=== PATIENT | female | born 1975 | race Caucasian/White ===

== ENCOUNTER 2021-01-30 16:50 | Emergency (ER) | payer OTHER, SELFPAY ==
--- NOTE | ~2021-01-30 | CT_ITS ---
EXAMINATION: CT abdomen pelvis wo con DATE: 01/30/2021 22:53 INDICATION: Constipation. Abdominal pain. TECHNIQUE: Computed tomography (CT) of the abdomen and pelvis was performed without intravenous contr ast. Automated exposure control and iterative reconstruction technique were employed. The dose-length product was 387.11 mGy-cm. COMPARISON: None FINDINGS: Lung bases are clear. Heart size is normal. No pericardial or pleural effusion. Liver, gallbladder, s pleen, pancreas and bilateral adrenal glands are normal. 2 mm calcification in the region of the left ureterovesicular junction suspicious for urolithiasis. Minimal left hydroureteronephrosis. Right kid gen and ureter are normal. Bladder is normal. T-shaped IUD in expected position within the uterus. Bi lateral adnexa are unremarkable. Bowels including the appendix are normal. Tiny fat-containing umbili itzel hernia. Postoperative changes along the anterior wall of the pelvis. No free intraperitoneal gas or fluid. No pathologically enlarged abdominal or pelvic lymphadenopathy. Bones are unremarkable. IMPRESSION: 1. Stone in the region of the distal left ureterovesicular junction suspicious for ureteral stone wit h minimal left hydroureteronephrosis. Correlate with urinalysis. 2. IUD in expected position. Reviewed, dictated and finalized at location A. [facility] IMPRESSION: 1. Stone in the region of the distal left ureterovesicular junction suspicious for ureteral stone with minimal left hydroureteronephrosis. Correlate with urin alysis. 2. IUD in expected position.
[2021-01-30 17:20] VITALS: BP 148/80; PULSE 80; RESP 17; TEMP 36.6; O2SAT 99
[2021-01-30 19:56] VITALS: BP 122/81; PULSE 75; RESP 18; TEMP 36.8; O2SAT 97
--- NOTE | 2021-01-30 21:13 | ED.GENADULT ---
HPI - General Adult General Chief complaint: Unspecified Stated complaint: constipation x1 month Time Seen by Provider: 01/30/21 21:10 Source: patient Mode of arrival: ambulatory Limitations: no limitations History of Present Illness HPI narrative: Patient is a 45-year-old female complaining of constipation x1 month. Patient states that she does have occasional abdominal discomfort, currently denies any discomfort or pain. Patient states that she did have a bowel movement today but just a little . Patient also states that she is seen her primary care physician for this and was given MiraLAX and mag citrate in the past but did not provide any relief, so her primary care physician scheduled her to see a manufacturing operations manager in February. Related Data Allergies Allergy/AdvReac Type Severity Reaction Status Date / Time No Known Allergies Allergy Verified 01/30/21 20:28 Review of Systems Review of Systems: All systems reviewed & are unremarkable except as noted in HPI and below Constitutional: Constitutional: Denies body ache(s), Denies chills, Denies excessive sweating, Denies fatigue, Denies fever(s), Denies headache(s), Denies lethargy, Denies malaise, Denies weakness and Denies weight loss Eyes: Eyes: Denies blurry vision, Denies change in vision and Denies loss of vision ENT: Denies dizziness, Denies ear discharge, Denies headache(s), Denies lip swelling, Denies epistaxis, Denies nasal congestion, Denies neck pain, Denies throat swelling and Denies tongue swelling Cardiovascular: Cardiovascular: Denies chest pain, Denies chest pain at rest, Denies chest pain with activity, Denies diaphoresis, Denies rapid heart rate, Denies edema, Denies irregular heart rhythm, Denies lightheadedness, Denies palpitations, Denies dyspnea and Denies dyspnea on exertion Respiratory: Respiratory: Denies chest congestion, Denies cough, Denies hemoptysis, Denies dyspnea and Denies dyspnea on exertion Gastrointestinal: Gastrointestinal: Denies abdominal pain, Denies melena, Denies hematochezia, Denies diarrhea, Denies nausea, Denies vomiting and Denies hematemesis Musculoskeletal: Musculoskeletal: Denies abnormal gait, Denies deformity, Denies joint swelling, Denies limited range of motion, Denies neck pain and Denies numbness Neurologic: Denies Abnormal speech present, Denies abnormal gait, Denies confusion, Denies dizziness, Denies headache(s), Denies focal weakness, Denies loss of vision, Denies numbness, Denies Other visual disturbances, Denies Sensory deficit (Neuro) and Denies weakness Psychiatric: Psychiatric: Denies confusion, Denies depression, Denies auditory hallucinations, Denies homicidal ideation and Denies suicidal ideation Endocrine: Endocrine: Denies cold intolerance, Denies excessive sweating, Denies fatigue, Denies heat intolerance and Denies palpitations Hematologic/Lymphatic: Hematologic/Lymphatic: Denies easy bleeding and Denies easy bruising Allergic/Immunologic: Allergic/Immunologic: Denies lip swelling, Denies throat swelling and Denies tongue swelling PMFSH Family History Family History Father Family history of alcoholism Social History Social History Smoking status: Former smoker Smoking end date: 03/17/03 Alcohol intake: current Comments Past medical history: Breast CA Family history: Alcoholism Social history: Former smoker, occasional EtOH use, no drug use Exam Const: General: cooperative, healthy appearing, comfortable, no acute distress, well developed, alert and awake; No confusion Orientation/consciousness: oriented to person, oriented to place, oriented to time, patient oriented x3 and No confusion Limitations: no limitations HENMT: Head: normal to inspection, normocephalic and atraumatic Ears: hearing grossly normal bilaterally, TM normal on the right and TM normal on the left General nose exa
[2021-01-30 22:18] LABS: Basophils Absolute Auto 0.1 K/mm3 (0.0-0.1); Eosinophils Absolute Auto 0.2 K/mm3 (0-0.3); Eosinophils Percent Auto 2.7 % (0-4.4); Hematocrit 38.4 % (37.0-47.0); Hemoglobin 12.9 g/dL (12.0-15.0); Immature Granulocyte Absolute 0.01 K/mm3 (0.00-0.031); Immature Granulocyte Percent A 0.1 % (0-0.5); Lymphocytes Absolute Auto 3.75 K/mm3 (0.9-3.2); Lymphocytes Percent Auto 45.5 % (18.3-44.2); Mean Corpuscular HGB Conc 33.6 g/dl (32-36); Mean Corpuscular Hemoglobin 31.1 pg (26-34); Mean Corpuscular Volume 92.5 fl (80-100); Mean Platelet Volume 9.5 fl (7.4-10.4); Monocytes Absolute Auto 0.6 K/mm3 (0.1-0.6); Monocytes Percent Auto 7.8 % (2.6-8.5); Neutrophils Absolute Auto 3.5 K/mm3 (1.3-6.7); Neutrophils Percent Auto 42.9 % (45.5-73.1); Platelet Count Result 367 k/mm3 (150-375); Red Blood Count 4.15 M/mm3 (4.2-5.4); Red Cell Distribution Width 13.5 % (11.5-14.5); White Blood Count 8.2 K/mm3 (4.5-10.0)
[2021-01-30] MEDS: SODIUM CHLORIDE 0.9% IV 1,000 ML 999 ML IV CONT (22:20)
[2021-01-30 22:30] LABS: Alanine Aminotransferase 20 U/L (4-35); Albumin Level 4.3 g/dL (3.5-5.1); Alkaline Phosphatase 61 U/L (38-126); Anion Gap 6 mmol/L (8-16); Aspartate Amino Transferase 32 U/L (14-36); Bilirubin,Total 0.3 mg/dL (0.2-1.3); Blood Urea Nitrogen 12 mg/dL (7-17); Calcium 9.1 mg/dL (8.4-10.2); Carbon Dioxide 27 mmol/L (22-30); Chloride 103 mmol/L (98-107); Estimated CRCL calculation 84 ml/min; Estimated Glomerular Filt Rate > 60; Glucose 83 mg/dL (65-110); Potassium 4.1 mmol/L (3.4-5.0); Sodium 136 mmol/L (137-145)
[2021-01-30 22:55] VITALS: BP 143/90; PULSE 80; RESP 18; TEMP 36.3; O2SAT 96
== END 2021-01-30 23:48 | disposition home or self-care (01) ==
PROVIDERS: Emergency Provider Emergency Medicine; PCP Physician Assistant
DX: N20.1 Calculus of ureter (principal); K59.00 Constipation, unspecified; Z87.891 Personal history of nicotine dependence; Z85.3 Personal history of malignant neoplasm of breast; Z97.5 Presence of (intrauterine) contraceptive device
CPT/HCPCS: 36415; 74176; 80053; 81025; 85025; 96360; 99284; J7030

== ENCOUNTER 2021-07-20 09:22 | Outpatient (CLI) | payer OTHER, SELFPAY ==
--- NOTE | ~2021-07-20 | US_ITS ---
EXAMINATION: US pelvic complete w TV DATE: 07/20/2021 12:19 INDICATION: Left-sided abdominal pain TECHNIQUE: Multiple transabdominal and endovaginal sonographic images of the pelvis were obtained. COMPARISON: CT, 01/30/2021 FINDINGS: The uterus measures 8.3 x 5.3 x 6.1 cm. An IUD appears to be in expected position. The endo metrial complex measures 6 mm. The right ovary measures 3.3 x 1.5 x 1.6 cm. The left ovary measures 2 .1 x 1.6 x 2.1 cm. There is normal vascular flow in the ovaries. There is no free fluid in the pelvis . IMPRESSION: 1. No sonographic correlate for the patient's symptoms. Reviewed, dictated and finalized at location B.
--- NOTE | ~2021-07-20 | US_ITS ---
EXAMINATION: US abdomen complete DATE: 07/20/2021 10:39 INDICATION: Left-sided abdominal pain TECHNIQUE: Multiple grayscale and Doppler ultrasound images of the abdomen were obtained. COMPARISON: None available FINDINGS: The head and body of the pancreas are normal. The pancreatic tail is obscured by bowel gas. The liver is normal with normal echogenicity and echotexture. No surface nodularity. Normal hepatope ivelisse flow in the main portal vein. The gallbladder is normal with no abnormal wall thickening, pericho lecystic fluid or stones. The normal common bile duct measures 6 mm. There was no sonographic Heller sign. The visualized portions of the aorta and inferior vena cava are normal. The right kidney measures 11.3 x 4.0 x 4.3 cm. The left kidney measures 11.1 x 4.5 x 4.5 cm. The kidn eys demonstrate normal parenchymal echogenicity. There is no hydronephrosis. The spleen is normal in appearance and measures 8.9 cm. IMPRESSION: 1. No sonographic correlate for the patient's symptoms. Reviewed, dictated and finalized at location B.
--- NOTE | ~2021-07-20 | XR_ITS ---
EXAMINATION:XR cervical spine 4-5V DATE: 07/20/2021 09:56 INDICATION: Cervicalgia TECHNIQUE: AP, lateral, lateral swimmers and odontoid views of the cervical spine are provided. COMPARISON: None FINDINGS: Alignment is normal. The odontoid is intact. No fracture is identified. The vertebral body heights are normal. There is moderate loss of intervertebral disc space height at C5-6. Small degener ative osteophytes project from the anterior endplates of multiple vertebral bodies. Posterior disc/os teophyte complex at C5-6 causes mild central canal stenosis. There is moderate facet osteoarthritis a t C5-6. Prevertebral soft tissues are normal. IMPRESSION: 1. Moderate cervical spondylosis at C5-6. Reviewed, dictated and finalized at location B.
[2021-07-20 10:55] LABS: Basophils Absolute Auto 0.1 K/mm3 (0.0-0.1); Basophils Percent Auto 0.7 % (0.2-1.2); Eosinophils Absolute Auto 0.2 K/mm3 (0-0.3); Eosinophils Percent Auto 1.8 % (0-4.4); Hematocrit 40.7 % (37.0-47.0); Hemoglobin 13.4 g/dL (12.0-15.0); Immature Granulocyte Absolute 0.01 K/mm3 (0.00-0.031); Immature Granulocyte Percent A 0.1 % (0-0.5); Lymphocytes Absolute Auto 2.33 K/mm3 (0.9-3.2); Lymphocytes Percent Auto 26.4 % (18.3-44.2); Mean Corpuscular HGB Conc 32.9 g/dl (32-36); Mean Corpuscular Hemoglobin 30.6 pg (26-34); Mean Corpuscular Volume 92.9 fl (80-100); Mean Platelet Volume 9.6 fl (7.4-10.4); Monocytes Absolute Auto 0.6 K/mm3 (0.1-0.6); Monocytes Percent Auto 6.2 % (2.6-8.5); Neutrophils Absolute Auto 5.7 K/mm3 (1.3-6.7); Neutrophils Percent Auto 64.8 % (45.5-73.1); Platelet Count Result 393 k/mm3 (150-375); Red Blood Count 4.38 M/mm3 (4.2-5.4); Red Cell Distribution Width 13.3 % (11.5-14.5); White Blood Count 8.8 K/mm3 (4.5-10.0)
[2021-07-20 11:05] LABS: Alanine Aminotransferase 15 U/L (4-35); Albumin Level 4.3 g/dL (3.5-5.1); Alkaline Phosphatase 61 U/L (38-126); Anion Gap 6 mmol/L (8-16); Aspartate Amino Transferase 27 U/L (14-36); Bilirubin,Total 0.4 mg/dL (0.2-1.3); Blood Urea Nitrogen 15 mg/dL (7-17); Calcium 8.9 mg/dL (8.4-10.2); Carbon Dioxide 25 mmol/L (22-30); Chloride 106 mmol/L (98-107); Cholesterol 196 mg/dL (0-200); Estimated Glomerular Filt Rate > 60; Glucose 150 mg/dL (65-110); HDL Direct 42 mg/dL; Potassium 4.3 mmol/L (3.4-5.0); Sodium 137 mmol/L (137-145); Triglycerides 62 mg/dL (<150)
[2021-07-20 11:16] LABS: LDL Cholesterol Direct 121 mg/dL
[2021-07-20 11:19] LABS: Hemoglobin A1C 7.4 % (<5.7)
[2021-07-20 11:52] LABS: Free T4 Free Thyroxine 1.15 ng/mL (0.78-2.19)
== END 2021-07-20 09:23 | disposition home or self-care (01) ==
PROVIDERS: PCP Nurse Practitioner Family; Visit Provider Nurse Practitioner Family
DX: E10.9 Type 1 diabetes mellitus without complications (principal); E78.5 Hyperlipidemia, unspecified; Z13.0 Encounter for screening for diseases of the blood and blood-forming organs and certain disorders involving the immune mechanism; Z13.29 Encounter for screening for other suspected endocrine disorder; M47.892 Other spondylosis, cervical region
CPT/HCPCS: 36415; 72050; 76700; 76830; 76856; 80053; 80061; 83036; 84439; 84443; 85025

== ENCOUNTER 2022-12-20 12:24 | Outpatient (CLI) | payer OTHER, SELFPAY ==
--- NOTE | ~2022-12-20 | MMUS_ITS ---
EXAMINATION: MM diagnostic jaci BI w pauly, US breast LT limited HISTORY: Patient with history of bilateral mastectomy and TRAM flap reconstruction presents with left axillary swelling TECHNIQUE: Craniocaudal, mediolateral, and mediolateral oblique 3-D tomosynthesis images of the breas ts were performed and synthetic 2-D images were generated. CAD analysis was submitted and interpreted . High resolution limited left breast ultrasound was performed. COMPARISON: No prior mammogram is currently available for comparison at this institution. BREAST PARENCHYMAL COMPOSITION: The breasts are almost entirely fatty. FINDINGS: MAMMOGRAPHIC FINDINGS: No suspicious mass, calcification, or architectural distortion are identified to suggest malignancy. ULTRASOUND: No sonographic correlate is identified for the patient's reported left axillary and upper limb swelli ng. IMPRESSION: 1. No specific mammographic or sonographic correlate is identified for the patient's reported left ax illary and upper limb swelling. Further evaluation at this time should be based on clinical assessmen t. Continued follow-up physical examination is recommended. BI-RADS Category 1: Negative Reviewed, dictated and finalized at location A. IMPRESSION: 1. No specific mammographic or sonographic correlate is identified for the marc ent's reported left axillary and upper limb swelling. Further evaluation at thi s time should be based on clinical assessment. Continued follow-up physical exa mination is recommended. BI-RADS Category 1: Negative
== END 2022-12-20 12:25 | disposition home or self-care (01) ==
LOC: ANHIMG 12:26
PROVIDERS: PCP Nurse Practitioner Family; Visit Provider Nurse Practitioner Family
DX: R59.0 Localized enlarged lymph nodes (principal)
CPT/HCPCS: 76642; 77062; 77066; G0279

== ENCOUNTER 2024-08-09 08:30 | Emergency (ER) | payer MEDICAID, SELFPAY ==
[2024-08-09] VITALS (11 sets, daily range): BP systolic 140–168; BP diastolic 67–127; PULSE 52–77; RESP 14–27; TEMP 36.4–36.5; O2SAT 99–100
--- OUTSIDE RECORDS SUMMARY | 2024-08-09 08:32 | XMS_ITS | Clinical Summary ---
Author Organization [facility] Address [address] [place] [address] Care Team Providers Care Bank Examiner Name Role Phone Kirit Cohen Primary Care Provider [phone] Source Comments [facility],non-owned Affiliates and Associated Physician Practices is amultiple site organization consisting of ambulatory clinics and hospital sitesin [place], [place], [place] and [place]. This disclosure is being madepursuant to the Care Everywhere program and may not contain all information available regarding this patient. Last updated 17.[facility] Allergies No known active allergies Medications * Be aware that medications may not be up to date on this document. Alwaysverify current medications with the patient. 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) RUSTY Dexcom G6 Machine Set Up Operator misc Active ibuprofen (MOTRIN) 200 MG tablet Take 200 mg by mouth Active magnesium gluconate (MAGTRATE) 500 MG tablet Take 500 mg by mouth once daily Active buPROPion HCl (WELLBUTRIN SR PO) Take 50 mg by mouth once daily Active sertraline (Zoloft) 50 MG tablet Take 1 (one) tablet by mouth once daily Active Active Problems Problem Noted Date Diagnosed Date Neoplasm of uncertain behavior of skin Assessment & Plan (09/06/2020 10:43 AM CDT): R nasal tip x1 - Ddx: SK vs angiofibroma vs less likely pigmented BCC - Photo taken today for clinical monitoring - Re-check in 3-4 months for any changes Multiple benign melanocytic nevi of upper extremity, lower extremity, and trunk 09/06/2020 Assessment & Plan (09/06/2020 10:42 AM CDT): - No atypical or concerning moles on exam today - Reviewed ABCDEs of melanoma - Sun protection reviewed, handout provided - Annual FBSE recommended Dermatofibroma of multiple sites of lower extrem ity 09/06/2020 Assessment & Plan (09/06/2020 10:42 AM CDT): Right upper thigh x1, right lower leg x1, left posterior lower leg x1 - Etiology discussed - Benign, reassured patient Lentigines 09/06/2020 Assessment & Plan (09/06/2020 10:41 AM CDT): - Benign, patient reassured - Skin cancer, sun protection, and photoaging discussed - Sunscreen handout provided Alopecia areata 09/06/2020 Assessment & Plan (09/06/2020 10:53 AM CDT): - In remission History of left breast cancer 07/20/2020 Overview (09/06/2020): Added automatically from request for surgery [id number] Malignant neoplasm of female breast 02/03/2020 Overview (09/06/2020): Added automatically from request for surgery [id number] Ductal carcinoma in situ (DCIS) of left breast 1 Overview (09/06/2020): Added automatically from request for surgery [id number] Mixed hyperlipidemia 09/19/2017 Overview (09/06/2020): Last Assessment & Plan: Lipid abnormalities are elevated LDL. 12/2015 LDL was 168 at which time she was started on atorvastatin. She stopped taking the lipitor and does not want to restart We will recheck at her next apt and address then Lipids will be reassessed in 3 months. Anaclitic depression 07/08/2016 Excess or deficiency of vitamin D 07/08/2016 Type 1 diabetes mellitus without complication Overview (09/06/2020): DMI WO CMP NT ST UNCNTRL Last Assessment & Plan: Diabetes is unchanged. Reminded to bring in blood sugar diary at next visit. Discussed ways to avoid symptomatic hypoglycemia. Discussed foot care. Diabetes will be reassessed in 3 months. Continue insulin pump at the settings listed below: Medtronic 530G BASAL: 0000: 1.05 units/hour-->1.0 units/hour 0330: 0.975 units/hour--> 1.0 units/hour total daily basal is 24.6 units BOLUS ICR 0000: 1 unit per 8 grams SENSITIVITY 0000: 52 TARGET 0000: 100 - 115 IOB: 4 hours Dermatofibroma 12/01/2012 Resolved Problems Problem Noted Date Diagnosed Date Resolved Date Constipation 12/30/2017 10/04/2020 Overview (09/06/2020): Constipation for previous 2-3 weeks Last Assessment & Plan: For constipation: Drink at least 8 8oz glasses of water per day Try to walk for 20 minutes a day Eat 3-4 servings of fruits and vegetables each day (contain fiber) Take Miralax as needed Family History Medical History Relation Name Comments None Known Brother None Known Father None Known Maternal Aunt None Known Maternal Grandfather None Known Maternal Grandmother None Known Maternal Uncle None Known Mother None Known Other None Known Paternal Aunt None Known Paternal Grandfather None Known Paternal Grandmother None Known Paternal Uncle None Known Sister Asthma Neg Hx CVA Neg Hx Cancer - Breast Neg Hx Cancer - Other Neg Hx Cancer - Skin, Melanoma Neg Hx Cancer - Skin, Non Melanoma Neg Hx Eczema Neg Hx Hemophilia Neg Hx Psoriasis Neg Hx Relation Name Status Comments Brother Father Maternal Aunt Maternal Grandfather Maternal Grandmother Maternal Uncle Mother Other Paternal Aunt Paternal Grandfather Paternal Grandmother Paternal Uncle Sister Social History Tobacco Use Types Packs/Day Years Used Date Smoking Tobacco: Former Cigarettes Smokeless Tobacco: Never Tobacco Cessation:Counseling Given: No Alcohol Use Standard Drinks/Week Comments Never 0 (1 standard drink = 0.6 oz pur e alcohol) AUDIT-C Answer Date Recorded Frequency of Alcohol Consumption Never 12/23/2018 Average Number of Drinks Not on file 019 Frequency of Binge Drinking Not on file 11/2018 Comments Unknown Sex and Gender Information Value Date Recorded Sex Assigned at Not on file Legal Sex Female 3:25 PM CDT Gender Identity Female 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 Sexual Orientation Not on file Last Filed Vital Signs Vital Sign Reading Time Taken Comments Blood Pressure 132/94 04/17/2021 7:34 AM [employer]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 Pulse 85 04/17/2021 7:34 AM [employer]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 Temperature - - Respiratory Rate - - Oxygen Saturation - - Inhaled Oxygen Concentration - - Weight 68.9 kg (152 lb) 04/17/2021 7:34 AM [employer]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 Height 160 cm (5' 3) 04/17/2021 7:34 AM [employer]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 Body Mass Index 26.93 04/17/2021 7:34 AM [employer]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 Plan of Treatment Health Maintenance Due Date Last Done Comments COLOGUARD (AGES 45-75) - COLON CA SCREENING [address] COLONOGRAPHY - COLON CA SCREENING 1976 FIT - COLON CA SCREENING 1976 FLEX SIG - COLON CA SCREENING 1976 PAP SMEAR 1976 HIV SCREENING 07/14/1991 HEPATITIS C SCREENING 07/09/1994 DIABETES-SERUM CREATININE 1994 DTAP/TDAP/TD VACCINES (1 - Tdap) 07/14/1995 HEPATITIS B VACCINE (1 of 3 - 19+ 3-dose series) 07/14/1995 PNEUMOCOCCAL VACCINE (1 of 2 - PCV) 07/14/1995 DIABETES-STATIN 2016 DIABETES RETINOPATHY SCREENING 11/03/2019 DIABETES-FOOT EXAM WITH MONOFILAMENT 11/03/2019 DIABETES-HGB A1C 08/21/2020 02/21/2020 COVID-19 VACCINE (2 - season) 2023 07/31/2020 DEPRESSION SCREENING 03/17/2024 DIABETES - URINE PROTEIN SCREENING 03/17/2024 INFLUENZA VACCINE (Season Ended) 2024 01/22/2020, 01/26/2018, 01/13/2017, Additional history exists ZOSTER VACCINE (1 of 2) 2026 COLONOSCOPY - COLON CA SCREENING 05/09/2031 05/09/2021 Colorectal Cancer Screening 05/09/2031 HIB VACCINE Aged Out No longer eligi ble based on patient's age to complete this topic HPV VACCINE Aged Out No longer eligi ble based on patient's age to complete this topic MENINGOCOCCAL (Group B) VACCINE SHARED DECISION-MAKING Aged Out No longer eligible based on patient's age to complete this topic MENINGOCOCCAL GROUPS A/C/Y/W VACCINE Aged Out No longer eligible based on patient's age to complete this topic Insurance Care Teams Bank Examiner Relationship Specialty Start Date End Date Nanney, Kirit, PA [address] [place] [address] PCP - General 11/23/18
--- OUTSIDE RECORDS SUMMARY | 2024-08-09 08:33 | XMS_ITS | Referral Summary ---
Author Organization [facility] Address [address] [place] [address] Care Team Providers Care Water Pumping Station Engineer Name Role Phone Celestine Monroe PT Unavailable Unavaila ble Cherie Parker FACILITY PRACTICE SPECIALIST Unavailable Unavailab Katherine Delvalle AUTISTIC TEACHER Primary Care Provider [phone] Frida Nogueira AUTISTIC TEACHER Unavailable [phone] Halina Treviño MD PhD Unavaila ble Encounters Date Type Department Care Team Description 08/04/2024 Telephone [facility] [address] [address] Concepcion Balderrama MD Prior Auth (Dexcom G7) 08/03/2024 Telephone [facility] Diabetes and Endocrinology [address] [place] [phone] Concepcion Balderrama MD Prior Auth (Admelog) 07/08/2024 Orders Only [facility] Primary Care at [address] [phone] Katherine East NP 07/07/2024 Results Follow-Up [facility] Primary Care at [address] [phone] Katherine East NP Erythrocyte sedimentation rate, CRP (acute phase), Rheumatoid factor, Additional followed-up results: 3 07/06/2024 Orders Only [facility] Primary Care at [address] [phone] Katherine East NP 07/06/2024 Telephone [facility] Primary Care at [address] [phone] Katherine East NP PA for Nexlizet 180-10MG tablets 07/05/2024 3:30 PM CDT - 07/05/2024 11:59 PM CDT Hospital Encounter [address] [address] Arthralgia of multiple joints; Vitamin D deficiency; Mixed hyperlipidemia Discharge Disposition: Discharge to home or self care 07/05/2024 3:30 PM CDT Lab [facility] Outpatient Lab at [address] [phone] 07/05/2024 3:00 PM CDT Office Visit [facility] Primary Care at [address] [phone] Katherine East NP Annual physical exam (Primary Dx); Mixed hyperlipidemia; Anxiety; Arthralgia of multiple joints; Vitamin D deficiency 07/01/2024 Telephone [facility] [address] [address] Concepcion Balderrama MD 06/29/2024 Telephone [facility] [address] [address] Concepcion Balderrama MD 05/20/2024 5:15 PM STEEP TENDER Office Visit [facility] at [address] [phone] Nathaniel Mcdowell NP Acute maxillary sinusitis, recurrence not specified (Primary Dx) from Last 3 Months Allergies No known active allergies Medications blood-glucose meter,continuous (Dexcom G6 Asphalt Spreader) [facility] Dexcom G6 Asphalt Spreader [facility] Active BD Insulin Syringe Ultra-Fine 0.5 mL 31 gauge x 5/16 syringe 07/08/19 Active blood glucose diagnostic (glucose blood) strip Graphene TechnologiesTouch Ultra Test strips Active dasiglucagon (Zegalogue Autoinjector) 0.6 mg/0.6 mL auto-injector Has never used A ctive meloxicam (MOBIC) 7.5 mg tablet Take 1 tablet (7.5 mg total) by mouth daily as needed for pain 30 tablet 1 01/07/20 24 Active blood-glucose transmitter (Dexcom G6 Transmitter) deviceIndications :Type 1 diabetes mellitus without complication (HCC) Use to check blood sugar 1 each 1 02/02/20 24 Active dicyclomine (BENTYL) 10 mg capsule Take 1 capsule (10 mg total) by mouth 4 (four) times a day before meals and nightly 120 capsule 11 02/11/20 24 025 Active Additional Information Patient not taking.Reported on 07/05/2024 sertraline (ZOLOFT) 100 mg tablet Take 1 tablet (100 mg total) by mouth daily 90 tablet 1 06/02/19 25 Active insulin lispro (ADMELOG) 100 unit/mL vial for injectionIndicati ons:Type 1 diabetes mellitus with hyperglycemia (HCC),Insulin pump in place Inject 110 units under the skin daily 40 mL 6 06/30/19 25 Active Dexcom G7 Sensor deviceIndications :Type 1 diabetes mellitus with hyperglycemia (HCC),Insulin pump in place,Type 1 diabetes mellitus without complication (HCC) Change sensor every 10 days 3 each 2 07/02/19 25 Active buPROPion SR (ZYBAN) 150 mg 12 hr tablet Take 1 tablet (150 mg total) by mouth 2 (two) times a day One tablet by mouth x 3 days and then change to twice daily. 180 tablet 1 07/06/19 25 Active clonazePAM (KlonoPIN) 0.5 mg tablet Take 1 tablet (0.5 mg total) by mouth daily as needed for anxiety 30 tablet 07/06/19 25 Active ezetimibe (ZETIA) 10 mg tablet Take 1 tablet (10 mg total) by mouth daily 90 tablet 1 07/07/19 25 Active methylPREDNISolon e (MEDROL DOSEPACK) 4 mg Dosepack Take as directed on package. 21 tablet 07/09/19 25 025 Active Problems Problem Noted Date Diagnosed Date Type 1 diabetes mellitus with hyperglycemia 03/19 Assessment & Plan (04/22/2024 9:59 AM STEEP TENDER): Chronic problem, not at goal. I emailed [employer] rep to help Francie get upgraded to G7 since she doesn't have a computer. She'll let us know when she does this and we can send in rx. Otherwise we reviewed her pump download. She tends to often late bolus and then goes low, with rebound hyperglycemia. Or will enter extra carbs between meals, and has high glycemic variability. Asked her to focus right now on bolusing aC only, and avoid between meal dosing. Then can see what adjustments need to be made. Her basal rates are good in evening/overnight when she does not snack as much or has better bolus habits. Request eye exam. Abdominal wall bulge 02/24/2024 Assessment & Plan (02/24/2024 11:21 AM STEEP TENDER): I do not appreciate any clear fascial defect on exam. I will start by ordering a CT scan of the abdomen pelvis to better appreciate this area. We have discussed that in patients with flap reconstruction at times it will leave some focal asymmetry as the muscle has been lessened which causes more of a diastasis and prominence. This versus a true defect within the fascia. Based on what we find on imaging the options for proceeding further would defer. As soon as the skin returns we will call the patient back and discuss further plan of action. She was in understanding of the plan. Colicky RUQ abdominal pain 02/22/2024 Assessment & Plan (02/22/2024 11:57 PM STEEP TENDER): - Differential includes biliary colic, GERD, PUD, DM 1 associated gastroparesis, IBS - On meloxicam, recommend adding daily PPI or famotidine for gastric prophylaxis - Eat smaller frequent meals - Follow labs and abdominal ultrasound - Instructed to go the ED if progression of symptoms Hyperlipidemia due to type 1 diabetes mellitus 1 03/22/2023 Assessment & Plan (04/22/2024 9:57 AM STEEP TENDER): Chronic problem. On statin therapy, no changes. Assessment & Plan (01/21/2024 1:49 PM STEEP TENDER): Continue statin therapy Insulin pump in place 01/21/2024 Assessment & Plan (04/22/2024 9:57 AM STEEP TENDER): No pump setting changes. Assessment & Plan (01/21/2024 1:54 PM STEEP TENDER): Have long acting , basal insulin ( e.g. Lantus, Levemir, NPH, ) and insulin syringes as back up in case of pump failure If you have to take your insulin pump off for more than 12 h, start taking basal insulin, every 24 h ( take 80 % of the 24 h insulin delivered to you via insulin pump as calculated based on your basal rates ) and inject meal time insulin by injections, calculating the same way you do with your pump bolus ( according with carb intake and blood sugar readings ) Closed fracture of nasal bones 07/10/2023 Nasal obstruction 07/10/2023 Injury of nose 07/10/2023 Deviated septum 05/20/2023 Assessment & Plan (05/20/2023 5:54 PM STEEP TENDER): Refer to plastic surgery for eval Allergic rhinitis 05/20/2023 Assessment & Plan (05/20/2023 5:55 PM STEEP TENDER): Consider OTC antihistamine daily. Monitor for improvement Right wrist pain 05/20/2023 Assessment & Plan (05/20/2023 5:54 PM STEEP TENDER): Refer to Ortho Muscle strain 11/15/2022 Conjunctivitis 09/10/2022 Fracture of foot 07/02/2022 Arthralgia of left elbow 11/29/2021 Dyslipidemia 11/05/2021 Uncontrolled type 1 diabetes mellitus with hyper glycemia 11/05/2021 Major depressive disorder, recurrent episode, mo derate 07/25/2021 Assessment & Plan (11/24/2023 3:53 PM CDT): Improved on the Sertraline 100 mg daily, will continue. Assessment & Plan (10/22/2023 3:52 PM CDT): Not at goal, worse around menses. Denies SI/HI. Will increase Sertraline to 100 mg daily. Anxiety 07/25/2021 Assessment & Plan (07/05/2024 3:45 PM CDT): Not overly at goal on the Sertraline 100 mg Will try the Zyban again for smoking cessation, may help with anxiety also. Pt has old rx of Valium for prn panic attacks from previous PCP, takes 1- 2x/month. Inquiring about refill. Will give rx for prn Clonazepam instead for panic attacks. Alcohol abuse, in remission 07/25/2021 Neck pain 07/09/2021 Pain in joint of left shoulder 07/09/2021 Paresthesia of upper limb 07/09/2021 Depressive disorder 07/09/2021 Anxiety 07/09/2021 Malignant tumor of breast 07/09/2021 Overview (10/22/2023): diagnosed 11/2019, mastectomy 01/2020 Hyperlipidemia 07/09/2021 Assessment & Plan (11/24/2023 3:54 PM CDT): Continuing Atorvastatin (re-started after recent lipid panel). Discussed if starts to get myalgias to let me know and we can see about decreasing to the 20 mg. Irritable bowel syndrome without diarrhea 2021 Bloating 06/06/2021 Bilateral lower abdominal cramping 06/06/2021 Tubular adenoma of colon 06/06/2021 Alopecia areata 09/06/2020 Overview (10/24/2020): Last Assessment & Plan: - In remission Lentigines 09/06/2020 Overview (10/24/2020): Last Assessment & Plan: - Benign, patient reassured - Skin cancer, sun protection, and photoaging discussed - Sunscreen handout provided Multiple benign melanocytic nevi of upper extremity, lower extremity, and trunk 09/06/2020 Overview (10/24/2020): Last Assessment & Plan: - No atypical or concerning moles on exam today - Reviewed ABCDEs of melanoma - Sun protection reviewed, handout provided - Annual FBSE recommended Neoplasm of uncertain behavior of skin Overview (10/24/2020): Last Assessment & Plan: R nasal tip x1 - Ddx: SK vs angiofibroma vs less likely pigmented BCC - Photo taken today for clinical monitoring - Re-check in 3-4 months for any changes History of breast cancer 07/20/2020 Overview (07/20/2020): Added automatically from request for surgery [id number] Malignant neoplasm of female breast 02/03/2020 Overview (02/03/2020): Added automatically from request for surgery [id number] Assessment & Plan (10/22/2023 3:50 PM CDT): 2020 diagnosed, had double mastectomy. 1 more year of surveillance with Oncologist. Ductal carcinoma in situ of left breast 02/03/20 20 Overview (02/03/2020): Added automatically from request for surgery [id number] Ductal carcinoma in situ (DCIS) of left breast 1 Constipation 12/30/2017 Overview (12/30/2017): Constipation for previous 2-3 weeks Assessment & Plan (12/30/2017 5:16 PM CDT): For constipation: Drink at least 8 8oz glasses of water per day Try to walk for 20 minutes a day Eat 3-4 servings of fruits and vegetables each day (contain fiber) Take Miralax as needed Mixed hyperlipidemia 09/19/2017 Assessment & Plan (07/05/2024 3:46 PM CDT): Not tolerating Rosuvastatin, arthralgia's etc. Same side effect with Atorvastatin in the past. Will trial Nexlizet Assessment & Plan (09/19/2017 2:05 PM CDT): Lipid abnormalities are elevated LDL. 12/2015 LDL was 168 at which time she was started on atorvastatin. She stopped taking the lipitor and does not want to restart We will recheck at her next apt and address then Lipids will be reassessed in 3 months. Anaclitic depression 07/08/2016 Vitamin D deficiency 07/08/2016 Type 1 diabetes mellitus without complication Overview (06/20/2016): DMI WO CMP NT ST UNCNTRL Assessment & Plan (01/21/2024 1:54 PM STEEP TENDER): Chronic, uncontrolled, worsening A1c 8.9% goal A1c at least less than 7% without hypoglycemia Reviewed tandem download and CGM Average glucose 178 within target blood sugar range 61 to 62% High 28% Very high 10% Low 0.8% Very low 0.1% Consistent blood sugars during daytime but consistent mild hyperglycemia noted overnight Advise to work on healthy snacking at night Counseled on diet and exercise Advised to reach out a tandem to see if she can ablate her pump so that she can start using Dexcom G7 Recommend annual dilated eye exam Educated on hypoglycemia Assessment & Plan (10/22/2023 3:50 PM CDT): Last A1c x 6 months ago was 8.2. In need of new Flight Control Manager. Referral placed and updated labs ordered. Assessment & Plan (12/30/2017 5:15 PM CDT): Diabetes is unchanged. Reminded to bring in [...] 0000: 100 - 115 IOB: 4 hours Assessment & Plan (09/19/2017 2:01 PM CDT): The A1c today is 8.7% which is the lowest she has had. The download shows that she has relatively good readings through the day but is waking high. She is snacking through the evening, going to bed high. She agrees to cut down on snacking, stop earlier, and trying to correct before HS Diabetes will be reassessed in 3 months. Dermatofibroma 12/01/2012 Resolved Problems Problem Noted Date Diagnosed Date Resolved Date Type 1 diabetes mellitus not at goal 11/05/2021 04/15/2024 Type 1 diabetes mellitus 07/09/2021 Immunizations Immunization Administration Dates Next Due Influenza, Quadrivalent, Spl it, Intramuscular 01/26/2018,01/13/2017 Influenza, Quadrivalent, Spl it, Preservative Free, Intramuscular 01/22/2020 Influenza, Trivalent, Preser vative Free, Intramuscular 01/06/2015 Influenza, Unspecified 03/17/2023(Deferr ed: Patient Refused),03/17/2022(Deferred: Patient Refused) Moderna SARS-CoV-2 Monovalen t Vaccination (12+ YRS) 07/31/2020 Pneumococcal Conjugate Pcv20 10/22/2023 Social History Tobacco Use Types Packs/Day Years Used Date Smoking Tobacco: Every Day Cigarettes 0.3 42.4 Started: 03/17/1982 Smokeless Tobacco: Never Alcohol Use Standard Drinks/Week Comments No 0 (1 standard drink = 0.6 oz pur e alcohol) AUDIT-C Answer Date Recorded Q1: How often do you have a drink containing alcohol? Never 12/22/2023 Q2: How many drinks containi ng alcohol do you have on a typical day when you are drinking? Patient does not drink Q3: How often do you have si x or more drinks on one occasion? Never 12/22/2023 PHQ-2 Answer Date Recorded PHQ-2 Total Score (If total score is 3 or more points, staff should administer the PHQ-9) 2 07/05/2024 Personal Safety Answer Date Recorded Have you ever been in or are you currently in a harmful physical or emotional relationship or is someone making you feel afraid or unsafe? Denies 10/01/2023 Comments No Sex and Gender Information Value Date Recorded Sex Assigned at Not on file Legal Sex Female 8:58 AM STEEP TENDER Gender Identity Not on file Sexual Orientation Not on file Last Filed Vital Signs Vital Sign Reading Time Taken Comments Blood Pressure 114/72 07/05/2024 3:03 PM CDT Pulse 119 07/05/2024 3:03 PM CDT Temperature 37.1 C (98.7 F) 07/05/2024 3:03 PM CDT Respiratory Rate 18 05/20/2024 5:25 PM STEEP TENDER Oxygen Saturation 95% 07/05/2024 3:03 PM CDT Inhaled Oxygen Concentration - - Weight 71.2 kg (157 lb) 07/05/2024 3:03 PM CDT Height 157.5 cm (5' 2.01) 07/05/2024 3:03 PM CD T Body Mass Index 28.71 07/05/2024 3:03 PM CDT Plan of Treatment Not on file Medical Devices Implanted Type Area Steam Clean Machine Operator Device Identifier Shelf Expiration Date Model / Serial / Lot Synovis Mitro Allian [id number] [place] Microvascular 3mm Ring Pin Protective Cover Jaw Assembly Latex Free - S0 - [id number] Implanted:Qty: 1 on 02/21/2020 by Jose Herrera MD at [facility] Clip Right: Breast Syn[employer]is Mitro Allian [id number] 10/13/2024 [id number] / 0 / [id number] Description:3.0 manufacturing quality inspector [employer] Mitro Allian 2753 [place] 2.5mm Ring Pin Ultrasonic Doppler 20mhz Opthalmic Tech Anastomosis Latex Free - S0 - [id number] Implanted:Qty: 1 on 02/21/2020 by Vandana Bergman MD at [facility] Clip Left: Breast Synovis ICU Metrixian [id number] 09/25/2024 [id number] / 0 / [id number] [employer]/C R Bard [id number] Phasix 8x6in Monofilament Scaffold Full Resorbable Rectangle Mesh - S0 - [id number] Implanted:Qty: 1 on 02/21/2020 by Vandana Bergman MD at [facility] Mesh Bilateral: Abdomen [employer]/C R Bard [id number] 04/13/2021 [id number] / 0 / [id number] Sientra Inc Allox2-14se Allox 14x11.2cm Smooth Surface Integrate Port Breast P6-7.3cm Mid - [id number] - [id number] Implanted:Qty: 1 on 01/21/2020 by Vandana Bergman MD at [facility] Right: Chest [employer] 08/10/2024 ALLOX2-14S E / [id number] / S[employer] Allox2-Fh14se Allox2 14x12.9cm Smooth Surface Integrate Port Breast P6.1-7.3cm - [id number] - [id number] Implanted:Qty: 1 on 01/21/2020 by Vandana Bergman MD at [facility] Left: Chest [employer]ient[employer] Inc 09/20/2024 ALLOX2-FH1 4SE / [id number] / Allergan [employer] [id number] Alloderm Select [id number] Allograft Regenerative Freeze Dried - [id number] Implanted:Qty: 1 on 01/21/2020 by Vandana Bergman MD at [facility] Left: Chest [employer] [id number] 09/13/2021 [id number] / / [id number] [employer] [id number] Alloderm Select [id number] Allograft Regenerative Freeze Dried - [id number] Implanted:Qty: 1 on 01/21/2020 by Vandana Bergman MD at [facility] Right: Chest [employer] [id number] 09/13/2021 [id number] / / [id number] Procedures Procedure Name Priority Date/Time Associated Diagnosis Comments LIPID PANEL Routine 07/05/2024 3:30 PM CDT Mixed hyperlipidemia VITAMIN D 25 HYDROXY Routine 07/05/2024 3:30 PM CDT Vitamin D deficiency CARLYN QUALITATIVE WITH REFLEX TO CARLYN QUANTITATIVE Routine 07/05/2024 3:30 PM CDT Arthralgia of multiple joints RHEUMATOID FACTOR Routine 07/05/2024 3:3 0 PM CDT Arthralgia of multiple joints CRP (ACUTE PHASE) Routine 07/05/2024 3:3 0 PM CDT Arthralgia of multiple joints ERYTHROCYTE SEDIMENTATION RATE Routine 07/05/2024 3:30 PM CDT Arthralgia of multiple joints POCT HEMOGLOBIN A1C Routine 04/22/2024 9 :11 AM STEEP TENDER Type 1 diabetes mellitus with hyperglycemia (HCC) EGFR Routine 02/11/2024 12:00 PM STEEP TENDER Colicky RUQ abdominal pain HM DIABETES EYE EXAM Routine 01/19/2024 7:54 AM STEEP TENDER ALBUMIN CREATININE RATIO, URINE Routine 10/24/2023 10:15 AM CDT Type 1 diabetes mellitus without complication (HCC) HEPATITIS C ANTIBODY Routine 10/22/2023 4:00 PM CDT Encounter for hepatitis C screening test for low risk patient THYROID FUNCTION CASCADE Routine 10/22/2023 4:00 PM CDT Type 1 diabetes mellitus without complication (HCC) COLONOSCOPY 05/09/2021 11:16 AM STEEP TENDER SCREENING MAMMOGRAM BILATERAL W MAX Schedule Routine, Read Routine (OP Routine) 09/22/2019 10:12 AM CDT Encounter for screening mammogram for malignant neoplasm of breast from Last 3 Months or Most Recently Relevant to Health Maintenance Results * CARLYN ab ql w/rflx to CARLYN qn (07/05/2024 3:30 PM CDT) CARLYN Negative Comment: Interpretive Data Normal range for CARLYN Qualitative Antibody = Negative. 1. CARLYN is performed using indirect immunofluorescence against HEp-2 cells 2. CARLYN titers are performed on all positive qualitative results. 3. A significantly positive CARLYN result is defined as a positive nuclear fluorescence at a titer of 1:80 or greater. 4. 15% of normal people above age 65 have significantly positive CARLYN results. 5% or less of normal people age 65 or under have significantly positive CARLYN results. Current interpretive data was last revised on 2019. Testing performed by: [facility], [address], [place]., [address] Blood 07/05/2024 3:30 PM CDT 07/06/2024 10:10 AM CDT us Katherine East AUTISTIC TEACHER LAB BLOOD ORDERABLES Final Resul t EDISONFILI BOYD [id number] [facility] [place] [address] * Vitamin D 25 hydroxy (07/05/2024 3:30 PM CDT) Vitamin D 25-OH 30 30 - 80 ng/mL Blood 07/05/2024 3:30 PM CDT 07/05/2024 9:56 PM CDT us Katherine East AUTISTIC TEACHER LAB BLOOD ORDERABLES Final Resul t Performing Organization Address [facility] Co de Phone Number EDYTA OLIVER [id number] [place] [address] * (ABNORMAL) Erythrocyte sedimentation rate (07/05/2024 3:30 PM CDT) Pathologist [facility] Erythrocyte sedimentation rate 57(H) 1 - 20 mm/hr Comment:Testing performed by : [facility], [address] [facility], [place], [address] Blood 07/05/2024 3:30 PM CDT 07/05/2024 7:15 PM CDT us Katherine East AUTISTIC TEACHER LAB BLOOD ORDERABLES Final Resul t EDISONFILI BOYD [id number] [place] [address] * Rheumatoid factor (07/05/2024 3:30 PM CDT) Rheumatoid factor, quant <10 <=15 IUnits/mL Blood 07/05/2024 3:30 PM CDT 07/05/2024 9:56 PM CDT us Katherine East AUTISTIC TEACHER LAB BLOOD ORDERABLES Final Resul t Performing Organization Address City/[facility] Co de Phone Number EDYTA BOYD [phone] [place] [address] * CRP (acute phase) (07/05/2024 3:30 PM CDT) CRP 3.3 <=10.0 mg/L Blood 07/05/2024 3:30 PM CDT 07/05/2024 9:56 PM CDT us Katherine East AUTISTIC TEACHER LAB BLOOD ORDERABLES Final Resul t Performing Organization Address [facility] de Phone Number EDYTA BOYD [phone] [place] [address] * Lipid panel (07/05/2024 3:30 PM CDT) Cholesterol 173 30 - 199 mg/dL Comment: Interpretive Data Ages < or = 19 years Acceptable: <170 mg/dL Borderline high: 170-199 mg/dL High: >or= 200 mg/dL Ages > or = 20 years Desirable: <200 mg/dL Borderline high: 200-239 mg/dL High: >or= 240 mg/dL Literature References: 1. Expert Panel on Integrated Guidelines for Cardiovascular Health and Risk Reduction in Children and Adolescents. Pediatrics 2011;128:S213 2. NCEP Expert Panel. Circulation 2004;110:227 Current Interpretive Data was last revised on 2017. Triglycerides 58 <=149 mg/dL EDYTA BOYD Comment: Interpretive Data Ages < or = 9 years Acceptable: <75 mg/dL Borderline high: 75-99 mg/dL High: >or= 100 mg/dL Ages 10 to 20 years Acceptable: <90 mg/dL Borderline high: 90-129 mg/dL High: >or= 130 mg/dL Ages > or = 20 years Desirable: <150 mg/dL Borderline high: 150-199 mg/dL High: 200-499 mg/dL Very high: >or= 499 mg/dL Literature References: 1. Expert Panel on Integrated Guidelines for Cardiovascular Health and Risk Reduction in Children and Adolescents. Pediatrics 2011;128:S213 2. NCEP Expert Panel. Circulation 2004;110:227 Current Interpretive Data was last revised on 2017. HDL 50 >=40 mg/dL EDYTA BOYD Comment: Interpretive Data Ages < or = 19 years Acceptable: >45 mg/dL Borderline low: 40-45 mg/dL Low: <40 mg/dL Ages > or = 20 years Desirable: >or= 60 mg/dL Low: <40 mg/dL Literature References: 1. Expert Panel on Integrated Guidelines for Cardiovascular Health and Risk Reduction in Children and Adolescents. Pediatrics 2011;128:S213 2. NCEP Expert Panel. Circulation 2004;110:227 Current Interpretive Data was last revised on 2017. LDL, calculated 112 <=129 mg/dL EDYTA BOYD Comment: Interpretive Data Ages < or = 19 years Acceptable: <110 mg/dL Borderline high: 110-129 mg/dL High: >or= 130 mg/dL Ages > or = 20 years Optimal: <100 mg/dL Near optimal: 100-129 mg/dL Borderline high: 130-159 mg/dL High: >160 mg/dL Calculated using the Titi LDL-C estimating equation. This equation was implemented on 2023. Prior to this date LDL-C was estimated using the Friedewald equation. Literature References: 1. Expert Panel on Integrated Guidelines for Cardiovascular Health and Risk Reduction in Children and Adolescents. Pediatrics 2011;128:S213 2. NCEP Expert Panel. Circulation 2004;110:227 3. Titi Rucker et al. NING Cardiol. 2020 July 15;5(5):540-548. doi: 10.1001/jamacardio.2020.0013 Current Interpretive Data was last revised on 2023. Non-HDL Cholesterol 123 mg/dL EDYTA BOYD Comment: Interpretive Data Ages < or = 19 years Acceptable: <120 mg/dL Borderline high: 120-144 mg/dL High: >145 mg/dL Ages > or = 20 years When triglycerides are >200 mg/dL, Non-HDL cholesterol is a secondary target of therapy with treatment goals that are 30 mg/dL greater than the LDL cholesterol target. Literature References: 1. Expert Panel on Integrated Guidelines for Cardiovascular Health and Risk Reduction in Children and Adolescents. Pediatrics 2011;128:S213 2. NCEP Expert Panel. Circulation 2004;110:227 Current Interpretive Data was last revised on 2017. Chol/HDL ratio 3 EDYTA BOYD Blood 07/05/2024 3:30 PM CDT 07/05/2024 9:56 PM CDT Katherine East NP LAB BLOOD ORDERABLES Final Resul t EDYTA [id number] Department [place] [address] * (ABNORMAL) POCT hemoglobin A1c (04/22/2024 9:11 AM STEEP TENDER) Hemoglobin A1C, POC 8.4 4.0 - 5.6 % Capillary blood 04/22/2024 9 :11 AM STEEP TENDER Bethany DELACRUZ POINT OF CARE TEST ORDE RABZ[place]AL[place] Final Result * eGFR (02/11/2024 12:00 PM STEEP TENDER) eGFR >90 >=60 mL/min/1. 73 m2 Comment: Interpretive Data Reference Interval Normal >/= 90 mL/min/1.73m2 Mildly decreased* 60 - 89 mL/min/1.73m2 Mildly to moderately decreased 45 - 59 mL/min/1.73m2 Moderately to severely decreased 30 - 44 mL/min/1.73m2 Severely decreased 15 - 29 mL/min/1.73m2 Kidney Failure < 15 mL/min/1.73m2 *Relative to young adult level Estimated glomerular filtration rate is determined by the 2020 CKD-EPI equation recommended by the National Kidney Foundation (A Unifying Approach to GFR Estimation: Recommendations of the NKF-ASK Task Force on Reassessing the Inclusion of Race in Diagnosing Kidney Disease, JASN 2020). The CKD-EPI equation should not be used for patients with unstable renal function and has not been validated in children and those over 70. Current interpretive data was last reviewed 2021. Blood 02/11/2024 12:0 0 PM STEEP TENDER 02/11/2024 7:54 PM STEEP TENDER Whitney Matthews AUTISTIC TEACHER LAB BLOOD ORDERABLES Final R esult Performing Organization Address [facility] Co de Phone Number EDYTA BOYD [address] [place] [address] * HM DIABETES EYE EXAM (01/19/2024 7:54 AM STEEP TENDER) Historical Provider HEALTH MAINTENANCE Final Result * Albumin Creatinine Ratio, Urine (10/24/2023 10:15 AM CDT) Albumin Ur <12.0 mg/L Comment: Interpretive Data No reference range established. Current interpretive data was last revised 2018. Creatinine Ur 39.4 mg/dL EDYTA Comment: Interpretive Data No reference range established. Current interpretive data was last revised 2018. Albumin Creatinine Ratio, Ur See Comment 1 - 29 EDYTA Comment:Unable to calculate Urine 10/24/2023 10:1 5 AM CDT 10/24/2023 3:48 PM CDT Katherine East AUTISTIC TEACHER LAB URINE ORDERABLES Final Resul t Performing Organization Address [facility] de Phone Number EDISONFILI BOYD [id number] [place] [address] * Thyroid Function [place] (10/22/2023 4:00 PM CDT) TSH 1.97 0.30 - 4.20 mcIUnit/mL Blood 10/22/2023 4:00 PM CDT 10/22/2023 8:26 PM CDT Katherine East AUTISTIC TEACHER LAB BLOOD ORDERABLES Final Resul t Performing Organization Address [facility] Co de Phone Number EDISONFILI BOYD [id number] [place] [address] * Hepatitis C antibody Blood (10/22/2023 4:00 PM CDT) Hep C Ab Nonreactive Nonreactive Comment: Interpretive Data Nonreactive: Antibodies to HCV not detected. Does NOT exclude the possibility of recent exposure to HCV. Equivocal: Equivocal for HCV antibodies. Supplemental molecular testing will be automatically performed to determine infection status in accordance with current CDC screening recommendations. Reactive: Positive for HCV antibodies. This may represent current or past HCV infection. Supplemental molecular testing will be automatically performed to determine current infection status in accordance with current CDC screening recommendations. Interpretive data was last revised on 2019. Blood 10/22/2023 4:00 PM CDT 10/22/2023 8:26 PM CDT us Katherine East NP LAB MICROBIOLOGY - GENERAL ORDER EULOGIO Final Result [facility] [address] [place] [address] * COLONOSCOPY (05/09/2021 11:16 AM STEEP TENDER) Anatomical Region Laterality Modality Other Narrative Procedure Note Jhonathan Florez MD - 05/09/2021 11:[address] [facility] Patient Name: Francie Conti Procedure Date: 05/09/2021 11:16 AM Date of : 1975 Admit Type: Outpatient Age: 45 Gender: Female Attending MD: Jhonathan Florez M.D. Room: [facility] ENDOSCOPY ROOM 1 Note Status: Finalized Patient Profile: This is a 45 year old female. Patient has chronic constipation and change in her bowel habits Procedure: Colonoscopy Indications: This is the patient's first colonoscopy, Change in bowel habits, Chronic idiopathic constipation Referring MD: JAYME Dailey Providers: Jhonathan Florez M.D. Impression: - One 3 mm polyp in the sigmoid colon, removed witha cold biopsy forceps. Resected and retrieved. - The entire examined colon is normal otherwise. Recommendation: - Continue present medications. - Await pathology results. - Repeat colonoscopy in 5 years for screeningpurposes. Medicines: Monitored Anesthesia Care Complications: No immediate complications. Estimated Blood Loss: Estimated blood loss: none. Procedure: Pre-Anesthesia Assessment: - Prior to the procedure, a History and Physicalwas performed, and patient medications and allergieswere reviewed. The patient's tolerance of previous anesthesia was also reviewed. The risks andbenefits of the procedure and the sedation options and risks were discussed with the patient. All questions were answered, and informed consent was obtained. Prior Anticoagulants: The patient has taken no previous anticoagulant or antiplatelet agents. ASA Grade Assessment: II - A patient with mild systemicdisease. After reviewing the risks and benefits, the patient was deemed in satisfactory condition to undergo the procedure. The benefits, risks and alternatives of theprocedure and sedation were discussed and informed consentwas obtained. All questions were answered. Please referto the signed informed consent document in the medical record. The scope was passed under direct vision.The Pediatric Colonoscope PCF-H190L [id number] was introduced through the anus and advanced to the the cecum, identified by appendiceal orifice andileocecal valve. The bowel preparation used was Miralax and bisacodyl tablets via split dose instruction. The quality of the bowel preparation was excellent.Bowel prep was administered using a split dose. Findings: The perianal and digital rectal examinations were normal. The cecum appeared normal. A 3 mm polyp was found in the sigmoid colon. The polyp was sessile.The polyp was removed with a cold biopsy forceps. Resection and retrieval were complete. The colon (entire examined portion) appeared normal otherwise. Noother polyps noted. The rectum appeared normal. Electronically signed by Jhonathan Florez M.D. Jhonathan Florez M.D. 05/09/2021 12:17:30 PM Number of Addenda: 0 Note Initiated On: 05/09/2021 11:16 AM Procedure Code(s): --- Professional --- 07355, Colonoscopy, flexible; with biopsy, single or multiple Diagnosis Code(s): --- Professional --- K63.5, Polyp of colon R19.4, Change in bowel habit K59.04, Chronic idiopathic constipation CPT copyright 2019 [employer]. All rights reserved. The codes documented in this report are preliminary and upon foreign clerk reviewmay be revised to meet current compliance requirements. Recognized by the [employer] for promoting quality in endoscopy Jhonathan Florez MD ENDOSCOPY PROCEDURES Final Result * (ABNORMAL) Screening Mammogram Bilateral W Max (09/22/2019 10:12 AM CDT) Anatomical Region Laterality Modality Breast Bilateral Mammography 09/23/2019 1:11 PM CDT Impressions 09/23/2019 2:00 PM CDT 1. Indeterminate left breast anterior depth lower/inner quadrant grouped calcifications. Spot magnification views are recommended. 2. No evidence of malignancy in the right breast. BI-RADS: 0 - Additional imaging evaluation is necessary. Electronically signed by: Shahram Early M.D. Narrative 09/23/2019 2:00 PM CDT EXAMINATION: SCREENING MAMMOGRAM BILATERAL W MAX ORDERING HEALTHCARE PROVIDER: FRIDA NOGUEIRA HISTORY: Routine screening mammography. COMPARISON: None. This is the baseline examination. TECHNIQUE: CC and MLO views of the bilateral breasts were obtained with digital technique using breast tomosynthesis with C view. Computer aided detection was utilized. FINDINGS: There is scattered fibroglandular tissue There are grouped left breast anterior depth lower/inner quadrant calcifications. No suspicious right breast mass, calcification, or architectural distortion. Frida Nogueira NP IMG MAMMO PROCEDURES Final Re sult from Last 3 Months or Most Recently Relevant to Health Maintenance Insurance [facility] Advance Directives For more information, please contact: [phone] * Full Code (Latest Code Status on File) Date Activated Date Inactivated Comments 05/09/2021 10:33 AM 05/09/2021 4:48 PM * Full Code Date Activated Date Inactivated Comments 05/09/2021 10:00 AM 05/09/2021 10:33 AM * Full Code Date Activated Date Inactivated Comments 02/21/2020 5:29 PM 02/25/2020 8:01 PM * Full Code Date Activated Date Inactivated Comments 02/06/2020 12:18 PM 02/07/2020 9:35 PM * Full Code Date Activated Date Inactivated Comments 01/21/2020 9:57 PM 01/23/2020 12:06 AM Care Teams Water Pumping [employer] Engineer Relationship Specialty Start Date End Date Katherine East NP [address] [facility] [address] [place] [address] PCP - General Family Medicine 10/22/23 Celestine Monroe, PT Physical Therapist Physical Therapy 10/20/17 Cherie Parker, FACILITY PRACTICE SPECIALIST Physical Therapist Physical Therapy 11/03/17 Frida Nogueira, AUTISTIC TEACHER [address] [place] [address] [address] [place] [address] Nurse Practitioner Nurse Practitioner 10/22/23 Halina Treviño MD PhD [id number] [place] [address] Surgeon Surgical Oncology 10/22/23
--- OUTSIDE RECORDS SUMMARY | 2024-08-09 08:33 | XMS_ITS | Data Portability ---
Author Organization [facility] [employer], Main Office Address [address] [place] [address] Assessment No assessment recorded. Plan of Treatment Reminders Order Date Submit Date Provider Last Modified By Organization Details Last Modified Time Details Appointments None recorded. Lab cortisol, am, serum 2022 023 [email or web address] Not available 13:11:15 dexamethas one, serum 2022 023 [email or web address] Not available 13:11:15 lipid panel, serum 2022 023 SULLY Not available 10:11:29 TSH + free T4, serum 2022 023 SULLY Not available 12:58:35 HbA1c (hemoglobi n A1c), blood 2022 023 SULLY Not available 10:11:32 CMP, serum or plasma 2022 023 SULLY Not available 10:11:30 Referral endocrinol ogy referral - used to see gloria crenshaw but leaving area. Eval and treat. [email or web address] - Endocrinology , [address], [place], [address], 3 07:57:10 Procedures None recorded. Surgeries None recorded. Imaging bone density 2022 023 [facility], [address] [facility] [address], [place], [address], 3 13:15:29 Medication Orders Nexletol 180 mg tablet 2022 023 [facility] #69722, [address], [place], [id number], 3 14:42:31 Gvoke HypoPen 2-Pack 1 mg/0.2 mL subcutaneo us auto-injec tor 2022 023 [facility] #04635, [address], [place], [id number], 3 14:41:00 Admelog U-100 Insulin lispro 100 unit/mL subcutaneo us solution 2022 023 [facility] #00941, [address], [place], [id number], 3 14:41:29 sertraline 100 mg tablet 2022 023 [facility] #26151, [address], [place], [id number], 3 11:37:09 alprazolam 0.5 mg tablet 2022 023 [email or web address] [facility] #84500, [address], [place], [id number], 3 14:10:57 bempedoic acid 180 mg tablet 2022 023 [facility] #85051, [address], [place], [id number], 3 13:24:33 Admelog U-100 Insulin lispro 100 unit/mL subcutaneo us solution 2022 023 [facility] #05707, [address], [place], [id number], 13:18:04 Patient TargetsNo targets recorded. Patient Instructions Encounter Date Encounter Id Patient Instructions Last Modified By Organization Details Last Modified Time 11/05/2022 [id number] FU in 6 mo for check up. [email or web address] Not available 11/05/2022 11:41:36 Reason for Referral Endocrinology Referral for T ype 1 diabetes mellitus used to see gloria crenshaw but leaving area. Eval and treat. Referring Physician: Silvia Leon, Family Medicine, Encounter Date: 11/05/2022 Results Created Date Observation Date Name Description Value Unit Range Abnormal Flag Note LastModifiedBy Organization Detail LastModifiedTime 09/21/1909/21/2022 LIPID PANEL , STAND ERVIN cholesterol, total 223 mg/dL <200 high Not Available [employer] [address], [address], 09/21/2022 10:11:29 09/21/19 23 09/21/2022 LIPID PANEL , STAND ERVIN HDL cholesterol 49 mg/dL > or = 50 low Not Available [employer] [address], [address], 09/21/2022 10:11:29 09/21/19 23 09/21/2022 LIPID PANEL , STAND ERVIN triglyceride s 88 mg/dL <150 normal Not Available [employer] [address], [address], 09/21/2022 10:11:29 09/21/19 23 09/21/2022 LIPID PANEL , STAND ERVIN LDL-choleste rol 155 mg/dL _(itzel c) high Refer ence range : <100 Miriam able range <100 mg/dL for prima ry preve ntion ; <70 mg/dL for patie nts with CHD or diabe tic patie nts with > or = 2 CHD risk facto rs. LDL-C is now calcu lated using the [facility] n-Hop kins allyu rafael tompkins, which is a valid ated novel metho d provi cher dat r accur acy than the Fried saira equat ion in the estim ation of LDL-C . Sugey n SS et al. NING. 2013; 310(1 9): 2061- 2068 (http ://ed ucati on.Zola Books kymberlyIpropertyz ankurCloudary. com/f aq/FA Q164) Not Available [facility] [address] [address] [place], [address], 09/21/2022 10:11:29 09/21/19 23 09/21/2022 LIPID PANEL , STAND ERVIN chol/HDLC ratio 4.6 (calc ) <5.0 normal Not Available [facility] [address] , [place], [address], 09/21/2022 10:11:29 09/21/19 23 09/21/2022 LIPID PANEL , STAND ERVIN non HDL cholesterol 174 mg/dL _(itzel c) <130 high For patie nts with diabe linda plus 1 major ASCVD risk facto r, treat ing to a non-H DL-C goal of <100 mg/dL (LDL- C of <70 mg/dL ) is consi marylu anaya n. Not Available [employer] [address] [address] [address] , [place], [address], 09/21/2022 10:11:29 09/21/1909/21/2022 COMPR EHENS KB METAB OLIC PANEL glucose 150 mg/dL 65-99 high Fasti ng refer ence inter sven For someo ne witho ut known diabe linda, a gluco se value >125 mg/dL indic ates that they may have diabe linda and this shoul d be confi rmed with a follo w-up test. Not Available [employer] [facility] [address] [address] , [place], [address], 09/21/2022 10:11:30 09/21/19 23 09/21/2022 COMPR EHENS KB METAB OLIC PANEL urea nitrogen (BUN) 11 mg/dL 7-25 normal Not Available [facility] [place] [address], [place], [address], 09/21/2022 10:11:30 09/21/19 23 09/21/2022 COMPR EHENS KB METAB OLIC PANEL creatinine 0.66 mg/dL 0.50-0 .99 normal Not Available [address], [address], 09/21/2022 10:11:30 09/21/19 23 09/21/2022 COMPR EHENS KB METAB OLIC PANEL eGFR 109 mL/mi n/1.7 3m2 > or = 60 normal The eGFR is based on the CKD-E PI 2020 equat ion. To calcu late the new eGFR from a previ ous Creat inine or Cysta tin C resul t, go to https ://matthew bond.jazlyn blevins.o naida/anai jean s/ kdoqi /gfr% 5Fcal culat or Not Available [address] [address] [place], [address], 09/21/2022 10:11:30 09/21/19 23 09/21/2022 COMPR EHENS KB METAB OLIC PANEL BUN/creatini ne ratio NOT APPLIC ABLE (calc ) 6-22 Not Available [address], [address], 09/21/2022 10:11:30 09/21/19 23 09/21/2022 COMPR EHENS KB METAB OLIC PANEL sodium 137 mmol/ L 135-14 6 normal Not Available [address], [address], 09/21/2022 10:11:30 09/21/19 23 09/21/2022 COMPR EHENS KB METAB OLIC PANEL potassium 4.6 mmol/ L 3.5-5. 3 normal Not Available [address], [address], 09/21/2022 10:11:30 09/21/19 23 09/21/2022 COMPR EHENS KB METAB OLIC PANEL chloride 104 mmol/ L 98-110 normal Not Available [address], [address], 09/21/2022 10:11:30 09/21/19 23 09/21/2022 COMPR EHENS KB METAB OLIC PANEL carbon dioxide 30 mmol/ L 20-32 normal Not Available [address], [address], 09/21/2022 10:11:30 09/21/1909/21/2022 COMPR EHENS KB METAB OLIC PANEL calcium 9.0 mg/dL 8.6-10 .2 normal Not Available [address], [address], 09/21/2022 10:11:30 09/21/19 23 09/21/2022 COMPR EHENS KB METAB OLIC PANEL protein, total 6.7 g/dL 6.1-8. 1 normal Not Available [address], [address], 09/21/2022 10:11:30 09/21/19 23 09/21/2022 COMPR EHENS KB METAB OLIC PANEL albumin 4.0 g/dL 3.6-5. 1 normal Not Available [address], [address], 09/21/2022 10:11:30 09/21/19 23 09/21/2022 COMPR EHENS KB METAB OLIC PANEL globulin 2.7 g/dL_ (calc ) 1.9-3. 7 normal Not Available [address], [address], 09/21/2022 10:11:30 09/21/19 23 09/21/2022 COMPR EHENS KB METAB OLIC PANEL albumin/glob ulin ratio 1.5 (calc ) 1.0-2. 5 normal Not Available [address], [address], 09/21/2022 10:11:30 09/21/1909/21/2022 COMPR EHENS KB METAB OLIC PANEL bilirubin, total 0.4 mg/dL 0.2-1. 2 normal Not Available [address], [address], 09/21/2022 10:11:30 09/21/19 23 09/21/2022 COMPR EHENS KB METAB OLIC PANEL alkaline phosphatase 58 U/L 31-125 normal Not Available [facility] [employer] [address], [address], 09/21/2022 10:11:30 09/21/19 23 09/21/2022 COMPR EHENS KB METAB OLIC PANEL AST 24 U/L 10-35 normal Not Available [address], [address], 09/21/2022 10:11:30 09/21/1909/21/2022 COMPR EHENS KB METAB OLIC PANEL ALT 18 U/L 6-29 normal Not Available [address], [address], 09/21/2022 10:11:30 09/21/1909/21/2022 T4, FREE T4, free 0.9 NG/dL 0.8-1. 8 normal Not Available [facility] [employer] [address], [address], 09/21/2022 10:11:31 09/21/1909/21/2022 TSH TSH 1.38 mIU/L normal Refer ence Range > or = 20 Years 0.40- 4.50 Pregn katerina Range s First trime ster 0.26- 2.66 Secon d trime ster 0.55- 2.73 Third trime ster 0.43- 2.91 Not Available [facility] [place] [address] [place], [address], 09/21/2022 10:11:31 09/21/1909/21/2022 HEMOG LOBIN A1C hemoglobin A1C 7.8 %_of_ total _HGB <5.7 high For someo ne witho ut known diabe linda, a hemog lobin A1c value of 6.5% or great er indic ates that they may have diabe linda and this shoul d be confi rmed with a follo w-up test. For someo ne with known diabe linda, a value <7% indic ates that their diabe linda is well contr olled and a value great er than or equal to 7% indic ates subop timal contr ol. A1c targe ts shoul d be indiv idual ized based on durat ion of diabe linda, age, comor bid condi tions , and other consi derat ions. Curre ntly, no conse nsus exist s concepción kwon use of hemog lobin A1c for diagn osis of diabe linda for child edgar. Not Available [employer] [facility] [address] [address] [place], [address], 09/21/2022 10:11:32 12/21/1912/21/2022 LIPID PANEL , STAND ERVIN cholesterol, total 186 mg/dL <200 normal Not Available [employer] [facility] [address] [address] [place], [address], 12/21/2022 07:04:52 12/21/1912/21/2022 LIPID PANEL , STAND ERVIN HDL cholesterol 51 mg/dL > or = 50 normal Not Available [employer] [facility] [address] [address] [place], [address], 12/21/2022 07:04:52 12/21/1912/21/2022 LIPID PANEL , STAND ERVIN triglyceride s 115 mg/dL <150 normal Not Available [facility] [address] [address] [place], [address], 12/21/2022 07:04:52 12/21/19 23 12/21/2022 LIPID PANEL , STAND ERVIN LDL-choleste rol 112 mg/dL _(itzel c) high Refer ence range : <100 Miriam able range <100 mg/dL for prima ry preve ntion ; <70 mg/dL for patie nts with CHD or diabe tic patie nts with > or = 2 CHD risk facto rs. LDL-C is now calcu lated using the Sugey n-Hop kins calcu rafael n, which is a valid ated novel metho d provi ding dat r accur acy than the Fried saira equat ion in the estim ation of LDL-C . Sugey tompkins SS et al. NING. 2013; 310(1 5): 2061- 2068 (http ://ed ucati on.PinBridge. Nusirt/f aq/FA Q164) Not Available [facility] [address] [place], [address], 12/21/2022 07:04:52 12/21/1912/21/2022 LIPID PANEL , STAND ERVIN chol/HDLC ratio 3.6 (calc ) <5.0 normal Not Available [facility] [address] [place], [address], 12/21/2022 07:04:52 12/21/19 23 12/21/2022 LIPID PANEL , STAND ERVIN non HDL cholesterol 135 mg/dL _(itzel c) <130 high For patie nts with diabe linda plus 1 major ASCVD risk facto r, treat ing to a non-H DL-C goal of <100 mg/dL (LDL- C of <70 mg/dL ) is consi anishad a thermiquel peanamaria c optio n. Not Available [facility] [address] [place], [address], 12/21/2022 07:04:52 12/21/1912/21/2022 COMPR EHENS KB METAB OLIC PANEL glucose 89 mg/dL 65-99 normal Fasti ng refer ence inter sven Not Available [address] [address] [place], [address], 12/21/2022 07:04:52 12/21/1912/21/2022 COMPR EHENS KB METAB OLIC PANEL urea nitrogen (BUN) 12 mg/dL 7-25 normal Not Available [address], [address], 12/21/2022 07:04:52 12/21/1912/21/2022 COMPR EHENS KB METAB OLIC PANEL creatinine 0.76 mg/dL 0.50-0 .99 normal Not Available [facility] [address], [address], 12/21/2022 07:04:52 12/21/1912/21/2022 COMPR EHENS KB METAB OLIC PANEL eGFR 98 mL/mi n/1.7 3m2 > or = 60 normal Not Available [address] [address] [place], [address], 12/21/2022 07:04:52 12/21/1912/21/2022 COMPR EHENS KB METAB OLIC PANEL BUN/creatini ne ratio SEE NOTE: (calc ) 6-22 Not Repor rickey: BUN and Creat inine are withi n refer ence range . Not Available [address], [address], 12/21/2022 07:04:52 12/21/1912/21/2022 COMPR EHENS KB METAB OLIC PANEL sodium 139 mmol/ L 135-14 6 normal Not Available [address] [address] [place], [address], 12/21/2022 07:04:52 12/21/1912/21/2022 COMPR EHENS KB METAB OLIC PANEL potassium 4.3 mmol/ L 3.5-5. 3 normal Not Available [address], [address], 12/21/2022 07:04:52 12/21/1912/21/2022 COMPR EHENS KB METAB OLIC PANEL chloride 105 mmol/ L 98-110 normal Not Available [address], [address], 12/21/2022 07:04:52 12/21/1912/21/2022 COMPR EHENS KB METAB OLIC PANEL carbon dioxide 27 mmol/ L 20-32 normal Not Available [address], [address], 12/21/2022 07:04:52 12/21/1912/21/2022 COMPR EHENS KB METAB OLIC PANEL calcium 9.3 mg/dL 8.6-10 .2 normal Not Available [address], [address], 12/21/2022 07:04:52 12/21/1912/21/2022 COMPR EHENS KB METAB OLIC PANEL protein, total 6.9 g/dL 6.1-8. 1 normal Not Available [address], [address], 12/21/2022 07:04:52 12/21/1912/21/2022 COMPR EHENS KB METAB OLIC PANEL albumin 4.0 g/dL 3.6-5. 1 normal Not Available [address], [address], 12/21/2022 07:04:52 12/21/1912/21/2022 COMPR EHENS KB METAB OLIC PANEL globulin 2.9 g/dL_ (calc ) 1.9-3. 7 normal Not Available [address], [address], 12/21/2022 07:04:52 12/21/1912/21/2022 COMPR EHENS KB METAB OLIC PANEL albumin/glob ulin ratio 1.4 (calc ) 1.0-2. 5 normal Not Available [address], [address], 12/21/2022 07:04:52 12/21/1912/21/2022 COMPR EHENS KB METAB OLIC PANEL bilirubin, total 0.3 mg/dL 0.2-1. 2 normal Not Available [address], [address], 12/21/2022 07:04:52 12/21/1912/21/2022 COMPR EHENS KB METAB OLIC PANEL alkaline phosphatase 55 U/L 31-125 normal Not Available [address], [address], 12/21/2022 07:04:52 12/21/1912/21/2022 COMPR EHENS KB METAB OLIC PANEL AST 35 U/L 10-35 normal Not Available [address], [address], 12/21/2022 07:04:52 12/21/1912/21/2022 COMPR EHENS KB METAB OLIC PANEL ALT 27 U/L 6-29 normal Not Available [address], [address], 12/21/2022 07:04:52 12/21/1912/21/2022 TSH+F REE T4 TSH 2.11 mIU/L normal Refer ence Range > or = 20 Years 0.40- 4.50 Pregn katerina Range s First trime ster 0.26- 2.66 Secon d trime ster 0.55- 2.73 Third trime ster 0.43- 2.91 Not Available [address], [address], 12/21/2022 07:04:53 12/21/1912/21/2022 TSH+F REE T4 T4, free 0.8 NG/dL 0.8-1. 8 normal Not Available [facility] [address] [place], [address], 12/21/2022 07:04:53 12/21/19 23 12/21/2022 HEMOG LOBIN A1C hemoglobin A1C 8.0 %_of_ total _HGB <5.7 high For someo ne witho ut known diabe linda, a hemog lobin A1c value of 6.5% or great er indic ates that they may have diabe linda and this shoul d be confi rmed with a follo w-up test. For someo ne with known diabe linda, a value <7% indic ates that their diabe linda is well contr olled and a value great er than or equal to 7% indic ates subop timal contr ol. A1c targe ts shoul d be indiv idual ized based on durat ion of diabe linda, age, comor bid condi tions , and other consi derat ions. Curre ntly, no conse nsus exist s regar cher use of hemog lobin A1c for diagn osis of diabe linda for child edgar. Not Available [facility] [address] , [place], [address], 12/21/2022 07:04:53 11/30/19 22 XR, shoul master No observ ation record ed. [id number] [address] [facility] [address], [place], [address], 05/15/2022 18:37:40 11/30/19 22 XR, cervi itzel spine No observ ation record ed. [id number] Not Available 05/15/2022 18:37:40 12/21/19 23 12/20/2022 MAMMO , scree yee, digit al, bilat eral No observ ation record ed. [email or web address] [facility] [address] [facility] [address], [place], [address], 12/24/2022 07:40:41 Result Notes None recorded. Problems Name Problem SNOMED Code Status Onset Date Resolution Date Notes Provider Name and Address Organization Details Recorded Time Pain of left shoulder joint 91982192253 308600 Active 2021 Not Available [facility] 3 18:36:33 Pain of left elbow joint 29916133613 176220 Active 2021 Not Available [facility] 3 18:36:33 Malignant tumor of breast 097785777 Active 2021 diagnosed 11/2019, mastectom y 01/2020 Not Available [facility] 3 18:36:33 Depressiv e disorder 41134060 Active 2021 Not Available [facility] 3 18:36:33 Dyslipide brennon 016711874 Active 2021 Not Available [facility] 3 18:36:33 Uncontrol led type 1 diabetes mellitus 853049154 Active 2021 Not Available [facility] 3 18:36:34 Type 1 diabetes mellitus 47389638 Active 2021 Not Available [facility] 3 18:36:34 Anxiety 83489701 Active 2021 Not Available [facility] 3 18:36:34 Hyperlipi demia 65483551 Active 2021 Not Available [facility] 3 18:36:34 Neck pain 60219819 Active 2021 Not Available [facility] 3 18:36:34 Paresthes ia of upper limb 20642995 Active 2021 Not Available [facility] 3 18:36:34 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 657424627 Active 2022 Gloria Crenshaw MD [address] [facility], [place], [address] , [facility] [address] [employer] [facility] 3 13:07:37 Fracture of foot 07529646 Active 2022 Gloria Crenshaw MD [address], [place], [address] , [facility] [address] [employer] [facility] 3 13:08:25 Conjlorri otooles 2654673 Active 2022 Silvia Leon NP [address] [facility], [facility] [address], [place], [address] , [facility] [employer] [facility] 3 09:40:26 Muscle strain 66104059 Active 2022 Silvia Leon NP [address] [facility], [facility] [address], [place], [address] , [facility] [employer] [facility] 3 11:56:12 Problem Notes Documentation Provider Name and Address Organization Details Recorded Time Endocrinology Consult Note : [facility] [employer] [address], [facility] [address]CKDOH, Lisa A (id #[id number], : 1975) Documents sent via fax will include the following message: This fax may contain sensitive and confidential personal health information that is being sent for the sole use of the intended recipient. Unintended recipients are directed to securely destroy any materials received. You are hereby notified that the unauthorized disclosure or other unlawful use of this fax or any personal health information is prohibited. To the extent patient information contained in this fax is subject to 42 CFR Part 2, this regulation prohibits unauthorized disclosure of these records. If you received this fax in error, please visit [email or web address] to notify the sender and confirm that the information will be destroyed. If you do not have internet access, please call to notify the sender and confirm that the information will be destroyed. Thank you for your attention and cooperation. [ID:[id number]][employer] [address] [place] [address] , Date: 12/24/2022RE: Francie Conti, : 1975, PT ID #[id number] [facility], I would like to thank you for referring Francie Conti to our practice for consultation and evaluation of FU ON LABS , on 12/24/2022. I have enclosed a copy of the office evaluation for your records. Once again, thank you for allowing me to participate in the care of this patient. Sincerely, Electronically Signed by: GLORIA CRENSHAW MD Encounter Reason/Date FU ON LABS 12/24/2022 - 01:15PM - [facility] Kaylyn Mon Problems:Reviewed Problems Malignant tumor of breast - Onset: 07/09/2021 - diagnosed 11/2019, mastectomy 01/2020 Type 1 diabetes mellitus - Onset: 07/09/2021 Type 1 diabetes mellitus uncontrolled - Onset: 11/05/2021 Dyslipidemia - Onset: 11/05/2021 Hyperlipidemia - Onset: 07/09/2021 Anxiety - Onset: 07/09/2021 Depressive disorder - Onset: 07/09/2021 Conjunctivitis - Onset: 09/10/2022 Neck pain - Onset: 07/09/2021 Paresthesia of upper limb - Onset: 07/09/2021 Fracture of foot - Onset: 07/02/2022, Right Muscle strain - Onset: 11/15/2022 Pain of left shoulder joint - Onset: 07/09/2021 Pain of left elbow joint - Onset: 11/29/2021 Latent autoimmune diabetes mellitus in adult - Onset: 07/02/2022 Allergies: Reviewed Allergies NKDA Medications: Reviewed Medications NameDate Source Admelog U-100 Insulin lispro 100 unit/mL subcutaneous solutionINJECT UP TO 80 UNITS EVERY DAY VIA INSULIN PUMP.12/24/22 prescribed Gloria Crenshaw MD BD Insulin Syringe Ultra-Fine 0.5 mL 31 gauge x 07/1610 filled MIGRATION.[id number] buPROPion HCL XL 300 mg 24 hr tablet, extended releaseTAKE 1 TABLET BY MOUTH EVERY DAY11/30/22 filled surescripts Dexcom G6 Sensor mdjcoz03/07/23 filled surescripts Dexcom G6 Transmitter /10/23 filled surescripts Gvoke HypoPen 2-Pack 1 mg/0.2 mL subcutaneous auto-injectorInject 1 mg as needed by subcutaneous route as needed for 1 day.12/24/22 prescribed Gloria Crenshaw MD Nexletol 180 mg tabletTAKE 1 TABLET BY MOUTH EVERY DAY IN THE KFGHCOC48/10/23 prescribed Gloria Crenshaw MD OneTouch Ultra Test stripsUSE TO TEST 4 TIMES A DAY07/09/21 filled MIGRATION.[id number] sertraline 100 mg tabletTake 1 tablet(s) every day by oral route.11/05/22 filled surescripts Using CBD for joint pain. Atorvastatin and rosuvastatin gives leg cramps. Family History: Father - Alcoholism - Type 2 diabetes mellitus Social History:Social History not reviewed (last reviewed 11/05/2022) Home and EnvironmentWhere do you live?: Single-level houseDo you have smoke and carbon monoxide detectors in your home?: YesAre you passively exposed to smoke?: NoDo you use sunscreen routinely?: YesLifestyleDo you use your seat belt or car seat routinely?: YesSubstance UseDo you or have you ever smoked tobacco?: Current every day smokerHow much tobacco do you smoke?: 1 pack per weekAt what age did you start smoking tobacco?: 17Do you or have you ever used any other forms of tobacco or nicotine?: NoWhat is your level of alcohol consumption?: None (Notes: past history of alcholism, sober since 2014)Do you use any illicit or recreational drugs?: YesWhich illicit or recreational drugs have you used?: weed (Notes: daily)Have you used IV drugs?: NoHow many years have you used illicit or recreational drugs?: 3What is your level of caffeine consumption?: OccasionalEducation and OccupationWhat is the highest grade or level of school you have completed or the highest degree you have received?: Some college, no degreeAre you currently employed?: YesPublic Health and TravelHave you recently traveled abroad?: NoIn the 14 days before symptom onset, have you had close contact with a laboratory-confirmed COVID-19 while that case was ill?: NoIn the 14 days before symptom onset, have you had close contact with a person who is under investigation for COVID-19 while that person was ill?: NoAdvance DirectiveWhat is your code status?: Full CodeDo you have a medical power of assistant district attorney?: NoIs blood transfusion acceptable in an emergency?: YesDiet and ExerciseWhat type of diet are you following?: RegularDo you have any dietary restrictions?: NoWhat is your exercise level?: ModerateHow many days of moderate to strenuous exercise, like a brisk walk, did you do in the last 7 days?: 2On those days that you engage in moderate to strenuous exercise, how many minutes, on average, do you exercise?: (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 Additional HistoryNone recordedHistory of Present Illness:47 yo female comes in for follow up in management of uncontrolled ADONAY (A1C of 8%), dyslipidemia. last seen in June at that time wehad patient modify pump settings as follows:12 am to 7 am at 1.45 u/hr with carb ratio of 1:87 am to 3 pm at 1 u/hr with carb ratio of 1:8add 3 pm to 9 pm at 1.1 u/hrincreased 9 pm to 12 am 1.31u/hr with carb ratio of 1:8 target 100 mg/dL we trialed bempedoic acid as LDL was high on statins She feels she is getting perimenopausal changes. Her cycles are more irregular and having more sweats/mood lability. She has the T slim/control IQ. She hasn't started control IQ as she doesn't know how to change. Sugars over 200 mg/dL postmeals.under 120 mg/dL fasting. labs from 12/20/22:a1c 8%TSH of 2.11 uIU/mlFT4 of 0.8 ng/dL186/115/51/112glucose 89 mg/dLCr normalLFT normalReview of Systems:ROS as noted in the HPIPhysical ExamConstitutional:General Appearance: healthy-appearing, well-nourished, well-developed, not anxious/nervous, and no sweating. Level of Distress: no acute distress. Eyes:Lids and Conjunctivae: no discharge, pallor, lid lag, or periorbital edema and non-injected. Neck:Neck: supple, trachea midline, no masses, and full range of motion. Thyroid: no enlargement or nodules and non-tender. Neck vessels: no carotid bruits or thyroid bruits. Lymph Nodes: no anterior cervical LAD, posterior cervical LAD, submandibular LAD, submental LAD, preauricular LAD, or supraclavicular LAD. Cardiovascular:Apical Impulse: not displaced. Heart Auscultation: normal S1 and S2; no murmurs, rubs, or gallops; and regular rate and rhythm. Lungs:Auscultation: no wheezing, rales/crackles, or rhonchi and breath sounds normal, good air movement, and clear to auscultation. Psychiatric:Mental Status: normal mood and affect, no diffuse anxiety or paranoid ideations, and active and alert.Procedure DocumentationNone recordedAssessment/Plan1. Latent autoimmune diabetes mellitus in adult-a1c of 8%- struggling with hyperglycemia in the early to late evening due to snacking. continue pump settings as follows:12 am to 7 am at 1.45 u/hr with carb ratio of 1:87 am to 3 pm at 1 u/hr with carb ratio of 1:83 pm to 9 pm at 1.1 u/hr9 pm to 12 am at 1.3 u/hr with carb ratio of 1:8 target 100 mg/dL Educated patient on how to switch her mode to control IQ She has follow up with new healthcare specialist in March per PCP referral. Refill dexcom as she is compliant with use and has no issues with accuracy. Send for Gvoke for hypoglycemia rescue if needed.E13.9: Other specified diabetes mellitus without complications DEXCOM G6 SENSOR DEVICE - change sensor every 10 days x 90 days Qty: 9 Units Refills: 8 Supplier: [facility] #[id number] DEXCOM G6 TRANSMITTER DEVICE - change transmitter every 90 days Qty: 1 Unit Refills: 3 Supplier: [facility] #[id number] Gvoke HypoPen 2-Pack 1 mg/0.2 mL subcutaneous auto-injector - Inject 1 mg as needed by subcutaneous route as needed for 1 day. Qty: (2) 0.2 mL syringe Refills: 2 Pharmacy: [facility] #[id number] Admelog U-100 Insulin lispro 100 unit/mL subcutaneous solution - INJECT UP TO 80 UNITS EVERY DAY VIA INSULIN PUMP. Qty: (4) 10 mL vial Refills: 3 GAYATHRI: Y Pharmacy: [facility] #[id number] 2. Dyslipidemia-LDL down from 137 mg/dL to 112 mg /dL-continue bempedoic acid as she has significant muscle aches/ cramps on statins. Spent up to 25 minutes preparing to see the patient (eg, review of tests), obtaining and/or reviewing separately obtained history, performing a medically appropriate examination and evaluation, counseling and educating the patient, ordering medications, tests, along with documenting clinical information in the electronic health record, independently interpreting results and communicating results to the patient. Patient can be followed by PCP - she/he is aware of my resignation and last day of December 27. If needed his/her PCP can refer patient to another healthcare specialist in the area. All questions /concerns answered and refills necessary at visit today.E78.5: Hyperlipidemia, unspecified Nexletol 180 mg tablet - TAKE 1 TABLET BY MOUTH EVERY DAY IN THE MORNING Qty: (90) tablet Refills: 4 Pharmacy: [facility] #[id number] Return to Office Silvia Leon NP for Follow Up 30 at [facility] on 05/08/2023 at 10:00 AM Silvia Leon NP [address] [place] [address], [id number], [facility] 12/24/2022 19:41:38 Procedures Surgical History Date Name Laterality Status Provider Name and Address Organization Details Recorded Time 10/16/19 22 Date of Last Pap Smear completed Silvia Smith RN [facility] 11/05/2022 11:20:43 03/17/19 21 Date of Last Colonoscopy completed Not Available [facility] 05/15/2022 18:35:39 excision of bilateral breasts completed Not Available [facility] 05/15/2022 18:35:39 Imaging Results None recorded. Procedure Notes None recorded. Medical Equipment None Reported. Allergies No known drug allergies Medications Name Sig Start Date Stop Date Status Note LastModified by Organization Details LastModified Time cyclobenzap rine 10 mg tablet TAKE 1 TABLET BY MOUTH THREE TIMES A DAY NEEDED FOR MUSCLE SPASMS 07/09 completed Not Available Not Available Not Available bupropion HCl SR 150 mg tablet,12 hr sustained-r elease 07/09 completed Not Available Not Available Not Available citalopram 40 mg tablet TAKE 1 TABLET BY MOUTH EVERY DAY 07/09 completed Not Available Not Available Not Available trazodone 50 mg tablet TAKE 1 TABLET BY MOUTH EVERY DAY AT BEDTIME 07/09 completed Not Available Not Available Not Available atorvastati n 10 mg tablet 1 tab po nightly 11/05 completed Not Available Not Available Not Available hydrocodone 5 mg-acetamin ophen 325 mg tablet 07/09 completed Not Available Not Available Not Available meloxicam 15 mg tablet 1 tab po daily 02/26 completed Not Available Not Available Not Available sertraline 100 mg tablet Take 1 tablet every day by oral route. active Not Available Not Available No t Available alprazolam 0.5 mg tablet Take 1 tablet every day by oral route. active Not Available Not Available No t Available lorazepam 0.5 mg tablet 11/05 completed Not Available Not Available Not Available [employer] Ultra Test strips USE TO TEST 4 TIMES A DAY active Not Available Not Available No t Available Kenalog 10 mg/mL suspension for injection In office injection administe red by the provider 02/26 completed [facility]: [phone] Not Available Not Available Not Available erythromyci n 5 mg/gram (0.5 %) eye ointment APPLY 1/4 INCH RIBBON TO RIGHT EYE 2 HOURS FOR SEVERAL DAYS. 07/02 completed Not Available Not Available Not Available naproxen 500 mg tablet,edd yed release 07/09 completed Not Available Not Available Not Available polymyxin B sulfate 10,000 unit-trimet hoprim 1 mg/mL eye drops INSTILL 1 DROP INTO AFFECTED EYE(S) BY OPHTHALMI C ROUTE EVERY 6 HOURS for 5-7 days 11/05 completed Not Available Not Available Not Available Humulin N NPH U-100 Insulin (isophane susp) 100 unit/mL subcutaneou s 07/09 completed Not Available Not Available Not Available hydroxyzine HCl 25 mg tablet 07/02 completed Not Available Not Available Not Available methylpredn isolone 4 mg tablets in a dose pack 07/02 completed Not Available Not Available Not Available sertraline 50 mg tablet TAKE 1 TABLET BY MOUTH EVERY DAY active Not Available Not Available No t Available doxycycline hyclate 100 mg tablet TAKE 1 TABLET BY MOUTH TWICE A DAY FOR 7 DAYS 07/09 completed Not Available Not Available Not Available dicyclomine 10 mg capsule TAKE 1-2 PILLS BY MOUTH UP TO 4 TIMES DAILY NEEDED FOR ABDOMINAL CRAMPING 07/09 completed Not Available Not Available Not Available metoclopram livia 10 mg tablet 07/09 completed Not Available Not Available Not Available cyclobenzap rine 5 mg tablet Take 1 tablet 3 times a day by oral route as needed. 12/24 completed Not Available Not Available Not Available rosuvastati n 5 mg tablet TAKE 1 TABLET EVERY OTHER DAY BY ORAL ROUTE FOR 30 DAYS. 02/26 completed Not Available Not Available Not Available rosuvastati n 10 mg tablet 07/09 completed Not Available Not Available Not Available bupropion HCl XL 300 mg 24 hr tablet, extended release TAKE 1 TABLET BY MOUTH EVERY DAY active Not Available Not Available No t Available bupropion HCl XL 150 mg 24 hr tablet, extended release TAKE 1 TABLET BY MOUTH EVERY DAY 11/05 completed Not Available Not Available Not Available ropivacaine (PF) 5 mg/mL (0.5 %) injection solution Take 20 mg by injection route. 07/02 completed Not Available Not Available Not Available BD Insulin Syringe Ultra-Fine 0.5 mL 31 gauge x 07/30 active Not Available Not Available Not Available Admelog U-100 Insulin lispro 100 unit/mL subcutaneou s solution active Not Available Not Available N ot Available Dexcom G6 Sensor device active Not Available Not Available Not Available Dexcom G6 Transmitter device active Not Available Not Available Not Available Nexletol 180 mg tablet TAKE 1 TABLET BY MOUTH EVERY DAY IN THE MORNING 2022 active Not Available Not Available Not Avai lable Gvoke HypoPen 2-Pack 1 mg/0.2 mL subcutaneou s auto-inject or Inject 1 mg as needed by subcutane ous route as needed for 1 day. active Not Available Not Available No t Available Zegalogue 0.6 mg/0.6 mL subcutaneou s auto-inject or INJECT 0.6 MG NEEDED BY SUBCUTANE OUS ROUTE FOR 30 DAYS. 12/24 completed Not Available Not Available Not Available Vitals Date Recorded Body height Body mass index (BMI) Body weight Respiratory rate Body temperature Heart rate Systolic And Diastolic Provider Name and Address Organization Details Last Updated DateTime 3 160.02 cm 28.3 kg/m2 94805.0 6 g 18 /min 97.8 [degF] 94 /min 128/85 mm[Hg] EUGENIO Obrien [facility] [employer] [facility] 3 12:49:18 Date Recorded Body height Body mass index (BMI) Body weight Body temperature Heart rate Respiratory rate Oxygen saturation Oxygen saturation in Arterial blood by Pulse oximetry Systolic And Diastolic Provider Name and Address Organization Details Last Updated DateTime 3 160.02 cm 28.2 kg/m2 88311.6 4 g 96.9 [degF] 99 /min 16 /min 99 % 99 % 112/76 mm[Hg] Silvia Smith RN [facility] [employer] [facility] 3 11:17:47 Date Recorded Body mass index (BMI) Body height Body weight Provider Name and Address Organization Details Last Updated DateTime 11/29/2021 27.5 kg/m2 160.02 cm 16579.82 g Not Available [facility] 05/15/2022 18:36:21 Date Recorded Body height Body mass index (BMI) Body weight Body temperature Respiratory rate Heart rate Systolic And Diastolic Provider Name and Address Organization Details Last Updated DateTime 3 160.02 cm 28.9 kg/m2 73042.5 6 g 98.4 [degF] 16 /min 100 /min 117/86 mm[Hg] Vandana Grimes RN [facility] [employer] [facility] 3 14:13:10 Date Recorded Body mass index (BMI) Body height Oxygen saturation Oxygen saturation in Arterial blood by Pulse oximetry Heart rate Respiratory rate Body temperature Body weight Systolic And Diastolic Provider Name and Address Organization Details Last Updated DateTime 2 27.7 kg/m2 160.02 cm 98 % 98 % 100 /min 16 /min 98.4 [degF] 58051.1 1 g 120/74 mm[Hg] Not Available [facility] 3 18:36:20 Social History Question Answer Notes LastModified by Organizat ion Details LastModified Time Tobacco Smoking Status Current Every Day Smoker Silvia Smith RN [facility], [facility] [employer] [facility] 11/05/2022 11:12:58 Do You Have An Advance Directive? No [id number] Information not available 05/15/2022 Is Blood Transfusion Acceptable In An Emergency? Yes Information not available 11/05/2022 What Is Your Level Of Caffeine Consumption? Occasional [id number] Information not available 05/15/2022 What Is Your Code Status? Full Code Information not available 11/05/2022 In The 14 Days Before Symptom Onset, Have You Had Close Contact With A Laboratory-confi rmed COVID-19 While That Case Was Ill? No Information not available 11/05/2022 In The 14 Days Before Symptom Onset, Have You Had Close Contact With A Person Who Is Under Investigation For COVID-19 While That Person Was Ill? No Information not available 11/05/2022 What Type Of Diet Are You Following? REGULAR [id number] Information not available 05/15/2022 Which Illicit Or Recreational Drugs Have You Used? Sublette Daily Information not available 11/05/2022 What Is The Highest Grade Or Level Of School You Have Completed Or The Highest Degree You Have Received? [id number] Information not available 11/05/2022 How Many Days Of Moderate To Strenuous Exercise, Like A Brisk Walk, Did You Do In The Last 7 Days? 2 Information not available 11/05/2022 Have There Been Any Changes To Your Family Or Social Situation? No Information not available 11/05/2022 How Many Years Have You Used Illicit Or Recreational Drugs? 3 Information not available 11/05/2022 Do You Use Insect Repellent Routinely? Yes Information not available 11/05/2022 Where Do You Live? SingleLevelHouse Information not available 11/05/2022 Do You Have A Medical Power Of Nozzle Worker? No Information not available 11/05/2022 Do You Have Any Pets? Yes Information not available 11/05/2022 What Is Your Relationship Status? Domestic Partner [id number] Information not available 05/15/2022 Do You Use Your Seat Belt Or Car Seat Routinely? Yes Information not available 11/05/2022 Do You Have Smoke And Carbon Monoxide Detectors In Your Home? Yes Information not available 11/05/2022 At What Age Did You Start Smoking Tobacco? 17 Information not available 11/05/2022 Are You Passively Exposed To Smoke? No Information not available 11/05/2022 Are There Any Smokers In Your House? No Information not available 11/05/2022 How Much Tobacco Do You Smoke? 1 PPW Information not available 11/05/2022 Do You Participate In Social Media? Yes Information not available 11/05/2022 Do You Use Sunscreen Routinely? Yes Information not available 11/05/2022 Have You Recently Traveled Abroad? No Information not available 11/05/2022 Have You Used IV Drugs? No Information not available 11/05/2022 Do You Have Any Dietary Restrictions? No Information not available 11/05/2022 Sex: Unknown Functional Status Question Answer Note LastModified by [email or web address] ion Details LastModified Time Do you use any illicit or recreational drugs? Yes Information not available 11/05/2022 Do you or have you ever used any other forms of tobacco or nicotine? No Information not available 11/05/2022 What is your level of alcohol consumption? None past history of alcholism, sober since 2014 [id number] Information not available 05/15/2022 Are you currently employed? Yes Information not available 11/05/2022 What is your exercise level? Moderate [id number] Information not available 05/15/2022 Mental Status Question Answer Note LastModified by Organization D etails LastModified Time Do you feel stressed (tense, restless, nervous, or anxious, or unable to sleep at night)? [id number] Information not available 11/05/2022 Family History Relationship Description Onset Age of this Age Resolved Age Notes LastModified by Organization Details LastModified Time Father Alcoholism [id number] Not available 05/15/2022 18:35:41 Father Type 2 diabetes mellitus [id number] Not available 05/15/2022 18:35:41 Medical History Condition Response BLINDNESS N RHEUMATIC FEVER N BLADDER PROBLEMS N KIDNEY STONES Y MRSA N OTHER # 1 N POLIO N LUNG DISEASE/DISORDER N HISTORY OF DRUG ABUSE N RADIATION / CHEMOTHERAPY N COPD N Other # 2 N BLOOD DISEASES N SURGERY N EAR OR HEARING PROBLEMS N MUMPS N SHINGLES N BOWEL PROBLEMS Y DEPRESSION (INCLUDING POST ) Y FEMALE PROBLEMS / INFECTIONS N STROKE/TIA N THYROID DISEASE N ULCERS N BENIGN PROSTATIC HYPERPLASIA N MEASLES N CERVICALGIA N TB SKIN TEST N HYPOTENSION N MYOCARDIAL INFARCTION N PARAPELGIA N OBESITY N GERD/NAUSEA Y ANEURYSM N URINARY/BLADDER/KIDNEY PROBLEMS N CORONARY ARTERY DISEASE (CAD) N MENIERE'S DISEASE N ADDICTION CONCERNS N ENDOMETRIOSIS N USE OF BLOOD THINNERS N SKIN PROBLEMS N EMPHYSEMA N GASTROINTESTINAL DISORDER N MUSCLE,JOINT OR BONE PROBLEMS N GASTROINTESTINAL BLEEDING N BLOOD CLOTS N ASTHMA N CATARACTS N ERECTILE DYSFUNCTION N GI PROBLEMS Y CHF N Low Testosterone N NEUROPATHY N INFERTILITY N AIDS/HIV N FRACTURES N CHEMOTHERAPY / RADIATION N VISION/EYE PROBLEMS N LIVER DISEASE N MALE HYPOGONADISM N HYPERTENSION N TOURETTE'S N ANXIETY DISORDER Y BLOOD TRANSFUSION N ANEMIA/BLOOD DISORDER N CHRONIC EAR INFECTIONS N BRONCHITIS N TUBERCULOSIS N GLAUCOMA N FOOT PROBLEM N DIVERTICULITIS N SLEEP APNEA N CHICKENPOX N ALLERGIES/HAYFEVER N INFECTIOUS DISEASE N PROSTATE N HEART ARRHYTHMIA N INSOMNIA N HIGH CHOLESTEROL / HYPERLIPIDEMIA N HYPERTHYROIDISM N EYE PROBLEMS N EATING DISORDER N EDEMA N CHRONIC PAIN SYNDROME N CONSTIPATION N CAROTID BLOCKAGE N BACK / NECK PROBLEMS Y HAVE YOU BEEN HOSPITALIZED OR SEEN IN [facility] IN THE PAST YEAR ? N ATHEROSCLEROSIS N BREAST PROBLEMS N DIALYSIS N ECZEMA N FIBROMYALGIA N OSTEOPOROSIS N ARTHRITIS N NO SIGNIFICANT PAST MEDICAL HISTORY N APPENDICITIS N DIABETES, TYPE Y BAD TEETH N HEARTBURN / REFLUX N ADD/ADHD N AUTISM SPECTRUM DISORDER (ASD) N HEPATITIS / LIVER DISEASE N PULMONARY DISEASE N GOUT N SLEEP DISORDER N ALZHEIMER'S DISEASE N PAIN N HERPES N DEMENTIA N SEIZURES/EPILEPSY N HEADACHES/MIGRAINES N VASCULAR DISEASE N PACEMAKER N DIZZINESS N KIDNEY DISEASE N HEART DISEASE/HEART PROBLEMS N SCARLET FEVER N MULTIPLE SCLEROSIS N MENTAL DISORDER/ILLNESS N DEVELOPMENTAL OR BEHAVIORAL DISORDERS N CARDIAC ARRHYTHMIA N CANCER: SPECIFY Y PNEUMONIA N Gall Stones N ATRIAL FIBRILLATION N PULMONARY EMBOLISM N AUTOIMMUNE DISEASE N Gynecological History Statement/Question Response Abnormal Pap Y Flow Moderate Date of LMP 10/16/2022 STIs/STDs N Date of Last Pap 10/15/2021 Duration of Flow (days) 4 Age at Menarche 16 Date of Last Mammogram Date of Last Colonoscopy 03/17/2020 Frequency of Cycle (Q days) 7 Most Recent Bone Density Sexually Active? Y Menses Monthly Y Date of Last Pap Smear 10/15/2021 Obstetrics History GPAL:G 2 P 2 0 0 2 Type Value Full Term 2 Living 2 Total 2 Past Encounters Encounter ID Performer Location Encounter Start Date Encounter Closed Date Diagnosis/Indication Diagnosis SNOMED-CT Code Diagnosis ICD10 Code Diagnosis Note [id number] Kraig Rutherford MD [facility] [address] 07/09/2021 00:00:00 07/09/2021 15:21:07 [id number] [facility] [address] [place] [address] 11/05/2021 00:00:00 11/05/2021 13:11:01 [id number] Silvia Leon NP [facility] [address] 11/06/2021 00:00:00 11/06/2021 10:25:52 [id number] Pankaj Wilder MD [facility] [address] [place] [address] 11/29/2021 00:00:00 11/29/2021 13:40:27 [id number] Kraig Rutherford MD [facility] [address] 02/26/2022 00:00:00 02/26/2022 13:55:34 [id number] Gloria Crenshaw MD [facility] [address] [place] [address] 07/02/2022 12:38:57 07/02/2022 13:13:38 Latent autoimmune diabetes mellitus in adult 528286492 E13.9 a1c of 8%- struggling with hyperglyce brennon in the early to late evening due to snacking. will modify pump settings as follows:12 am to 7 am at 1.45 u/hr with carb ratio of 1:87 am to 3 pm at 1 u/hr with carb ratio of 1:8add 3 pm to 9 pm at 1.1 u/hrincrea se 9 pm to 12 am 1.31u/hr with carb ratio of 1:8 target 100 mg/dL Fracture of foot 1583961 5 S92.901A Will send for low dose dexa suppressio n testing to screen for hypercorti solic state. Send for bone density scan as she was told she has osteoporos is based on x rays of feet from recent fracture. Dyslipidemia 414480631 E 78.5 LDL over 100 mg/dL- she is not able to take statin therapy. She has significan t muscle aches/ cramps on statins. Will trial on bempedoic acid as she is out of target range and higher risk for CAD/CVD events. Spent up to 27 minutes preparing to see the patient (eg, review of tests), obtaining and/or reviewing separately obtained history, performing a medically appropriat e examinatio n and evaluation , counseling and educating the patient, ordering medication s, tests, along with documentin g clinical informatio n in the electronic health record, independen tly interpreti ng results and communicat ing results to the patient. RTC in 4-5 months. Patient was provided a handwritte n lab order which contains our fax number. If she chooses to go outside of the [facility] system to obtain labwork she was advised to provide our fax number and my informatio n to the lab she will be obtaining labwork from in order to have her labs properly forwarded over for me to review so there is no loss of follow up due to use of outside network. She was also advised to contact our clinic informing us that she has completed her labwork so we are aware we will need to reach out to the appropriat e laboratory to request her results be forwarded to us so I might have the ability to review and make further medical decision making in her case. She voiced understand ing. [id number] Silvia Leon NP [facility] [place] [id number] 11/05/2022 11:00:15 11/05/2022 11:47:27 Hyperlipidemia 27921684 E78.5 Nexletol 180 mg po daily in the AM.Statins give leg cramps.Dr. Crenshaw dosing Type 1 cheryl betes mellitus 54158897 E10.[address] Gloria Crenshaw.Admel og U-100 80 units insulin pumpDexcom K6Zxtzelxi e Anxiety 59792939 F41.9 Sertraline 50 mg po daily, increase to 100 mg po daily.Bupr opion HCL XL 300 mg po daily.Culpeper al anxiety appt 12/06/22 Tobacco user 412719126 Z 72.0 Cessation encouraged and recommende d. Bupropion not helping. [id number] Gloria Crenshaw MD [facility] [address] [place] [address] 12/24/2022 14:01:47 12/24/2022 15:19:01 Latent autoimmune diabetes mellitus in adult 769468497 E13.9 a1c of 8%- struggling with hyperglyce brennon in the early to late evening due to snacking. continue pump settings as follows:12 am to 7 am at 1.45 u/hr with carb ratio of 1:87 am to 3 pm at 1 u/hr with carb ratio of 1:83 pm to 9 pm at 1.1 u/hr9 pm to 12 am at 1.3 u/hr with carb ratio of 1:8 target 100 mg/dL Educated patient on how to switch her mode to control IQ She has follow up with new endocrinol ogist in March per PCP referral. Refill dexcom as she is compliant with use and has no issues with accuracy. Send for Gvoke for hypoglycem ia rescue if needed. Dyslipidemia 177946675 E 78.5 LDL down from 137 mg/dL to 112 mg /dL-contin ue bempedoic acid as she has significan t muscle aches/ cramps on statins. Spent up to 25 minutes preparing to see the patient (eg, review of tests), obtaining and/or reviewing separately obtained history, performing a medically appropriat e examinatio n and evaluation , counseling and educating the patient, ordering medication s, tests, along with documentin g clinical informatio n in the electronic health record, independen tly interpreti ng results and communicat ing results to the patient. Patient can be followed by PCP - she/he is aware of my resignatio n and last day of December 27. If needed his/her PCP can refer patient to another endocrinol ogist in the area. All questions /concerns answered and refills necessary at visit today. Health Concerns Section Related Observation LastModified by Organization Sandie araujo LastModified Time None Recorded Concern Status LastModified by Organization Details LastModified Time None Recorded Advance Directives Directive N: Payers Encounter Date Sequence Insurance Name Policy Number Policy [employer] Covered Member ID Boateng Member ID Guarantor Name 07/02/2022 1 [facility] ON OR AFTER 09/14/20 (MEDICAID REPLACEMENT - HMO) Francie Rubin Gallito [id number] Francie Rubin Gallito 11/05/2022 1 [facility] ON OR AFTER 09/14/20 (MEDICAID REPLACEMENT - HMO) Francie Rubin Gallito [id number] Francie Rubin Gallito 12/24/2022 1 [facility] ON OR AFTER 09/14/20 (MEDICAID REPLACEMENT - HMO) Francie Rubin Gallito [id number] Francie Rubin Gallito Notes Date Note Type Note Provider Name and Address Organization Details Recorded Time 07/02/2022 text/html 46 yo female com es in for follow up in management of uncontrolled type I DM (A1C of 8% up from 7.4%), dyslipidemia and recent foot fracture. last seen/initial visit from October at that time we continued same basal settings. Basal settings:12 am to 7 am at 1.45 u/hr with carb ratio of 1:87 am to 9 pm at 1 u/hr with carb ratio of 1:89 pm to 12 am 1.1u/hr with carb ratio of 1:10 target 100 mg/dL She had breast cancer in 2019- had double mastectomy- no radiation or chemotherapy. She is not able to take statin therapy due to myalgias. She was walking her dog and he ran off twisting her foot causing fracture. labs from 04/08:A1C 8%microalbumin 8ug/mgCr normalLFT normalglucose 109 mg/dLCr normalLFT normalcpeptide 0.17 ng/mL211/83/57/136 Gloria Crenshaw MD [address] [facility], [facility] [address], [place], [address], [facility] [employer] 07/02/2022 13:26:40 11/05/2022 text/html Here for check u p. Lipid- Can't be on statin, Has been doing well on nexletol. Has labs in 1-[address] Crenshaw.Type I dm- Gloria Crenshaw. Stable on insulin pump.Anxiety- bupropion and sertraline. anxiety not controlled. currently in counseling. Awaiting to see psych. Has dental anxiety more than anything. Using xanax to get procedures done. Dec 06, 2022. No Si/HI. Feeling more anxious than normal. Unsure cause. Tobacco use- not able to stop. Slivia Leon NP [address] [facility], [facility] [address], [place], [address], [facility] 11/05/2022 11:45:27 12/24/2022 text/html 47 yo female com es in for follow up in management of uncontrolled ADONAY (A1C of 8%), dyslipidemia. last seen in June at that time wehad patient modify pump settings as follows:12 am to 7 am at 1.45 u/hr with carb ratio of 1:87 am to 3 pm at 1 u/hr with carb ratio of 1:8add 3 pm to 9 pm at 1.1 u/hrincreased 9 pm to 12 am 1.31u/hr with carb ratio of 1:8 target 100 mg/dL we trialed bempedoic acid as LDL was high on statins She feels she is getting perimenopausal changes. Her cycles are more irregular and having more sweats/mood lability. She has the T slim/control IQ. She hasn't started control IQ as she doesn't know how to change. Sugars over 200 mg/dL postmeals.under 120 mg/dL fasting. labs from 12/20/22:a1c 8%TSH of 2.11 uIU/mlFT4 of 0.8 ng/dL186/115/51/112g lucose 89 mg/dLCr normalLFT normal Gloria Crenshaw MD [address] [facility], [address], [place], [address], [facility] 12/24/2022 15:25:51 OBGyn Episode No OBEpisode recorded.
--- OUTSIDE RECORDS SUMMARY | 2024-08-09 08:33 | XMS_ITS | Encounter Summary ---
Author Organization [facility] Healthcare Address [address] [place] [id number] Care Team Providers Care Powerhouse Mechanic Helper Name Role Phone Celestien Monroe PT Unavailable Unavaila Cherie Stephenson METAL TEMPLATE MAKER Unavailable Unavailab Katherine Delvalle NP Primary Care Provider [phone] Frida Aburto NP Unavailable [phone] Halina Treviño MD PhD Unavaila ble Encounter Details Date Type Department Care Team (Latest Contact Info) Description 07/07/2024 Results Follow-Up [facility] Primary Care at [place] [address] [place] [address] Katherine East NP [address] [facility] [address] [place] [address] Erythrocyte sedimentation rate, CRP (acute phase), Rheumatoid factor, Additional followed-up results: 3 Social History Tobacco Use Types Packs/Day Years [...] on file Legal Sex Female 8:58 AM RN CHEMICAL DEPENDENCY Gender Identity Not on file Sexual Orientation Not on file documented as of this encounter Plan of Treatment Not on file documented as of this encounter Visit Diagnoses Not on filedocumented in this encounter Care Teams Powerhouse Mechanic Helper Relationship Specialty Start Date End Date Katherine East, LYRIC [address] [place] [address] PCP - General Family Medicine 10/22/23 Celestine Monroe, PT Physical Therapist Physical Therapy 10/20/17 Cherie Parker, METAL TEMPLATE MAKER Physical Therapist Physical Therapy 11/03/17 Frida Aburto DIRECTOR [employer] [address] [place] [address] [address] [place] [address] Nurse Practitioner Nurse Practitioner 10/22/23 Halina Treviño MD PhD [address] [phone] [place] [address] Surgeon Surgical Oncology 10/22/23 documented as of this encounter
--- OUTSIDE RECORDS SUMMARY | 2024-08-09 08:33 | XMS_ITS | Clinical Summary ---
Author Organization [facility] Address [address] [place] [address] Care Team Providers Care Roller Die Cutting Machine Operator Name Role Phone Celestine Monroe PT Unavailable Unavaila Cherie Stephenson CREAM TESTER Unavailable Unavailab Katherine Delvalle NIB ADJUSTER Primary Care Provider [phone] Frida Nogueira NIB ADJUSTER Unavailable [phone] Halina Treviño MD PhD Unavaila ble Allergies No known active allergies Medications blood-glucose meter,continuous (Dexcom G6 Blind Escort) misc Dexcom G6 Blind Escort misc Active BD Insulin Syringe Ultra-Fine 0.5 mL 31 gauge x 5/16 syringe 07/08/19 21 Active blood glucose diagnostic (glucose blood) strip OneTouch Ultra Test strips Active dasiglucagon (Zegalogue Autoinjector) [...] 03/19 Assessment & Plan (04/22/2024 9:59 AM MICROBIOLOGY TECHNOLOGIST): Chronic problem, not at goal. I emailed [employer] to help Francie get upgraded to G7 [...] 02/24/2024 Assessment & Plan (02/24/2024 11:21 AM MICROBIOLOGY TECHNOLOGIST): I do not appreciate any clear fascial [...] She was in understanding of the plan. Chris RUQ abdominal pain 02/22/2024 Assessment & Plan (02/22/2024 11:57 PM MICROBIOLOGY TECHNOLOGIST): - Differential includes biliary colic, GERD, PUD, DM 1 associated gastroparesis, IBS - On meloxicam, recommend adding daily PPI or famotidine for gastric prophylaxis - Eat smaller frequent meals - Follow labs and abdominal ultrasound - Instructed to go the ED if progression of symptoms Hyperlipidemia due to type 1 diabetes mellitus 1 03/22/2023 Assessment & Plan (04/22/2024 9:57 AM MICROBIOLOGY TECHNOLOGIST): Chronic problem. On statin therapy, no changes. Assessment & Plan (01/21/2024 1:49 PM MICROBIOLOGY TECHNOLOGIST): Continue statin therapy Insulin pump in place 01/21/2024 Assessment & Plan (04/22/2024 9:57 AM MICROBIOLOGY TECHNOLOGIST): No pump setting changes. Assessment & Plan (01/21/2024 1:54 PM MICROBIOLOGY TECHNOLOGIST): Have long acting , basal insulin ( [...] 05/20/2023 Assessment & Plan (05/20/2023 5:54 PM MICROBIOLOGY TECHNOLOGIST): Refer to plastic surgery for eval Allergic rhinitis 05/20/2023 Assessment & Plan (05/20/2023 5:55 PM MICROBIOLOGY TECHNOLOGIST): Consider OTC antihistamine daily. Monitor for improvement Right wrist pain 05/20/2023 Assessment & Plan (05/20/2023 5:54 PM MICROBIOLOGY TECHNOLOGIST): Refer to Ortho Muscle strain 11/15/2022 Conjunctivitis [...] (07/20/2020): Added automatically from request for surgery [id number] Malignant neoplasm of female breast 02/03/2020 Overview (02/03/2020): Added automatically from request for surgery [id number] Assessment & Plan (10/22/2023 3:50 PM CDT): 2020 diagnosed, had double mastectomy. 1 more year of surveillance with Oncologist. Ductal carcinoma in situ of left breast 02/03/20 20 Overview (02/03/2020): Added automatically from request for surgery [id number] Ductal carcinoma in situ (DCIS) of left [...] UNCNTRL Assessment & Plan (01/21/2024 1:54 PM MICROBIOLOGY TECHNOLOGIST): Chronic, uncontrolled, worsening A1c 8.9% goal A1c [...] ago was 8.2. In need of new Take Away Worker. Referral placed and updated labs ordered. Assessment [...] 11/05/2021 04/15/2024 Type 1 diabetes mellitus 07/09/2021 Encounters Date Type Department Care Team Description 08/04/2024 Telephone [facility] [address] [address] Concepcion Balderrama MD Prior Auth (Dexcom G7) 08/03/2024 Telephone [facility] Diabetes and Endocrinology [address] [place] [address] Concepcion Balderrama MD Prior Auth (Admelog) 07/08/2024 Orders Only [facility] Primary Care at [address] [address] Katherine East NP 07/07/2024 Results Follow-Up [facility] Primary Care at [address] [address] Katherine East NP Erythrocyte sedimentation rate, CRP (acute phase), Rheumatoid factor, Additional followed-up results: 3 07/06/2024 Orders Only [facility] Primary Care at [address] [address] Katherine East NP 07/06/2024 Telephone [facility] Primary Care at [address] [address] Katherine East NP PA for Nexlizet 180-10MG tablets 07/05/2024 3:30 PM CDT - 07/05/2024 11:59 PM CDT Hospital Encounter [address] [address] Arthralgia of multiple joints; Vitamin D deficiency; Mixed hyperlipidemia Discharge Disposition: Discharge to home or self care 07/05/2024 3:30 PM CDT Lab [facility] Outpatient Lab at [address] [address] 07/05/2024 3:00 PM CDT Office Visit [facility] Primary Care at [address] [address] Katherine East NP Annual physical exam (Primary Dx); Mixed hyperlipidemia; Anxiety; Arthralgia of multiple joints; Vitamin D deficiency 07/01/2024 Telephone [facility] of [facility] [id number] [place] [phone] Concepcion Balderrama MD 06/29/2024 Telephone [facility] [address] [place] [address] [address] [address] Concepcion Balderrama MD 05/20/2024 5:15 PM MICROBIOLOGY TECHNOLOGIST Office Visit [facility] at [address] [address] Nathaniel Mcdowell NP Acute maxillary sinusitis, recurrence not specified (Primary Dx) from Last 3 Months Immunizations Immunization Administration Dates Next Due Influenza, Quadrivalent, Spl it, Intramuscular 01/26/2018,01/13/2017 Influenza, Quadrivalent, Spl it, Preservative Free, Intramuscular 01/22/2020 Influenza, Trivalent, Preser vative Free, Intramuscular 01/06/2015 Influenza, Unspecified 03/17/2023(Deferr ed: Patient Refused),03/17/2022(Deferred: Patient Refused) Moderna SARS-CoV-2 Monovalen t Vaccination (12+ YRS) 07/31/2020 Pneumococcal Conjugate Pcv20 10/22/2023 Surgical History Surgery Date Site/Laterality Comments MASTECTOMY 01/21/2020 Bilateral BREAST BIOPSY 11/15/2019 Left BREAST RECONSTRUCTION 02/15/2020 - 03/16/2020 Angélica flap BREAST SURGERY 02/07/2020 Bilateral Debridement REVISION RECONSTRUCTED BREAST 06/19/2020 Bilateral 09/28/20 COLON BIOPSY 05/09/2021 COLONOSCOPY SEPTORHINOPLASTY RHINOPLASTY Medical History Medical History Date Comments Hx Other Medical alopecia Smoking Hyperlipidemia Diabetes mellitus type I (HCC) Malignant neoplasm of female breast (HCC) 2019 Former smoker quit 09/2019 Alopecia areata Alcohol abuse Anxiety Arthritis Osteoporosis Depression Kidney stone Nasal obstruction Family History Medical History Relation Name Comments Alcohol abuse Father Jewel Cancer Father Jewel Liver cancer Father Jewel No Known Problems Mother Other Other 1 No family histo ry of Diabetes mellitus; Lupus Other 2 Systemic Lupus Erythematosus - Relation: Grandmother (Added by TW Conv) Lupus Other 3 Systemic Lupus Erythematosus - (Added by TW Conv) Brain cancer Paternal Grandfather Lupus Paternal Grandmother Anesthesia problems Neg Hx Relation Name Status Comments Father Jewel Mother Other 1 Other 2 Other 3 Paternal Grandfather Paternal Grandmother Social History Tobacco Use Types Packs/Day Years [...] on file Legal Sex Female 8:58 AM MICROBIOLOGY TECHNOLOGIST Gender Identity Not on file Sexual Orientation Not on file Obstetrics History Para Term AB IAB SAB Ectopic Multiple Livin g Live Births 2 2 2 Date Outcome GA Total Labor Labor/2nd/3rd Weight Sex Type Anes PTL Amanda A1 A5 Name Clin Term Term Last Filed Vital Signs Vital Sign Reading Time Taken Comments Blood Pressure 114/72 07/05/2024 3:03 PM CDT Pulse 119 07/05/2024 3:03 PM CDT Temperature 37.1 C (98.7 F) 07/05/2024 3:03 PM CDT Respiratory Rate 18 05/20/2024 5:25 PM MICROBIOLOGY TECHNOLOGIST Oxygen Saturation 95% 07/05/2024 3:03 PM CDT Inhaled Oxygen Concentration - - Weight 71.2 kg (157 lb) 07/05/2024 3:03 PM CDT Height 157.5 cm (5' 2.01) 07/05/2024 3:03 PM CD T Body Mass Index 28.71 07/05/2024 3:03 PM CDT Plan of Treatment Health Maintenance Due Date Last Done Comments DTaP/Tdap/Td Vaccine (1 - Tdap) 07/14/1987 Hepatitis B Screening 1994 Covid-19 Vaccine (2023- 5 season) 2023 10/21/2020, 07/31/2020 Hemoglobin A1C 10/20/2024 04/22/2024, 12/17, 10/22/2023, Additional history exists TSH Level 10/21/2024 10/22/2023, 12/25/2017 Albumin Creatinine Ratio, Urine 10/23/2024 Influenza Vaccine (Season Ended) 2024 01/22/2020, 01/26/2018, 01/13/2017, Additional history exists Foot Exam 01/13/2025 01/14/2024, 10/22/2023 Dilated Eye Exam 01/18/2025 01/19/2024, 01/21/2023 eGFR 02/10/2025 02/11/2024, 10/22/2023 Depression Screening 07/05/2025 07/05/2024, 02/11/2024, 11/24/2023, Additional history exists Lipid Panel 07/05/2025 07/05/2024, 0809/2023, 02/21/2020 Regular Well Visit/Exam 18-64 07/05/2025 07/05/2024 Cervical Cancer Screening 12/14/2025 12/14/2022 Colon Cancer Screening-Colonoscopy 05/09/2026 05/09/2021 Breast Cancer Screening-Mammogram Discontinued 020 Hepatitis C Screening Completed 10/22/2023 Pneumococcal vaccine <65 Completed 10/22/2023 Medical Devices Implanted Type Area Take Up Operator Device Identifier Shelf Expiration Date Model / Serial / Lot Pro Breath MD Allian [id number] [place] Microvascular 3mm Ring Pin Protective Cover Jaw Assembly Latex Free - S0 - [id number] Implanted:Qty: 1 on 02/21/2020 by Jose Herrera MD at [facility] Clip Right: Breast Mobbr [employer]d [employer] Claudette [id number] 10/13/2024 [id number] / 0 / [id number] Description:3.0 textile engineer Pro Breath MD Allian 2753 [place] 2.5mm Ring Pin Ultrasonic Doppler 20mhz Lead Process Engineer Anastomosis Latex Free - S0 - [id number] Implanted:Qty: 1 on 02/21/2020 by Vandana Bergman MD at [facility] Clip Left: Breast [employer] Claudette [id number] 09/25/2024 2753 / 0 / [id number] Davol Inc/C R Bard [id number] Phasix 8x6in Monofilament Scaffold Full Resorbable Rectangle Mesh - S0 - [id number] Implanted:Qty: 1 on 02/21/2020 by Vandana Bergman MD at [facility] Mesh Bilateral: Abdomen [employer]ol Inc/C R Bard [id number] 04/13/2021 [id number] / 0 / [id number] Sientra Inc Allox2-14se Allox 14x11.2cm Smooth Surface Integrate Port Breast P6-7.3cm Mid - [id number] - [id number] Implanted:Qty: 1 on 01/21/2020 by Vandana Bergman MD at [facility] Right: Chest Sientra Inc 08/10/2024 ALLOX2-14S E / [id number] / Sientra Inc Allox2-Fh14se Allox2 14x12.9cm Smooth Surface Integrate Port Breast P6.1-7.3cm - [id number] - [id number] Implanted:Qty: 1 on 01/21/2020 by Vandana Bergman MD at [facility] Left: Chest Sientra Inc 09/20/2024 ALLOX2-FH1 4SE / [id number] / Allergan Usa Inc [id number] Alloderm Select 64i08cv Allograft Regenerative Freeze Dried - [id number] Implanted:Qty: 1 on 01/21/2020 by Vandana Bergman MD at [facility] Left: Chest [employer] [id number] 09/13/2021 [id number] / / [id number] Allergan [employer] [id number] Alloderm Select 36d20mj Allograft Regenerative Freeze Dried - [id number] Implanted:Qty: 1 on 01/21/2020 by Vandana Bergman MD at [facility] Right: Chest [employer] [id number] 09/13/2021 [id number] / / [id number] Procedures Procedure Name Priority Date/Time Associated Diagnosis [...] HEMOGLOBIN A1C Routine 04/22/2024 9 :11 AM MICROBIOLOGY TECHNOLOGIST Type 1 diabetes mellitus with hyperglycemia (HCC) EGFR Routine 02/11/2024 12:00 PM MICROBIOLOGY TECHNOLOGIST Colicky RUQ abdominal pain HM DIABETES EYE EXAM Routine 01/19/2024 7:54 AM MICROBIOLOGY TECHNOLOGIST ALBUMIN CREATININE RATIO, URINE Routine 10/24/2023 10:15 AM CDT Type 1 diabetes mellitus without complication (HCC) HEPATITIS C ANTIBODY Routine 10/22/2023 4:00 PM CDT Encounter for hepatitis C screening test for low risk patient THYROID FUNCTION CASCADE Routine 10/22/2023 4:00 PM CDT Type 1 diabetes mellitus without complication (HCC) COLONOSCOPY 05/09/2021 11:16 AM MICROBIOLOGY TECHNOLOGIST SCREENING MAMMOGRAM BILATERAL W MAX Schedule Routine, Read Routine (OP Routine) 09/22/2019 10:12 AM CDT Encounter for screening mammogram for malignant neoplasm of breast from Last 3 Months or Most Recently Relevant to Health Maintenance Results * CARLYN ab ql w/rflx to CARLYN qn (07/05/2024 3:30 PM CDT) Pathologist [facility] CARLYN Negative Comment: Interpretive Data Normal range [...] last revised on 2019. Testing performed by: [facility], [address] [place] [address]., [address] Blood 07/05/2024 3:30 PM CDT 07/06/2024 10:10 AM CDT Katherine East NP LAB BLOOD ORDERABLES Final Resul t Performing Organization Address City/[facility] Co de Phone Number EDYTA [address] [place] [address] * Vitamin D 25 hydroxy (07/05/2024 3:30 PM CDT) Pathologist [facility] Vitamin D 25-OH 30 30 - 80 ng/mL Blood 07/05/2024 3:30 PM CDT 07/05/2024 9:56 PM CDT Katherine East NP LAB BLOOD ORDERABLES Final Resul t Performing Organization Address City/[facility]/ZIP Co de Phone Number EDYTA [address] [place] [address] * (ABNORMAL) Erythrocyte sedimentation rate (07/05/2024 3:30 PM CDT) Pathologist [facility] Erythrocyte sedimentation rate 57(H) 1 - 20 mm/hr Comment:Testing performed by : [facility], [place], [address] Blood 07/05/2024 3:30 PM CDT 07/05/2024 7:15 PM CDT us Katherine East NIB ADJUSTER LAB BLOOD ORDERABLES Final Resul t Performing Organization Address City/[facility] Co de Phone Number EDYTA BOYD [address] [place] [address] * Rheumatoid factor (07/05/2024 3:30 PM CDT) Rheumatoid factor, quant <10 <=15 IUnits/mL Blood 07/05/2024 3:30 PM CDT 07/05/2024 9:56 PM CDT us Katherine East NIB ADJUSTER LAB BLOOD ORDERABLES Final Resul t Performing Organization Address [facility] de Phone Number EDYTA OLVIER [address] [place] [address] * CRP (acute phase) (07/05/2024 3:30 PM CDT) CRP 3.3 <=10.0 mg/L Blood 07/05/2024 3:30 PM CDT 07/05/2024 9:56 PM CDT us Katherine East NIB ADJUSTER LAB BLOOD ORDERABLES Final Resul t Performing Organization Address [facility] de Phone Number EDYTA OLIVER [address] [facility] [place] [place] [address] * Lipid panel (07/05/2024 3:30 PM CDT) [...] 2. NCEP Expert Panel. Circulation 2004;110:227 3. Walls M et al. NING Cardiol. 2020 July 15;5(5):540-548. [...] revised on 2017. Chol/HDL ratio 3 EDYTA Blood 07/05/2024 3:30 PM CDT 07/05/2024 9:56 PM CDT Katherine East NIB ADJUSTER LAB BLOOD ORDERABLES Final Resul t EDISONFILI [address] [place] [address] * (ABNORMAL) POCT hemoglobin A1c (04/22/2024 9:11 AM MICROBIOLOGY TECHNOLOGIST) Hemoglobin A1C, POC 8.4 4.0 - 5.6 % Capillary blood 04/22/2024 9 :11 AM MICROBIOLOGY TECHNOLOGIST Bethany DELACRUZ POINT OF CARE TEST ORDE RABLES Final Result * eGFR (02/11/2024 12:00 PM MICROBIOLOGY TECHNOLOGIST) eGFR >90 >=60 mL/min/1. 73 m2 Comment: [...] reviewed 2021. Blood 02/11/2024 12:0 0 PM MICROBIOLOGY TECHNOLOGIST 02/11/2024 7:54 PM MICROBIOLOGY TECHNOLOGIST Whitney Matthews NP LAB BLOOD ORDERABLES Final R esult EDYTA BOYD [address] [place] [address] * DIABETES EYE EXAM (01/19/2024 7:54 AM MICROBIOLOGY TECHNOLOGIST) Historical Provider HEALTH MAINTENANCE Final Result * Albumin Creatinine Ratio, Urine (10/24/2023 10:15 AM CDT) Albumin Ur <12.0 mg/L Comment: Interpretive Data No reference range established. Current interpretive data was last revised 2018. Creatinine Ur 39.4 mg/dL EDYTA BOYD Comment: Interpretive Data No reference range established. Current interpretive data was last revised 2018. Albumin Creatinine Ratio, Ur See Comment 1 - 29 EDYTA BOYD Comment:Unable to calculate Urine 10/24/2023 10:1 5 AM CDT 10/24/2023 3:48 PM CDT Katherine East NP LAB URINE ORDERABLES Final Resul t EDYTA BOYD [address] [place] [address] * Thyroid Function Seanor (10/22/2023 4:00 PM CDT) TSH 1.97 0.30 - 4.20 mcIUnit/mL Blood 10/22/2023 4:00 PM CDT 10/22/2023 8:26 PM CDT us Katherine East NP LAB BLOOD ORDERABLES Final Resul t Performing Organization Address [facility] [place] [address] [address] [place] [address] * Hepatitis C antibody Blood (10/22/2023 4:00 [...] MICROBIOLOGY - GENERAL ORDER EULOGIO Final Result Performing Organization Address [facility] de Phone Number EDISONFILI BOYD [address] [place] [address] * COLONOSCOPY (05/09/2021 11:16 AM MICROBIOLOGY TECHNOLOGIST) Anatomical Region Laterality Modality Other Narrative Procedure Note Jhonathan Florez MD - 05/09/2021 11:16 AM CST [facility] Patient Name: Francie Conti Procedure Date: 05/09/2021 11:16 AM Date of : 1975 Admit Type: Outpatient Age: 45 Gender: Female Attending MD: Jhonathan Florez M.D. Room: [facility] ENDOSCOPY ROOM 1 Note Status: [...] passed under direct vision.The Pediatric Colonoscope [id number] was introduced through the anus and advanced [...] 11:16 AM Procedure Code(s): --- Professional --- 49073, Colonoscopy, flexible; with biopsy, single or multiple Diagnosis Code(s): --- Professional --- K63.5, Polyp of colon R19.4, Change in bowel habit K59.04, Chronic idiopathic constipation CPT copyright 2019 [employer]. All rights reserved. The codes documented in this report are preliminary and upon hand tube bender reviewmay be revised to meet current compliance requirements. Recognized by the [place] [employer] for promoting quality [...] mass, calcification, or architectural distortion. Frida Nogueira NIB ADJUSTER IMG MAMMO PROCEDURES Final Re sult from Last 3 Months or Most Recently Relevant to Health Maintenance Insurance [facility] Advance Directives For more information, please contact: [phone] * Full Code (Latest Code Status on [...] 9:57 PM 01/23/2020 12:06 AM Care Teams Roller Die Cutting Machine Operator Relationship Specialty Start Date End Date Katherine East NP [address] [address] PCP - General Family Medicine 10/22/23 Celestine Monroe, PT Physical Therapist Physical Therapy 10/20/17 Cherie Parker PTA Physical Therapist Physical Therapy 11/03/17 Frida Nogueira, NIB ADJUSTER 4 [facility] [address] [address] Nurse Practitioner Nurse Practitioner 10/22/23 Halina Treviño MD PhD [address] [phone] [place] [address] Surgeon Surgical Oncology 10/22/23
--- OUTSIDE RECORDS SUMMARY | 2024-08-09 08:33 | XMS_ITS ---
Author Organization [facility] Address [address] [place] [address] Care Team Providers Care Remnant Sorter Name Role Phone Celestine Monroe PT Unavailable Unavaila Cherie Stephenson RAWHIDE BONE ROLLER Unavailable Unavailab Katherine Delvalle NP Primary Care Provider [phone] Frida Aburto [facility] Unavailable [phone] Halina Treviño MD PhD Unavaila ble Active Problems Problem Noted Date Diagnosed Date Type 1 diabetes mellitus with hyperglycemia 03/19 Assessment & Plan (04/22/2024 9:59 AM WOOD TURNER): Chronic problem, not at goal. I emailed [employer] [facility] to help Francie get upgraded to G7 [...] 02/24/2024 Assessment & Plan (02/24/2024 11:21 AM WOOD TURNER): I do not appreciate any clear fascial [...] 02/22/2024 Assessment & Plan (02/22/2024 11:57 PM WOOD TURNER): - Differential includes biliary colic, GERD, PUD, DM 1 associated gastroparesis, IBS - On meloxicam, recommend adding daily PPI or famotidine for gastric prophylaxis - Eat smaller frequent meals - Follow labs and abdominal ultrasound - Instructed to go the ED if progression of symptoms Hyperlipidemia due to type 1 diabetes mellitus 1 03/22/2023 Assessment & Plan (04/22/2024 9:57 AM WOOD TURNER): Chronic problem. On statin therapy, no changes. Assessment & Plan (01/21/2024 1:49 PM WOOD TURNER): Continue statin therapy Insulin pump in place 01/21/2024 Assessment & Plan (04/22/2024 9:57 AM WOOD TURNER): No pump setting changes. Assessment & Plan (01/21/2024 1:54 PM WOOD TURNER): Have long acting , basal insulin ( [...] 05/20/2023 Assessment & Plan (05/20/2023 5:54 PM WOOD TURNER): Refer to plastic surgery for eval Allergic rhinitis 05/20/2023 Assessment & Plan (05/20/2023 5:55 PM WOOD TURNER): Consider OTC antihistamine daily. Monitor for improvement Right wrist pain 05/20/2023 Assessment & Plan (05/20/2023 5:54 PM WOOD TURNER): Refer to Ortho Muscle strain 11/15/2022 Conjunctivitis [...] (07/20/2020): Added automatically from request for surgery [id number] Malignant neoplasm of female breast 02/03/2020 Overview (02/03/2020): Added automatically from request for surgery [id number] Assessment & Plan (10/22/2023 3:50 PM CDT): 2020 diagnosed, had double mastectomy. 1 more year of surveillance with Oncologist. 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 In need of new Research Clerk. Referral placed and updated labs ordered. Assessment [...] be reassessed in 3 months. Dermatofibroma 12/01/2012 Current Treatment and Therapy Plans No current plan information found. Past Treatment and Therapy Plans No past plan information found. Lifetime Dose Tracking * Chemical Lifetime Dose Automatic Entry Manual Entr y DLP 1,232 mGycm 1,232 mGycm 0 mGycm Resolved Problems Problem Noted Date Diagnosed Date Resolved Date Type 1 diabetes mellitus not at goal 11/05/2021 04/15/2024 Type 1 diabetes mellitus 07/09/2021
[2024-08-09 09:08] LABS: Glucose Point of Care 201 mg/dl (65-105)
--- NOTE | 2024-08-09 09:13 | ED_ITS ---
HPI - Nausea/Vomiting/Diarrhea General Chief complaint: Nausea/Vomiting/Diarrhea Stated complaint: N/V/D, sweats, concerned for DKA Time Seen by Provider: 08/09/24 09:00 History of Present Illness HPI Narrative: 49-year-old female with history of type 1 diabetes and hyperlipidemia presents to the emergency department for N/V/D since 5:00 a.m. this morning. Patient denies fever, cough or congestion, abdominal pain, dysuria, hematuria. Patient states she wants to make sure she is not in DKA. States her sugars at home have been okay. Denies recent sick contacts, antibiotic use, exposed to healthcare, surgeries or hospitalizations, travel, history of C diff. she denies ETOH use but admits to smoking marijuana daily. Last use was yesterday. Related Data Home Medications ?Medication ?Instructions ?Recorded ?Confirmed ?Last Taken ?Type bupropion HCl 300 mg 24 hr tablet, 300 mg PO QAM 04/10/23 Unknown History extended release (Wellbutrin XL) sertraline 100 mg tablet (Zoloft) 100 mg PO DAILY 04/10/23 Unknown History Allergies Allergy/AdvReac Type Severity Reaction Status Date / Time No Known Allergies Allergy Verified 04/10/23 09:45 Review of Systems 2 Review of Systems: All systems reviewed & are unremarkable except as noted in HPI and below PMFSH Past Medical History Medical History Diabetes Family History Family History Father Family history of alcoholism Social History Social History Smoking status: Current every day smoker Smoking end date: 03/17/03 Additional smoking assessment comments: Currently smokes less than half a pack per day. Has tried to quit smoking. Alcohol intake: former Substance use: current Substance use type: marijuana Do You Feel Safe in your Home?: Yes Lack of Transportation: No Lack of Food: Never True Current Housing: I Have Housing Concerned About Future Housing: No Difficulty Paying Gas/Electric Bills: No Difficulty Paying for Meds: No Currently Unemployed: No Education: Trade/Vocational Certificate Difficulty w/ Childcare or Family Care: No Exam 2 Narrative: GENERAL: Moaning in exam bed, NAD HEAD: Normocephalic, atraumatic. EYES: EOMI. ENT: Nares clear, no rhinorrhea or epistaxis. Mucous membranes dry NECK: Supple. CHEST: Clear to auscultation. No respiratory distress. HEART: Regular rate and rhythm. No murmur heard. Normal peripheral pulses. ABDOMEN: Soft, nontender, nondistended, normal active bowel sounds. No rebound, guarding or rigidity. No CVA tenderness EXTREMITIES: Normal range of motion. No edema. SKIN: Warm, dry, no rash. NEURO: No focal deficits. Alert and oriented x3 Course Vital Signs Vital signs: Vital Signs Temperature 97.7 F 08/09/24 08:32 Pulse Rate 63 08/09/24 08:32 Respiratory Rate 18 08/09/24 08:32 Blood Pressure 153/95 H 08/09/24 08:32 Pulse Oximetry 100 08/09/24 08:32 Oxygen Delivery Room Air 08/09/24 08:32 Temperature 97.5 F L 08/09/24 11:45 Pulse Rate 53 L 08/09/24 11:45 Respiratory Rate 21 H 08/09/24 11:45 Blood Pressure 160/127 H 08/09/24 11:31 Pulse Oximetry 100 08/09/24 11:18 Oxygen Delivery Room Air 08/09/24 08:32 MDM - Nausea/Vomiting/Diarrhea MDM Narrative Medical decision making narrative: 49-year-old female with history of type 1 diabetes and hyperlipidemia presents to the emergency department for N/V/D since 5:00 a.m. this morning. See HPI for further history. Vital signs stable. Patient is afebrile, she is moaning in exam bed. Abdomen is soft and nontender. CBC with leukocytosis of 16.3, no bandemia, likely reactive. Chemistries with a bicarb of 20 and normal anion gap. Glucose is 201. Beta hydroxybutyrate is within normal limits. UA with 6-10 rbc's and trace ketonuria, no blood cells or bacteria indicative of UTI. Patient is on her menstrual cycle. Lipase is within normal limits. is negative. Patient was updated on results. She received 2 L of IV fluids, Zofran and Haldol with improvement, notably after Haldol. She is tolerating p.o. intake. She is requesting to be discharged home. Suspect gastroenteritis versus cannabinoid hyperemesis syndrome. Patient was advised to increase fluid intake, rest and discontinue marijuana use as this may be exacerbating her symptoms. Instructed follow-up with PCP and strict ED return precautions. She is agreeable with the plan verbalized understanding. Discharged in stable condition. Lab Data 08/09/24 09:12 08/09/24 09:12 Labs: Lab Results 08/09/24 08/09/24 08/09/24 Range/Units 08:58 09:11 09:12 WBC 16.3 H (4.5-10.0) K/mm3 RBC 4.25 (4.2-5.4) M/mm3 Hgb 12.9 (12.0-15.0) g/dL Hct 38.2 (37.0-47.0) % MCV 89.9 (80-100) fl MCH 30.4 (26-34) pg MCHC 33.8 (32-36) g/dl RDW 14.0 (11.5-14.5) % Plt Count 389 H (150-375) k/mm3 MPV 9.6 (7.4-10.4) fl Immature Gran % (Auto) 0.4 (0-0.5) % Neut % (Auto) 78.8 H (45.5-73.1) % Lymph % (Auto) 14.4 L (18.3-44.2) % Sunflower % (Auto) 5.0 (2.6-8.5) % Eos % (Auto) 0.8 (0-4.4) % Baso % (Auto) 0.6 (0.2-1.2) % Lymph # (Auto) 2.35 (0.9-3.2) K/mm3 Sunflower # (Auto) 0.8 H (0.1-0.6) K/mm3 Eos # (Auto) 0.1 (0-0.3) K/mm3 Baso # (Auto) 0.1 (0.0-0.1) K/mm3 Abs Immat Gran (auto) 0.07 H (0.00-0.031) K/mm3 Absolute Neuts (auto) 12.8 H (1.3-6.7) K/mm3 Absolute Nucleated RBC 0.000 (0.0-0.012) K/mm3 Nucleated RBC % 0.0 (0.0-0.2) % Sodium 137 (137-145) mmol/L Potassium 3.6 (3.4-5.0) mmol/L Chloride 109 H (98-107) mmol/L Carbon Dioxide 20 L (22-30) mmol/L Anion Gap 8 (4-12) mmol/L BUN 9 D (7-17) mg/dL Creatinine 0.57 L (0.7-1.0) mg/dL Estim Creat Clear Calc 96 ml/min Estimated GFR > 60 (59 - ) Glucose 198 H (65-110) mg/dL POC Capillary Glucose 201 H (65-105) mg/dl Calcium 9.1 (8.4-10.2) mg/dL Total Bilirubin 0.3 (0.2-1.3) mg/dL AST 37 H (14-36) U/L ALT 23 (6-35) U/L Alkaline Phosphatase 75 (38-126) U/L Total Protein 7.0 (6.3-8.2) g/dL Albumin 4.1 (3.5-5.1) g/dL Lipase 185 (23-300) U/L Beta-Hydroxybutyrate/Acetoacetate 0.18 (0.02-0.27) mmol/L Urine Color Yellow (Yellow) Urine Appearance Turbid H (Clear) Urine pH 8.5 (5.0-9.0) Ur Specific [place] 1.014 (1.001-1.035) Urine Protein Negative (Negative) mg/dL Urine Glucose (UA) Trace H (Negative) mg/dL Urine Ketones Trace H (Negative) mg/dL Ur Blood (Man) 3+ H (Negative) Urine Nitrate Negative (Negative) Urine Bilirubin Negative (Negative) Urine Urobilinogen 0.2 (<2.0) mg/dL Leukocyte Esterase Rfl Negative (Negative) MARTIN/UL Urine RBC 6-10 H (0-2) /hpf Urine WBC 0-5 (0-3) /hpf Ur Squamous Epith Cells Occasional (Few) /hpf Urine Bacteria None seen /hpf Urine Casts 0-2 POC Urine HCG, Qual Negative (Negative) Influenza A (RT-PCR) Influenza B (RT-PCR) RSV (RT-PCR) SARS-CoV-2 RNA (RT-PCR) 08/09/24 Range/Units 11:57 WBC (4.5-10.0) K/mm3 RBC (4.2-5.4) M/mm3 Hgb (12.0-15.0) g/dL Hct (37.0-47.0) % MCV (80-100) fl MCH (26-34) pg MCHC (32-36) g/dl RDW (11.5-14.5) % Plt Count (150-375) k/mm3 MPV (7.4-10.4) fl Immature Gran % (Auto) (0-0.5) % Neut % (Auto) (45.5-73.1) % Lymph % (Auto) (18.3-44.2) % Sunflower % (Auto) (2.6-8.5) % Eos % (Auto) (0-4.4) % Baso % (Auto) (0.2-1.2) % Lymph # (Auto) (0.9-3.2) K/mm3 Sunflower # (Auto) (0.1-0.6) K/mm3 Eos # (Auto) (0-0.3) K/mm3 Baso # (Auto) (0.0-0.1) K/mm3 Abs Immat Gran (auto) (0.00-0.031) K/mm3 Absolute Neuts (auto) (1.3-6.7) K/mm3 Absolute Nucleated RBC (0.0-0.012) K/mm3 Nucleated RBC % (0.0-0.2) % Sodium (137-145) mmol/L Potassium (3.4-5.0) mmol/L Chloride (98-107) mmol/L Carbon Dioxide (22-30) mmol/L Anion Gap (4-12) mmol/L BUN (7-17) mg/dL Creatinine (0.7-1.0) mg/dL Estim Creat Clear Calc ml/min Estimated GFR (59 - ) Glucose (65-110) mg/dL POC Capillary Glucose (65-105) mg/dl Calcium (8.4-10.2) mg/dL Total Bilirubin (0.2-1.3) mg/dL AST (14-36) U/L ALT (6-35) U/L Alkaline Phosphatase (38-126) U/L Total Protein (6.3-8.2) g/dL Albumin (3.5-5.1) g/dL Lipase (23-300) U/L Beta-Hydroxybutyrate/Acetoacetate (0.02-0.27) mmol/L Urine Color (Yellow) Urine Appearance (Clear) Urine pH (5.0-9.0) Ur Specific [place] (1.001-1.035) Urine Protein (Negative) mg/dL Urine Glucose (UA) (Negative) mg/dL Urine Ketones (Negative) mg/dL Ur Blood (Man) (Negative) Urine Nitrate (Negative) Urine Bilirubin (Negative) Urine Urobilinogen (<2.0) mg/dL Leukocyte Esterase Rfl (Negative) MARTIN/UL Urine RBC (0-2) /hpf Urine WBC (0-3) /hpf Ur Squamous Epith Cells (Few) /hpf Urine Bacteria /hpf Urine Casts POC Urine HCG, Qual (Negative) Influenza A (RT-PCR) Pending Influenza B (RT-PCR) Pending RSV (RT-PCR) Pending SARS-CoV-2 RNA (RT-PCR) Pending Discharge Plan Discharge Clinical Impression: Gastroenteritis Patient Disposition: Home Condition: Stable Instructions: Antibiotic Form, Gastroenteritis (ED) Additional Instructions: You were evaluated in the emergency department for nausea, vomiting or diarrhea since this morning. Her symptoms may be secondary to viral gastroenteritis versus marijuana use as discussed. Please discontinue your marijuana use. Drink plenty of water. Make sure to closely monitor your blood sugar. Return to the emergency department if you develop a fever, focal abdominal pain, you are unable to tolerate food or fluids, or develops other concerning symptoms. Patient Language: Canadian Prescriptions: New ondansetron 4 mg tablet,disintegrating 4 mg PO Q8H Qty: 14 0RF No Action bupropion HCl [Wellbutrin XL] 300 mg tablet extended release 24 hr 300 mg PO QAM sertraline [Zoloft] 100 mg tablet 100 mg PO DAILY cholecalciferol (vitamin D3) 1,250 mcg (50,000 unit) capsule 1,250 mcg PO WEEKLY Qty: 12 0RF Rx Instructions: 50,000 units once weekly for 12 weeks Ozempic 0.25 mg or 0.5 mg (2 mg/3 mL) pen injector 0.25 mg subcut WEEKLY Qty: 3 0RF Rx Instructions: 0.25 mg once weekly atorvastatin [Lipitor] 40 mg tablet 40 mg PO DAILY Qty: 90 0RF (DME) insulin syringe-needle U-100 [BD Insulin Syringe] 1 mL 27 gauge x 1/2 syringe See Rx Instructions .Route Qty: 500 0RF Rx Instructions: As directed (DME) blood-glucose meter [OneTouch Verio Flex meter] Misc See Rx Instructions .ROUTE .MEDSUPPLY Qty: 1 0RF Rx Instructions: As directed (DME) OneTouch Ultra Test Strip See Rx Instructions .ROUTE .MEDSUPPLY Qty: 100 12RF Rx Instructions: 3 times a day (DME) lancets [OneTouch UltraSoft 2 Lancet] 30 gauge misc See Rx Instructions .ROUTE .MEDSUPPLY Qty: 100 12RF Rx Instructions: three times a day insulin lispro [Admelog U-100 Insulin lispro] 100 unit/mL solution 1 sliding scale dose subcut USEASDIRECTD MDD 70 Qty: 70 1RF Follow-up/Referrals: Shane,Katherine Castro MD [Primary Care Provider] -
[2024-08-09 09:14] LABS: BEDSIDEPREGUCG Negative (Negative)
--- OUTSIDE RECORDS SUMMARY | 2024-08-09 09:14 | XMS_ITS | Clinical Summary ---
Author Organization [facility] Address [address] [place] [address] Care Team Providers Care Application Engineer Name Role Phone Celestine Monroe PT Unavailable Unavaila Cherie Stephenson JEWELRY COATER Unavailable Unavailab Katherine Delvalle SUPERVISOR ROCKET [employer]OPELLANT PLANT Primary Care Provider [phone] Frida Nogueira SUPERVISOR ROCKET [employer]OPELLANT PLANT Unavailable [phone] Halina Treviño MD PhD Unavaila ble Allergies No known active allergies Medications blood-glucose meter,continuous (Dexcom G6 Diesel Engine I Pipe Fitter) misc Dexcom G6 Diesel Engine I Pipe Fitter misc Active BD Insulin Syringe Ultra-Fine 0.5 [...] 03/19 Assessment & Plan (04/22/2024 9:59 AM LOST AND FOUND CLERK): Chronic problem, not at goal. I emailed [employer] to help Francie get upgraded to G7 [...] 02/24/2024 Assessment & Plan (02/24/2024 11:21 AM LOST AND FOUND CLERK): I do not appreciate any clear fascial [...] 02/22/2024 Assessment & Plan (02/22/2024 11:57 PM LOST AND FOUND CLERK): - Differential includes biliary colic, GERD, PUD, DM 1 associated gastroparesis, IBS - On meloxicam, recommend adding daily PPI or famotidine for gastric prophylaxis - Eat smaller frequent meals - Follow labs and abdominal ultrasound - Instructed to go the ED if progression of symptoms Hyperlipidemia due to type 1 diabetes mellitus 1 03/22/2023 Assessment & Plan (04/22/2024 9:57 AM LOST AND FOUND CLERK): Chronic problem. On statin therapy, no changes. Assessment & Plan (01/21/2024 1:49 PM LOST AND FOUND CLERK): Continue statin therapy Insulin pump in place 01/21/2024 Assessment & Plan (04/22/2024 9:57 AM LOST AND FOUND CLERK): No pump setting changes. Assessment & Plan (01/21/2024 1:54 PM LOST AND FOUND CLERK): Have long acting , basal insulin ( [...] 05/20/2023 Assessment & Plan (05/20/2023 5:54 PM LOST AND FOUND CLERK): Refer to plastic surgery for eval Allergic rhinitis 05/20/2023 Assessment & Plan (05/20/2023 5:55 PM LOST AND FOUND CLERK): Consider OTC antihistamine daily. Monitor for improvement Right wrist pain 05/20/2023 Assessment & Plan (05/20/2023 5:54 PM LOST AND FOUND CLERK): Refer to Ortho Muscle strain 11/15/2022 Conjunctivitis [...] (07/20/2020): Added automatically from request for surgery [id number] Malignant neoplasm of female breast 02/03/2020 Overview (02/03/2020): Added automatically from request for surgery [id number] Assessment & Plan (10/22/2023 3:50 PM CDT): 2020 diagnosed, had double mastectomy. 1 more year of surveillance with Oncologist. Ductal carcinoma in situ of left breast 02/03/20 20 Overview (02/03/2020): Added automatically from request for surgery [id number] Ductal carcinoma in situ (DCIS) of left [...] UNCNTRL Assessment & Plan (01/21/2024 1:54 PM LOST AND FOUND CLERK): Chronic, uncontrolled, worsening A1c 8.9% goal A1c [...] ago was 8.2. In need of new Casket Trimmer. Referral placed and updated labs ordered. Assessment [...] Team Description 08/04/2024 Telephone [facility] [address] [address] Concepcion Balderrama MD Prior Auth (Dexcom G7) 08/03/2024 Telephone [facility] [address] [place] [address] Concepcion Balderarma MD Prior Auth (Admelog) 07/08/2024 Orders Only [facility] at [address] [address] Katherine East NP 07/07/2024 Results Follow-Up [facility] at [address] [address] Katherine East NP Erythrocyte sedimentation rate, CRP (acute phase), Rheumatoid factor, Additional followed-up results: 3 07/06/2024 Orders Only [facility] at [address] [address] Katherine East NP 07/06/2024 Telephone [facility] at [address] [address] Katherine East NP PA for Nexlizet 180-10MG tablets 07/05/2024 3:30 PM CDT - 07/05/2024 11:59 PM CDT Hospital Encounter [address] [address] Arthralgia of multiple joints; Vitamin D deficiency; Mixed hyperlipidemia Discharge Disposition: Discharge to home or self care 07/05/2024 3:30 PM CDT Lab [facility] Outpatient Lab at [address] [address] 07/05/2024 3:00 PM CDT Office Visit [facility] at [address] [address] Katherine East NP Annual physical exam (Primary Dx); Mixed hyperlipidemia; Anxiety; Arthralgia of multiple joints; Vitamin D deficiency 07/01/2024 Telephone [facility] [id number] [place] [phone] Concepcion Balderrama MD 06/29/2024 Telephone [facility] [id number] [place] [address] [address] [address] Concepcion Balderrama MD 05/20/2024 5:15 PM LOST AND FOUND CLERK Office Visit [facility] at [address] [address] Nathaniel Mcdowell NP Acute maxillary [...] on file Legal Sex Female 8:58 AM LOST AND FOUND CLERK Gender Identity Not on file Sexual Orientation [...] CDT Respiratory Rate 18 05/20/2024 5:25 PM LOST AND FOUND CLERK Oxygen Saturation 95% 07/05/2024 3:03 PM CDT [...] Completed 10/22/2023 Medical Devices Implanted Type Area Venetian Blind Machine Operator Device Identifier Shelf Expiration Date Model / Serial / Lot Seeqpod Allian [id number] Donley Microvascular 3mm Ring Pin Protective Cover Jaw Assembly Latex Free - S0 - [id number] Implanted:Qty: 1 on 02/21/2020 by Jose Herrera MD at [facility] Clip Right: Breast [employer] [address] Claudette [id number] 10/13/2024 [id number] / 0 / [id number] Description:3.0 structural steel fitter Seeqpod Allian 2753 Donley 2.5mm Ring Pin Ultrasonic Doppler 20mhz Clothes Designer Anastomosis Latex Free - S0 - [id number] Implanted:Qty: 1 on 02/21/2020 by Vandana Bergman MD at [facility] Clip Left: Breast [employer] Claudette [id number] 09/25/2024 [id number] / 0 / [id number] Davol Inc/C R Bard [id number] Phasix 8x6in Monofilament Scaffold Full Resorbable Rectangle Mesh - S0 - [id number] Implanted:Qty: 1 on 02/21/2020 by Vandana Bergman MD at [facility] Mesh Bilateral: Abdomen [employer] Inc/C R Bard [id number] 04/13/2021 [id number] / 0 / [id number] Sientra Inc Allox2-14se Allox 14x11.2cm Smooth Surface Integrate Port Breast P6-7.3cm Mid - [id number] - [id number] Implanted:Qty: 1 on 01/21/2020 by Vandana Bergman MD at [facility] Right: Chest S[employer] Inc 08/10/2024 ALLOX2-14S E / [id number] / Sientra Inc Allox2-Fh14se Allox2 14x12.9cm Smooth Surface Integrate Port Breast P6.1-7.3cm - [id number] - [id number] Implanted:Qty: 1 on 01/21/2020 by Vandana Bergman MD at [facility] Left: Chest S[employer]ra Inc 09/20/2024 ALLOX2-FH1 4SE / [id number] / Allergan Usa [employer] [id number] Alloderm Select [id number] Allograft Regenerative Freeze Dried - [id number] Implanted:Qty: 1 on 01/21/2020 by Vandana Bergman MD at [facility] Left: Chest [employer] [id number] 09/13/2021 [id number] / / [id number] Allergan [employer] [id number] Alloderm Select [id number] Allograft Regenerative Freeze Dried - [id number] Implanted:Qty: 1 on 01/21/2020 by Vandana Bergman MD at [facility] Right: Chest [employer] [id number] 09/13/2021 [id number] / / [id number] Procedures Procedure Name Priority Date/Time Associated Diagnosis [...] HEMOGLOBIN A1C Routine 04/22/2024 9 :11 AM LOST AND FOUND CLERK Type 1 diabetes mellitus with hyperglycemia (HCC) EGFR Routine 02/11/2024 12:00 PM LOST AND FOUND CLERK Colicky RUQ abdominal pain HM DIABETES EYE EXAM Routine 01/19/2024 7:54 AM LOST AND FOUND CLERK ALBUMIN CREATININE RATIO, URINE Routine 10/24/2023 10:15 AM CDT Type 1 diabetes mellitus without complication (HCC) HEPATITIS C ANTIBODY Routine 10/22/2023 4:00 PM CDT Encounter for hepatitis C screening test for low risk patient THYROID FUNCTION CASCADE Routine 10/22/2023 4:00 PM CDT Type 1 diabetes mellitus without complication (HCC) COLONOSCOPY 05/09/2021 11:16 AM LOST AND FOUND CLERK SCREENING MAMMOGRAM BILATERAL W MAX Schedule Routine, Read Routine (OP Routine) 09/22/2019 10:12 AM CDT Encounter for screening mammogram for malignant neoplasm of breast from Last 3 Months or Most Recently Relevant to Health Maintenance Results * CARLYN ab ql w/rflx to CARLYN qn (07/05/2024 3:30 PM CDT) Pathologist [facility] CARLYN Negative Comment: Interpretive Data Normal range [...] last revised on 2019. Testing performed by: [facility], [address] [place] [address]., [address] Blood 07/05/2024 3:30 PM CDT 07/06/2024 10:10 AM CDT Katherine East NP LAB BLOOD ORDERABLES Final Resul t Performing Organization Address City/[facility] Co de Phone Number EDYTA [address] [employer] [place] [address] * Vitamin D 25 hydroxy (07/05/2024 3:30 PM CDT) Pathologist [facility] Vitamin D 25-OH 30 30 - 80 ng/mL Blood 07/05/2024 3:30 PM CDT 07/05/2024 9:56 PM CDT Katherine East NP LAB BLOOD ORDERABLES Final Resul t Performing Organization Address City/[facility]/ZIP Co de Phone Number EDYTA [phone] [employer] [place] [address] * (ABNORMAL) Erythrocyte sedimentation rate (07/05/2024 3:30 PM CDT) Pathologist [facility] Erythrocyte sedimentation rate 57(H) 1 - 20 mm/hr Comment:Testing performed by : [facility], [place], [address] Blood 07/05/2024 3:30 PM CDT 07/05/2024 7:15 PM CDT us Katherine East SUPERVISOR ROCKET PROPELLANT PLANT LAB BLOOD ORDERABLES Final Resul t Performing Organization Address City/[facility] Co de Phone Number EDYTA BOYD [address] [place] [address] * Rheumatoid factor (07/05/2024 3:30 PM CDT) Rheumatoid factor, quant <10 <=15 IUnits/mL Blood 07/05/2024 3:30 PM CDT 07/05/2024 9:56 PM CDT us Katherine East SUPERVISOR ROCKET [employer]LLANT [employer]ANT LAB BLOOD ORDERABLES Final Resul t Performing Organization Address [facility] de Phone Number EDYTA OLIVER [phone] [place] [address] * CRP (acute phase) (07/05/2024 3:30 PM CDT) CRP 3.3 <=10.0 mg/L Blood 07/05/2024 3:30 PM CDT 07/05/2024 9:56 PM CDT us Katherine East SUPERVISOR ROCKET [employer]LLANT [employer]ANT LAB BLOOD ORDERABLES Final Resul t Performing Organization Address [facility] de Phone Number EDYTA OLIVER [phone] [address] [facility] [place] [address] * Lipid panel (07/05/2024 3:30 PM CDT) [...] CDT 07/05/2024 9:56 PM CDT Katherine East SUPERVISOR ROCKET PROPELLANT PLANT LAB BLOOD ORDERABLES Final Resul t EDISONFILI [address] [place] [address] * (ABNORMAL) POCT hemoglobin A1c (04/22/2024 9:11 AM LOST AND FOUND CLERK) Hemoglobin A1C, POC 8.4 4.0 - 5.6 % Capillary blood 04/22/2024 9 :11 AM LOST AND FOUND CLERK Bethany DELACRUZ POINT OF CARE TEST ORDE RABLES Final Result * eGFR (02/11/2024 12:00 PM LOST AND FOUND CLERK) eGFR >90 >=60 mL/min/1. 73 m2 Comment: [...] reviewed 2021. Blood 02/11/2024 12:0 0 PM LOST AND FOUND CLERK 02/11/2024 7:54 PM LOST AND FOUND CLERK Whitney Matthews NP LAB BLOOD ORDERABLES Final R esult EDYTA BOYD [address] [employer] [place] [address] * DIABETES EYE EXAM (01/19/2024 7:54 AM LOST AND FOUND CLERK) Historical Provider HEALTH MAINTENANCE Final Result * [...] URINE ORDERABLES Final Resul t EDYTA BOYD [address] [employer] [place] [address] * Thyroid Function Latta (10/22/2023 4:00 PM CDT) TSH 1.97 0.30 - 4.20 mcIUnit/mL Blood 10/22/2023 4:00 PM CDT 10/22/2023 8:26 PM CDT us Katherine East NP LAB BLOOD ORDERABLES Final Resul t Performing Organization Address [facility] [place] [address] [address] [place] [address] * Hepatitis C antibody Blood (10/22/2023 4:00 [...] ORDER EULOGIO Final Result Performing Organization Address [facility] de Phone Number EDISONFILI BOYD [address] [address] [employer] [place] [address] * COLONOSCOPY (05/09/2021 11:16 AM LOST AND FOUND CLERK) Anatomical Region Laterality Modality Other Narrative Procedure Note Jhonathan Florez MD - 05/09/2021 11:16 AM CST [facility] Patient Name: Francie Conti Procedure Date: 05/09/2021 11:16 AM Date of : 1975 Admit Type: Outpatient Age: 45 Gender: Female Attending MD: Jhonathan Florez M.D. Room: [facility]COPY ROOM 1 Note Status: Finalized Patient [...] passed under direct vision.The Pediatric Colonoscope [id number] was introduced through the anus and advanced [...] 11:16 AM Procedure Code(s): --- Professional --- 85300, Colonoscopy, flexible; with biopsy, single or multiple Diagnosis Code(s): --- Professional --- K63.5, Polyp of colon R19.4, Change in bowel habit K59.04, Chronic idiopathic constipation CPT copyright 2019 [employer]. All rights reserved. The codes documented in this report are preliminary and upon physician coder reviewmay be revised to meet current compliance requirements. Recognized by the [employer] for promoting quality [...] mass, calcification, or architectural distortion. Frida Nogueira SUPERVISOR ROCKET [employer]LLANT PLANT IMG MAMMO PROCEDURES Final Re sult from Last 3 Months or Most Recently Relevant to Health Maintenance Insurance [facility] Advance Directives For more information, please contact: [phone] * Full Code (Latest Code Status on [...] 9:57 PM 01/23/2020 12:06 AM Care Teams Application Engineer Relationship Specialty Start Date End Date Katherine East NP [address] [address] PCP - General Family Medicine 10/22/23 Celestine Monroe, PT Physical Therapist Physical Therapy 10/20/17 Cherie Parker PTA Physical Therapist Physical Therapy 11/03/17 Frida Nogueira, SUPERVISOR ROCK[employer] 4 [facility] [address] [address] Nurse Practitioner Nurse Practitioner 10/22/23 Halina Treviño MD PhD [address] [phone] [place] [address] Surgeon Surgical Oncology 10/22/23
--- OUTSIDE RECORDS SUMMARY | 2024-08-09 09:14 | XMS_ITS | Clinical Summary ---
Author Organization [facility] [employer] Address [address] [place] [address] Care Team Providers Care Tape Machine Tailer Name Role Phone Kirit Cohen Primary Care Provider Source Comments [facility],non-owned Affiliates and Associated Physician Practices is amultiple site organization consisting of ambulatory clinics and hospital sitesin [place], [place], [place] and [place]. This disclosure is being madepursuant to the Care Everywhere program and may not contain all information available regarding this patient. Last updated 17.[facility] [employer] Allergies No known active allergies Medications * Be aware that medications may not be up to date on this document. Alwaysverify current medications with the patient. 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 Tray Casting Machine Operator (DEXCOM G6 PILOT CONTROL OPERATOR HELPER) RUSTY Dexcom G6 Tray Casting Machine Operator misc Active ibuprofen (MOTRIN) 200 MG [...] (09/06/2020): Added automatically from request for surgery [id number] Malignant neoplasm of female breast 02/03/2020 Overview (09/06/2020): Added automatically from request for surgery [id number] Ductal carcinoma in situ (DCIS) of left breast 1 Overview (09/06/2020): Added automatically from request for surgery [id number] Mixed hyperlipidemia 09/19/2017 Overview (09/06/2020): Last Assessment [...] CDT Gender Identity Female 01/30/2021 6:45 PM APPLIED EXERCISE PHYSIOLOGIST Sexual Orientation Not on file Last Filed Vital Signs Vital Sign Reading Time Taken Comments Blood Pressure 132/94 04/17/2021 7:34 AM APPLIED EXERCISE PHYSIOLOGIST Pulse 85 04/17/2021 7:34 AM APPLIED EXERCISE PHYSIOLOGIST Temperature - - Respiratory Rate - - Oxygen Saturation - - Inhaled Oxygen Concentration - - Weight 68.9 kg (152 lb) 04/17/2021 7:34 AM APPLIED EXERCISE PHYSIOLOGIST Height 160 cm (5' 3) 04/17/2021 7:34 AM APPLIED EXERCISE PHYSIOLOGIST Body Mass Index 26.93 04/17/2021 7:34 AM APPLIED EXERCISE PHYSIOLOGIST Plan of Treatment Health Maintenance Due Date [...] to complete this topic Insurance Care Teams Tape Machine Tailer Relationship Specialty Start Date End Date Nanney, Kirit, PA [address] [place] [address] PCP - General 11/23/18
--- OUTSIDE RECORDS SUMMARY | 2024-08-09 09:14 | XMS_ITS | Referral Summary ---
Author Organization [facility] Address [address] [place] [address] Care Team Providers Care Flotation Operator Name Role Phone Celestine Monroe PT Unavailable Unavaila ble Cherie Parker AD OPERATIONS INTERN Unavailable Unavailab Katherine Delvalle POWER MULE OPERATOR Primary Care Provider [phone] Frida Nogueira POWER MULE OPERATOR Unavailable [phone] Halina Treviño MD PhD Unavaila ble Encounters Date Type Department Care Team Description 08/04/2024 Telephone [facility] Specialists of [address] [address] Concepcion Balderrama MD Prior Auth (Dexcom G7) 08/03/2024 Telephone [facility] Diabetes and Endocrinology [address] [place] [phone] Concepcion Balderrama MD Prior Auth (Admelog) 07/08/2024 Orders Only [facility] Medical Group Primary Care at [address] [phone] Katherien East NP 07/07/2024 Results Follow-Up [facility] Medical Group Primary Care at [address] [phone] Katherine East NP Erythrocyte sedimentation rate, CRP (acute phase), Rheumatoid factor, Additional followed-up results: 3 07/06/2024 Orders Only [facility] Medical Group Primary Care at [address] [phone] Katherine East NP 07/06/2024 Telephone [facility] Primary Care at [address] [phone] Katherine East NP PA for Nexlizet 180-10MG tablets 07/05/2024 3:30 PM CDT - 07/05/2024 11:59 PM CDT Hospital Encounter [address] [address] Arthralgia of multiple joints; Vitamin D deficiency; Mixed hyperlipidemia Discharge Disposition: Discharge to home or self care 07/05/2024 3:30 PM CDT Lab [facility] Outpatient Lab at [address] [phone] 07/05/2024 3:00 PM CDT Office Visit [facility] Primary Care at [address] [phone] Katherine East NP Annual physical exam (Primary Dx); Mixed hyperlipidemia; Anxiety; Arthralgia of multiple joints; Vitamin D deficiency 07/01/2024 Telephone [facility] Specialists of [address] [address] Concepcion Balderrama MD 06/29/2024 Telephone [facility] Specialists of [address] [address] Concepcion Balderrama MD 05/20/2024 5:15 PM CLERICAL ADMINISTRATOR Office Visit [facility] at [address] [phone] Nathaniel Mcdowell NP Acute maxillary sinusitis, recurrence not specified (Primary Dx) from Last 3 Months Allergies No known active allergies Medications blood-glucose meter,continuous (Dexcom G6 Lead Project Manager) [facility] Dexcom G6 Lead Project Manager [facility] Active BD Insulin Syringe Ultra-Fine 0.5 mL 31 gauge x 5/16 syringe 07/08/19 Active blood glucose diagnostic (glucose blood) strip ComptTIATouch Ultra Test strips Active dasiglucagon (Zegalogue Autoinjector) [...] 03/19 Assessment & Plan (04/22/2024 9:59 AM CLERICAL ADMINISTRATOR): Chronic problem, not at goal. 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 On statin therapy, no changes. Assessment & Plan (01/21/2024 1:49 PM CLERICAL ADMINISTRATOR): Continue statin therapy Insulin pump in place 01/21/2024 Assessment & Plan (04/22/2024 9:57 AM CLERICAL ADMINISTRATOR): No pump setting changes. Assessment & Plan (01/21/2024 1:54 PM CLERICAL ADMINISTRATOR): Have long acting , basal insulin ( [...] 05/20/2023 Assessment & Plan (05/20/2023 5:54 PM CLERICAL ADMINISTRATOR): Refer to plastic surgery for eval Allergic rhinitis 05/20/2023 Assessment & Plan (05/20/2023 5:55 PM CLERICAL ADMINISTRATOR): Consider OTC antihistamine daily. Monitor for improvement Right wrist pain 05/20/2023 Assessment & Plan (05/20/2023 5:54 PM CLERICAL ADMINISTRATOR): Refer to Ortho Muscle strain 11/15/2022 Conjunctivitis [...] (07/20/2020): Added automatically from request for surgery [id number] Malignant neoplasm of female breast 02/03/2020 Overview (02/03/2020): Added automatically from request for surgery [id number] Assessment & Plan (10/22/2023 3:50 PM CDT): 2020 diagnosed, had double mastectomy. 1 more year of surveillance with Oncologist. Ductal carcinoma in situ of left breast 02/03/20 20 Overview (02/03/2020): Added automatically from request for surgery [id number] Ductal carcinoma in situ (DCIS) of left [...] UNCNTRL Assessment & Plan (01/21/2024 1:54 PM CLERICAL ADMINISTRATOR): Chronic, uncontrolled, worsening A1c 8.9% goal A1c [...] ago was 8.2. In need of new Care Tech. Referral placed and updated labs ordered. Assessment [...] on file Legal Sex Female 8:58 AM CLERICAL ADMINISTRATOR Gender Identity Not on file Sexual Orientation Not on file Last Filed Vital Signs Vital Sign Reading Time Taken Comments Blood Pressure 114/72 07/05/2024 3:03 PM CDT Pulse 119 07/05/2024 3:03 PM CDT Temperature 37.1 C (98.7 F) 07/05/2024 3:03 PM CDT Respiratory Rate 18 05/20/2024 5:25 PM CLERICAL ADMINISTRATOR Oxygen Saturation 95% 07/05/2024 3:03 PM CDT Inhaled Oxygen Concentration - - Weight 71.2 kg (157 lb) 07/05/2024 3:03 PM CDT Height 157.5 cm (5' 2.01) 07/05/2024 3:03 PM CD T Body Mass Index 28.71 07/05/2024 3:03 PM CDT Plan of Treatment Not on file Medical Devices Implanted Type Area Reclamation Supervisor Device Identifier Shelf Expiration Date Model / Serial / Lot Synovis Olapic Allian [id number] [place] Microvascular 3mm Ring Pin Protective Cover Jaw Assembly Latex Free - S0 - [id number] Implanted:Qty: 1 on 02/21/2020 by Jose Herrera MD at [facility] Clip Right: Breast Synovis Olapic Allian [id number] 10/13/2024 [id number] / 0 / [id number] Description:3.0 commercial real estate lender Synovis Olapic Allian [id number] [place] 2.5mm Ring Pin Ultrasonic Doppler 20mhz Human Resources Admin Anastomosis Latex Free - S0 - [id number] Implanted:Qty: 1 on 02/21/2020 by Vandana Bergman MD at [facility] Clip Left: Breast Synovis YOGITECHian [id number] 09/25/2024 [id number] / 0 / [id number] Davol Inc/C R Bard [id number] Phasix 8x6in Monofilament Scaffold Full Resorbable Rectangle Mesh - S0 - [id number] Implanted:Qty: 1 on 02/21/2020 by Vandana Bergman MD at [facility] Mesh Bilateral: Abdomen Davol Inc/C R Bard [id number] 04/13/2021 [id number] / 0 / [id number] Sientra Inc Allox2-14se Allox 14x11.2cm Smooth Surface Integrate Port Breast P6-7.3cm Mid - [id number] - [id number] Implanted:Qty: 1 on 01/21/2020 by Vandana Bergman MD at [facility] Right: Chest Sientra Inc 08/10/2024 ALLOX2-14S E / [id number] / Sientra Inc Allox2-Fh14se Allox2 14x12.9cm Smooth Surface Integrate Port Breast P6.1-7.3cm - [id number] - [id number] Implanted:Qty: 1 on 01/21/2020 by Vandana Bergman MD at [facility] [employer] Left: Chest Sientra Inc 09/20/2024 ALLOX2-FH1 4SE / [id number] / Allergan Usa Inc [id number] Alloderm Select [id number] Allograft Regenerative Freeze Dried - [id number] Implanted:Qty: 1 on 01/21/2020 by Vandana Bergman MD at [facility] [employer] Left: Chest Allergan Usa Inc [id number] 09/13/2021 [id number] / / [id number] Allergan Usa Inc [id number] Alloderm Select 61c41ph Allograft Regenerative Freeze Dried - [id number] Implanted:Qty: 1 on 01/21/2020 by Vandana Bergman MD at [facility] [employer] Right: Chest Allergan Usa Inc [id number] 09/13/2021 [id number] / / [id number] Procedures Procedure Name Priority Date/Time Associated Diagnosis [...] HEMOGLOBIN A1C Routine 04/22/2024 9 :11 AM CLERICAL ADMINISTRATOR Type 1 diabetes mellitus with hyperglycemia (HCC) EGFR Routine 02/11/2024 12:00 PM CLERICAL ADMINISTRATOR Colicky RUQ abdominal pain HM DIABETES EYE EXAM Routine 01/19/2024 7:54 AM CLERICAL ADMINISTRATOR ALBUMIN CREATININE RATIO, URINE Routine 10/24/2023 10:15 AM CDT Type 1 diabetes mellitus without complication (HCC) HEPATITIS C ANTIBODY Routine 10/22/2023 4:00 PM CDT Encounter for hepatitis C screening test for low risk patient THYROID FUNCTION CASCADE Routine 10/22/2023 4:00 PM CDT Type 1 diabetes mellitus without complication (HCC) COLONOSCOPY 05/09/2021 11:16 AM CLERICAL ADMINISTRATOR SCREENING MAMMOGRAM BILATERAL W MAX Schedule Routine, [...] revised on 2019. Testing performed by: [facility], [address] [facility], [place]., [address] Blood 07/05/2024 3:30 PM CDT 07/06/2024 10:10 AM CDT us Katherine East POWER MULE OPERATOR LAB BLOOD ORDERABLES Final Resul t EDISONFILI BOYD [address] [place] [address] * Vitamin D 25 hydroxy (07/05/2024 3:30 PM CDT) Vitamin D 25-OH 30 30 - 80 ng/mL Blood 07/05/2024 3:30 PM CDT 07/05/2024 9:56 PM CDT us Katherine East POWER MULE OPERATOR LAB BLOOD ORDERABLES Final Resul t Performing Organization Address [facility] Co de Phone Number EDYTA OLIVER [address] [place] [address] * (ABNORMAL) Erythrocyte sedimentation rate (07/05/2024 3:30 PM CDT) Pathologist [facility] Erythrocyte sedimentation rate 57(H) 1 - 20 mm/hr Comment:Testing performed by : [facility], [address] [facility], [place], [address] Blood 07/05/2024 3:30 PM CDT 07/05/2024 7:15 PM CDT us Katherine East POWER MULE OPERATOR LAB BLOOD ORDERABLES Final Resul t EDISONFILI BOYD [address] [place] [address] * Rheumatoid factor (07/05/2024 3:30 PM CDT) Rheumatoid factor, quant <10 <=15 IUnits/mL Blood 07/05/2024 3:30 PM CDT 07/05/2024 9:56 PM CDT us Katherine East POWER MULE OPERATOR LAB BLOOD ORDERABLES Final Resul t Performing Organization Address [facility] Co de Phone Number EDYTA BOYD [address] [place] [address] * CRP (acute phase) (07/05/2024 3:30 PM CDT) CRP 3.3 <=10.0 mg/L Blood 07/05/2024 3:30 PM CDT 07/05/2024 9:56 PM CDT us Katherine East POWER MULE OPERATOR LAB BLOOD ORDERABLES Final Resul t Performing Organization Address [facility] de Phone Number EDYTA BOYD [address] [place] [address] * Lipid panel (07/05/2024 3:30 PM CDT) [...] LAB BLOOD ORDERABLES Final Resul t EDYTA [address] [place] [address] * (ABNORMAL) POCT hemoglobin A1c (04/22/2024 9:11 AM CLERICAL ADMINISTRATOR) Hemoglobin A1C, POC 8.4 4.0 - 5.6 % Capillary blood 04/22/2024 9 :11 AM CLERICAL ADMINISTRATOR Bethany DELACRUZ POINT OF CARE TEST ORDE RABZELALEM Final Result * eGFR (02/11/2024 12:00 PM CLERICAL ADMINISTRATOR) eGFR >90 >=60 mL/min/1. 73 m2 Comment: [...] reviewed 2021. Blood 02/11/2024 12:0 0 PM CLERICAL ADMINISTRATOR 02/11/2024 7:54 PM CLERICAL ADMINISTRATOR Whitney Matthews POWER MULE OPERATOR LAB BLOOD ORDERABLES Final R esult Performing Organization Address [facility] Co de Phone Number EDYTA BOYD [address] [place] [address] * HM DIABETES EYE EXAM (01/19/2024 7:54 AM CLERICAL ADMINISTRATOR) Historical Provider HEALTH MAINTENANCE Final Result * [...] CDT 10/24/2023 3:48 PM CDT Katherine East POWER MULE OPERATOR LAB URINE ORDERABLES Final Resul t Performing Organization Address [facility] de Phone Number EDISONFILI BOYD [address] [place] [address] * Thyroid Function [place] (10/22/2023 4:00 PM CDT) TSH 1.97 0.30 - 4.20 mcIUnit/mL Blood 10/22/2023 4:00 PM CDT 10/22/2023 8:26 PM CDT Katherine East POWER MULE OPERATOR LAB BLOOD ORDERABLES Final Resul t Performing Organization Address [facility] Co de Phone Number EDISONFILI BOYD [address] [place] [address] * Hepatitis C antibody Blood (10/22/2023 4:00 [...] MICROBIOLOGY - GENERAL ORDER EULOGIO Final Result [facility] [address] [place] [address] * COLONOSCOPY (05/09/2021 11:16 AM CLERICAL ADMINISTRATOR) Anatomical Region Laterality Modality Other Narrative Procedure Note Jhonathan Florez MD - 05/09/2021 11:16 AM CST [facility] Patient Name: Francie Conti Procedure Date: 05/09/2021 11:16 AM Date of : 1975 Admit Type: Outpatient Age: 45 Gender: Female Attending MD: Jhonathan Florez M.D. Room: [facility] ENDOSCOPY ROOM 1 Note Status: Finalized Patient [...] passed under direct vision.The Pediatric Colonoscope [id number] was introduced through the anus and advanced [...] 11:16 AM Procedure Code(s): --- Professional --- 54307, Colonoscopy, flexible; with biopsy, single or multiple Diagnosis Code(s): --- Professional --- K63.5, Polyp of colon R19.4, Change in bowel habit K59.04, Chronic idiopathic constipation CPT copyright 2019 [employer]. All rights reserved. The codes documented in this report are preliminary and upon window dresser reviewmay be revised to meet current compliance requirements. Recognized by the [employer] Society for Gastrointestinal Endoscopy for promoting quality [...] Most Recently Relevant to Health Maintenance Insurance [facility] Advance Directives For more information, please contact: [phone] * Full Code (Latest Code Status on [...] 9:57 PM 01/23/2020 12:06 AM Care Teams Flotation Operator Relationship Specialty Start Date End Date Katherine East NP [address] [facility] [address] [place] [address] PCP - General Family Medicine 10/22/23 Celestine Monroe, PT Physical Therapist Physical Therapy 10/20/17 Cherie Parker, AD OPERATIONS INTERN Physical Therapist Physical Therapy 11/03/17 Frida Nogueira, POWER MULE OPERATOR [address] [place] [address] [address] [place] [address] Nurse Practitioner Nurse Practitioner 10/22/23 Halina Treviño MD PhD [id number] [place] [address] Surgeon Surgical Oncology 10/22/23
--- OUTSIDE RECORDS SUMMARY | 2024-08-09 09:14 | XMS_ITS | Encounter Summary ---
Author Organization [facility] Healthcare Address [address] [place] [address] Care Team Providers Care Customer Consultant Name Role Phone Celestine Monroe PT Unavailable Unavaila Cherie Stephenson TABLE GAMES SHIFT MANAGER Unavailable Unavailab Katherine Delvalle NP Primary Care Provider [phone] Frida Aburto NP Unavailable [phone] Halina Treviño MD PhD Unavaila ble Encounter Details Date Type Department Care Team (Latest Contact Info) Description 07/07/2024 Results Follow-Up [facility] Medical Group Primary Care at [place] [address] [place] [address] Katherine East NP [address] [facility] [address] [place] [address] Erythrocyte sedimentation rate, CRP (acute [...] on file Legal Sex Female 8:58 AM SUPERVISOR ANODIZING Gender Identity Not on file Sexual Orientation Not on file documented as of this encounter Plan of Treatment Not on file documented as of this encounter Visit Diagnoses Not on filedocumented in this encounter Care Teams Customer Consultant Relationship Specialty Start Date End Date Katherine East, LYRIC [address] [place] [address] PCP - General Family Medicine 10/22/23 Celestine Monroe, PT Physical Therapist Physical Therapy 10/20/17 Cherie Parker, TABLE GAMES SHIFT MANAGER Physical Therapist Physical Therapy 11/03/17 Frida Aburto COOPER APPRENTICE [address] [place] [address] [address] [place] [address] Nurse Practitioner Nurse Practitioner 10/22/23 Halina Treviño MD PhD [id number] [place] [address] Surgeon Surgical Oncology 10/22/23 documented as of this encounter
--- OUTSIDE RECORDS SUMMARY | 2024-08-09 09:14 | XMS_ITS ---
Author Organization [facility] Address [address] [place] [address] Care Team Providers Care Bloom Conveyor Operator Name Role Phone Celestine Monroe PT Unavailable Unavaila Cherie Stephenson BRAILLE TEACHER Unavailable Unavailab Katherine Delvalle NP Primary Care Provider [phone] Frida Aburto INTERNAL COMMUNICATIONS WRITER Unavailable [phone] Halina Treviño MD PhD Unavaila ble Active Problems Problem Noted Date Diagnosed Date Type 1 diabetes mellitus with hyperglycemia 03/19 Assessment & Plan (04/22/2024 9:59 AM WORKERS COMPENSATION ADMINISTRATOR): Chronic problem, not at goal. I emailed [employer] [facility] to help Francie get upgraded to G7 [...] 02/24/2024 Assessment & Plan (02/24/2024 11:21 AM WORKERS COMPENSATION ADMINISTRATOR): I do not appreciate any clear [...] 02/22/2024 Assessment & Plan (02/22/2024 11:57 PM WORKERS COMPENSATION ADMINISTRATOR): - Differential includes biliary colic, GERD, PUD, DM 1 associated gastroparesis, IBS - On meloxicam, recommend adding daily PPI or famotidine for gastric prophylaxis - Eat smaller frequent meals - Follow labs and abdominal ultrasound - Instructed to go the ED if progression of symptoms Hyperlipidemia due to type 1 diabetes mellitus 1 03/22/2023 Assessment & Plan (04/22/2024 9:57 AM WORKERS COMPENSATION ADMINISTRATOR): Chronic problem. On statin therapy, no changes. Assessment & Plan (01/21/2024 1:49 PM WORKERS COMPENSATION ADMINISTRATOR): Continue statin therapy Insulin pump in place 01/21/2024 Assessment & Plan (04/22/2024 9:57 AM WORKERS COMPENSATION ADMINISTRATOR): No pump setting changes. Assessment & Plan (01/21/2024 1:54 PM WORKERS COMPENSATION ADMINISTRATOR): Have long acting , basal insulin [...] 05/20/2023 Assessment & Plan (05/20/2023 5:54 PM WORKERS COMPENSATION ADMINISTRATOR): Refer to plastic surgery for eval Allergic rhinitis 05/20/2023 Assessment & Plan (05/20/2023 5:55 PM WORKERS COMPENSATION ADMINISTRATOR): Consider OTC antihistamine daily. Monitor for improvement Right wrist pain 05/20/2023 Assessment & Plan (05/20/2023 5:54 PM WORKERS COMPENSATION ADMINISTRATOR): Refer to Ortho Muscle strain 11/15/2022 [...] (07/20/2020): Added automatically from request for surgery [id number] Malignant neoplasm of female breast 02/03/2020 Overview (02/03/2020): Added automatically from request for surgery [id number] Assessment & Plan (10/22/2023 3:50 PM CDT): 2020 diagnosed, had double mastectomy. 1 more year of surveillance with Oncologist. Ductal carcinoma in situ of left breast 02/03/20 20 Overview (02/03/2020): Added automatically from request for surgery [id number] Ductal carcinoma in situ (DCIS) of left [...] UNCNTRL Assessment & Plan (01/21/2024 1:54 PM WORKERS COMPENSATION ADMINISTRATOR): Chronic, uncontrolled, worsening A1c 8.9% goal [...] ago was 8.2. In need of new Auto Hiker. Referral placed and updated labs ordered. Assessment [...]
[2024-08-09 09:19] LABS: Basophils Absolute Auto 0.1 K/mm3 (0.0-0.1); Basophils Percent Auto 0.6 % (0.2-1.2); Eosinophils Absolute Auto 0.1 K/mm3 (0-0.3); Eosinophils Percent Auto 0.8 % (0-4.4); Hematocrit 38.2 % (37.0-47.0); Hemoglobin 12.9 g/dL (12.0-15.0); Immature Granulocyte Absolute 0.07 K/mm3 (0.00-0.031); Immature Granulocyte Percent A 0.4 % (0-0.5); Lymphocytes Absolute Auto 2.35 K/mm3 (0.9-3.2); Lymphocytes Percent Auto 14.4 % (18.3-44.2); Mean Corpuscular HGB Conc 33.8 g/dl (32-36); Mean Corpuscular Hemoglobin 30.4 pg (26-34); Mean Corpuscular Volume 89.9 fl (80-100); Mean Platelet Volume 9.6 fl (7.4-10.4); Monocytes Absolute Auto 0.8 K/mm3 (0.1-0.6); Neutrophils Absolute Auto 12.8 K/mm3 (1.3-6.7); Neutrophils Percent Auto 78.8 % (45.5-73.1); Platelet Count Result 389 k/mm3 (150-375); Red Blood Count 4.25 M/mm3 (4.2-5.4); White Blood Count 16.3 K/mm3 (4.5-10.0)
[2024-08-09 09:23] LABS: Add Urine Microscopic? YES; Appearance Urine Turbid (Clear); Bacteria Urine None Seen /hpf; Bilirubin Urine Negative (Negative); Blood Urine 3+ (Negative); Color Urine Yellow (Yellow); Glucose Urine UA Trace mg/dL (Negative); Ketones Urine Trace mg/dL (Negative); Leukocyte Esterase Ur Negative LEU/UL (Negative); Nitrate Urine Negative (Negative); Non Pathogenic Casts 0-2; Protein Urine Negative (Negative); Specific Grav Ur 1.014 (1.001-1.035); Squamous Epithelial Cell Urine Occasional /hpf (Few); Urobilinogen Urine 0.2 mg/dL (<2.0); WBC Urine 0-5 /hpf (0-3); pH Urine 8.5 (5.0-9.0)
[2024-08-09 09:30] LABS: Alanine Aminotransferase 23 U/L (6-35); Albumin Level 4.1 g/dL (3.5-5.1); Alkaline Phosphatase 75 U/L (38-126); Anion Gap 8 mmol/L (4-12); Aspartate Amino Transferase 37 U/L (14-36); Bilirubin,Total 0.3 mg/dL (0.2-1.3); Blood Urea Nitrogen 9 mg/dL (7-17); Calcium 9.1 mg/dL (8.4-10.2); Carbon Dioxide 20 mmol/L (22-30); Chloride 109 mmol/L (98-107); Estimated CRCL calculation 96 ml/min; Estimated Glomerular Filt Rate > 60; Glucose 198 mg/dL (65-110); Lipase 185 U/L (23-300); Potassium 3.6 mmol/L (3.4-5.0); Sodium 137 mmol/L (137-145)
[2024-08-09] MEDS: ONDANSETRON INJ 4 MG/2 ML VIAL IV PUSH (09:30)
[2024-08-09] MEDS: SODIUM CHLORIDE 0.9% IV 1,000 ML 999 ML IV CONT ×2 (09:30→10:42)
[2024-08-09] MEDS: HALOPERIDOL LACTATE 5 MG/ML VIAL IM (11:13)
[2024-08-09 11:54] LABS: Beta-Hydroxybutyrate/Acetoacetate 0.18 mmol/L (0.02-0.27)
[2024-08-09 12:39] LABS: Influenza A QL RT-PCR Negative (Negative); Influenza B QL RT-PCR Negative (Negative); RSV RNA, RT-PCR Negative (Negative); SARS-CoV-2 RNA PCR Negative (Negative)
== END 2024-08-09 12:17 | disposition home or self-care (01) ==
PROVIDERS: Emergency Medicine; Emergency Provider Physician Assistant; PCP Internal Medicine Endocrinology, Diabetes & Metabolism
DX: K52.9 Noninfective gastroenteritis and colitis, unspecified (principal); Z20.822 Contact with and (suspected) exposure to COVID-19; E78.5 Hyperlipidemia, unspecified; E11.9 Type 2 diabetes mellitus without complications; F17.210 Nicotine dependence, cigarettes, uncomplicated; Z79.85 Long-term (current) use of injectable non-insulin antidiabetic drugs; Z79.899 Other long term (current) drug therapy; Z79.4 Long term (current) use of insulin
CPT/HCPCS: 36415; 80053; 81001; 81025; 82010; 82948; 83690; 85025; 87637; 96361; 96372; 96374; 99284; J1630; J2405; J7030

== ENCOUNTER 2024-09-20 14:20 | Emergency (ER) | payer OTHER, SELFPAY ==
--- OUTSIDE RECORDS SUMMARY | 2024-09-20 14:27 | XMS_ITS | Clinical Summary ---
Author Organization [facility] [employer] Address [address] [place] [address] Care Team Providers Care Strawhat Blocking Operator Name Role Phone Kirit Cohen Primary Care Provider [phone] [facility],non-owned Affiliates and Associated Physician Practices is amultiple site organization consisting of ambulatory clinics and hospital sitesin [place], [place], [place] and [place]. This disclosure is being madepursuant to the Care Everywhere program and may not contain all information available regarding this patient. Last updated 17.[facility] [employer] [facility] Allergies No known active allergies Medications * Be aware that medications may not be up to date on this document. Alwaysverify current medications with the patient. 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 Reed Fixer (DEXCOM G6 HUMAN RESOURCES EXECUTIVE) RUSTY Dexcom G6 Reed Fixer misc Active ibuprofen (MOTRIN) 200 MG tablet [...] (09/06/2020): Added automatically from request for surgery [id number] Malignant neoplasm of female breast 02/03/2020 Overview (09/06/2020): Added automatically from request for surgery [id number] Ductal carcinoma in situ (DCIS) of left breast 1 Overview (09/06/2020): Added automatically from request for surgery [id number] Mixed hyperlipidemia 09/19/2017 Overview (09/06/2020): Last Assessment [...] CDT Gender Identity Female 01/30/2021 6:45 PM STEEL CONSTRUCTION WORKER Sexual Orientation Not on file Last Filed Vital Signs Vital Sign Reading Time Taken Comments Blood Pressure 132/94 04/17/2021 7:34 AM STEEL CONSTRUCTION WORKER Pulse 85 04/17/2021 7:34 AM STEEL CONSTRUCTION WORKER Temperature - - Respiratory Rate - - Oxygen Saturation - - Inhaled Oxygen Concentration - - Weight 68.9 kg (152 lb) 04/17/2021 7:34 AM STEEL CONSTRUCTION WORKER Height 160 cm (5' 3) 04/17/2021 7:34 AM STEEL CONSTRUCTION WORKER Body Mass Index 26.93 04/17/2021 7:34 AM STEEL CONSTRUCTION WORKER Plan of Treatment Health Maintenance Due Date Last Done Comments COLOGUARD (AGES 45-75) - COLON CA SCREENING 1975 CT COLONOGRAPHY - COLON CA SCREENING 1975 FIT - COLON CA SCREENING 1975 FLEX SIG - COLON CA SCREENING 1975 HIV SCREENING 07/14/1991 HEPATITIS C SCREENING 07/09/1994 DIABETES-SERUM CREATININE 1994 DTAP/TDAP/TD VACCINES (1 - Tdap) 07/14/1995 HEPATITIS B VACCINE (1 of 3 - 19+ 3-dose series) 07/14/1995 PNEUMOCOCCAL VACCINE (1 of 2 - PCV) 07/14/1995 PAP SMEAR 1997 DIABETES-STATIN 2016 DIABETES RETINOPATHY SCREENING 11/03/2019 DIABETES-FOOT EXAM WITH MONOFILAMENT 11/03/2019 DIABETES-HGB A1C 08/21/2020 02/21/2020 COVID-19 VACCINE (2 - season) 2023 07/31/2020 DEPRESSION SCREENING 03/17/2024 DIABETES - URINE PROTEIN SCREENING 03/17/2024 INFLUENZA VACCINE (#1) 2024 , 01/26/2018, 01/13/2017, Additional history exists ZOSTER VACCINE (1 of 2) 2026 COLON MONITORING 05/09/2031 05/09/2021 COLONOSCOPY - COLON CA SCREENING 05/09/2031 05/09/2021 [...] to complete this topic Insurance Care Teams Strawhat Blocking Operator Relationship Specialty Start Date End Date Kirit Cohen PA [address] [place] [address] PCP - General 11/23/18
--- OUTSIDE RECORDS SUMMARY | 2024-09-20 14:27 | XMS_ITS | Data Portability ---
Author Organization [facility] [employer], Main Office Address [address] [place] [address] Assessment No assessment recorded. Plan of Treatment Reminders Order Date Submit Date Provider Last Modified By Organization Details Last Modified Time Details Appointments None recorded. Lab cortisol, am, serum 2022 023 [email or web address] Not available 13:11:15 dexamethas one, serum 2022 023 [email or web address] Not available 3 13:11:15 lipid panel, serum 2022 023 SULLY Not available 3 10:11:29 TSH + free T4, serum 2022 023 SULLY Not available 3 12:58:35 HbA1c (hemoglobi n A1c), blood 2022 023 SULLY Not available 3 10:11:32 CMP, serum or plasma 2022 023 SULLY Not available 3 10:11:30 Referral endocrinol ogy referral - used to see gloria crenshaw but leaving area. Eval and treat. [email or web address] - Endocrinology , [address], [place], [address], 3 07:57:10 Procedures None recorded. Surgeries None recorded. [facility] 2022 023 [facility] [address], [place], [address], 13:15:29 Medication Orders Nexletol 180 mg tablet 2022 023 [facility] #37112, [address], [place], [id number], 3 14:42:31 Gvoke HypoPen 2-Pack 1 mg/0.2 mL subcutaneo us auto-injec tor 2022 023 [facility] #36815, [address], [place], [id number], 14:41:00 Admelog U-100 Insulin lispro 100 unit/mL subcutaneo us solution 2022 023 [facility] #35204, [address] [place], [place], [id number], 3 14:41:29 sertraline 100 mg tablet 2022 023 [facility] #08702, [address] [place], [place], [id number], 3 11:37:09 alprazolam 0.5 mg tablet 2022 023 [email or web address] [facility] #93712, [address] [place], [place], [id number], 3 14:10:57 bempedoic acid 180 mg tablet 2022 023 [facility] #02614, [address], [place], [id number], 13:24:33 Admelog U-100 Insulin lispro 100 unit/mL subcutaneo us solution 2022 023 [facility] #56271, [address] [facility], [place], [place], [id number], 13:18:04 Patient TargetsNo targets recorded. Patient Instructions Encounter Date Encounter Id Patient Instructions Last Modified By Organization Details Last Modified Time 11/05/2022 [id number] FU in 6 mo for check up. [...] total 223 mg/dL <200 high Not Available [address], [address], 09/21/2022 10:11:29 09/21/19 23 09/21/2022 LIPID PANEL , STAND ERVIN HDL cholesterol 49 mg/dL > or = 50 low Not Available [address], [address], 09/21/2022 10:11:29 09/21/19 23 09/21/2022 LIPID PANEL , STAND ERVIN triglyceride s 88 mg/dL <150 normal Not Available [employer] [address], [address], 09/21/2022 10:11:29 09/21/19 23 09/21/2022 LIPID PANEL [...] lated using the Sugey n-Hop kins calcu lativan n, which is a valid ated novel metho d provi ding dat r accur acy than the Fried saira equat ion in the estim ation of LDL-C . Sugey n SS et al. NING. 2013; 310(1 9): 2061- 2068 (http ://ed ucati on.Qu Milton pascualIntelipost. com/f aq/FA Q164) Not Available [facility] [address] [address] [place], [address], 09/21/2022 10:11:29 09/21/19 23 09/21/2022 LIPID PANEL , STAND ERVIN chol/HDLC ratio 4.6 (calc ) <5.0 normal Not Available [facility] [address] [address] [address], [place], [address], 09/21/2022 10:11:29 09/21/19 23 09/21/2022 LIPID PANEL , STAND ERVIN non HDL cholesterol 174 mg/dL _(itzel c) <130 high For patie nts with diabe linda plus 1 major ASCVD risk facto r, treat ing to a non-H DL-C goal of <100 mg/dL (LDL- C of <70 mg/dL ) is consi marylu anaya n. Not Available [employer] [facility] [address] [address] [address], [place], [address], 09/21/2022 10:11:29 09/21/1909/21/2022 COMPR EHENS KB METAB OLIC PANEL glucose 150 mg/dL 65-99 high Fasti ng refer ence inter sven For someo ne witho ut known diabe linda, a gluco se value >125 mg/dL indic ates that they may have diabe linda and this shoul d be confi rmed with a follo w-up test. Not Available [facility] [address] [address] [address], [place], [address], 09/21/2022 10:11:30 09/21/19 23 09/21/2022 COMPR EHENS KB METAB OLIC PANEL urea nitrogen (BUN) 11 mg/dL 7-25 normal Not Available [address] [address] [place], [address], 09/21/2022 10:11:30 09/21/19 23 09/21/2022 COMPR EHENS KB METAB OLIC PANEL creatinine 0.66 mg/dL 0.50-0 .99 normal Not Available [address] [place], [address], 09/21/2022 10:11:30 09/21/19 23 09/21/2022 COMPR EHENS KB METAB OLIC PANEL eGFR 109 mL/mi n/1.7 3m2 > or = 60 normal The eGFR is based on the CKD-E PI 2020 equat ion. To calcu late the new eGFR from a previ ous Creat inine or Cysta tin C resul t, go to https ://matthew blevins.keily pascal/anai jean s/ kdoqi /gfr% 5Fcal culat or Not Available [address] [address] [place], [address], 09/21/2022 10:11:30 09/21/19 23 09/21/2022 COMPR EHENS KB METAB OLIC PANEL BUN/creatini ne ratio NOT APPLIC ABLE (calc ) 6-22 Not Available [address], [address], 09/21/2022 10:11:30 09/21/19 23 09/21/2022 COMPR EHENS KB METAB OLIC PANEL sodium 137 mmol/ L 135-14 6 normal Not Available [address], [address], 09/21/2022 10:11:30 09/21/19 23 09/21/2022 COMPR EHENS KB METAB OLIC PANEL potassium 4.6 mmol/ L 3.5-5. 3 normal Not Available [employer] [address] [address] [place], [address], 09/21/2022 10:11:30 09/21/19 23 09/21/2022 COMPR EHENS KB METAB OLIC PANEL chloride 104 mmol/ L 98-110 normal Not Available [address], [address], 09/21/2022 10:11:30 09/21/19 23 09/21/2022 COMPR EHENS KB METAB OLIC PANEL carbon dioxide 30 mmol/ L 20-32 normal Not Available [address], [address], 09/21/2022 10:11:30 09/21/19 23 09/21/2022 COMPR EHENS KB METAB OLIC PANEL calcium 9.0 mg/dL 8.6-10 .2 normal Not Available [address], [address], 09/21/2022 10:11:30 09/21/19 23 09/21/2022 COMPR EHENS KB METAB OLIC PANEL protein, total 6.7 g/dL 6.1-8. 1 normal Not Available [address], [address], 09/21/2022 10:11:30 09/21/19 23 09/21/2022 COMPR EHENS KB METAB OLIC PANEL albumin 4.0 g/dL 3.6-5. 1 normal Not Available [address], [address], 09/21/2022 10:11:30 09/21/19 23 09/21/2022 COMPR EHENS KB METAB OLIC PANEL globulin 2.7 g/dL_ (calc ) 1.9-3. 7 normal Not Available [address], [address], 09/21/2022 10:11:30 09/21/19 23 09/21/2022 COMPR EHENS KB METAB OLIC PANEL albumin/glob ulin ratio 1.5 (calc ) 1.0-2. 5 normal Not Available [address], [address], 09/21/2022 10:11:30 09/21/19 23 09/21/2022 COMPR EHENS KB METAB OLIC PANEL bilirubin, total 0.4 mg/dL 0.2-1. 2 normal Not Available [address], [address], 09/21/2022 10:11:30 09/21/19 23 09/21/2022 COMPR EHENS KB METAB OLIC PANEL alkaline phosphatase 58 U/L 31-125 normal Not Available [facility] [address], [address], 09/21/2022 10:11:30 09/21/19 23 09/21/2022 COMPR EHENS KB METAB OLIC PANEL AST 24 U/L 10-35 normal Not Available [address], [address], 09/21/2022 10:11:30 09/21/19 23 09/21/2022 COMPR EHENS KB METAB OLIC PANEL ALT 18 U/L 6-29 normal Not Available [address], [address], 09/21/2022 10:11:30 09/21/19 23 09/21/2022 T4, FREE T4, free 0.9 NG/dL 0.8-1. 8 normal Not Available [address], [address], 09/21/2022 10:11:31 09/21/19 23 09/21/2022 TSH TSH 1.38 mIU/L normal Refer ence Range > or = 20 Years 0.40- 4.50 Pregn katerina Range s First trime ster 0.26- 2.66 Secon d trime ster 0.55- 2.73 Third trime ster 0.43- 2.91 Not Available [address] [place], [address], 09/21/2022 10:11:31 09/21/19 23 09/21/2022 HEMOG LOBIN A1C hemoglobin A1C 7.8 %_of_ [...] diabe linda for child edgar. Not Available [address] [place], [address], 09/21/2022 10:11:32 12/21/19 23 12/21/2022 LIPID PANEL , STAND ERVIN cholesterol, total 186 mg/dL <200 normal Not Available [employer] [facility] [address] [address] [place], [address], 12/21/2022 07:04:52 12/21/1912/21/2022 LIPID PANEL , STAND ERVIN HDL cholesterol 51 mg/dL > or = 50 normal Not Available [employer] [facility] [address] [address] [place], [address], 12/21/2022 07:04:52 12/21/1912/21/2022 LIPID PANEL , STAND ERVIN triglyceride s 115 mg/dL <150 normal Not Available [employer] [facility] [address] [address] [place], [address], 12/21/2022 07:04:52 12/21/19 23 12/21/2022 LIPID PANEL [...] tompkins SS et al. NING. 2013; 310(1 3): 2061- 2068 (http ://ed ucati on.Qu flo.do. Shark Punch/f aq/FA Q164) Not Available [employer] [facility] [address] [place], [address], 12/21/2022 07:04:52 12/21/1912/21/2022 LIPID PANEL , STAND ERVIN chol/HDLC ratio 3.6 (calc ) <5.0 normal Not Available [employer] [facility] [address] [address] [facility] [place], [address], 12/21/2022 07:04:52 12/21/19 23 12/21/2022 LIPID PANEL , STAND ERVIN non HDL cholesterol 135 mg/dL _(itzel c) <130 high For patie nts with diabe linda plus 1 major ASCVD risk facto r, treat ing to a non-H DL-C goal of <100 mg/dL (LDL- C of <70 mg/dL ) is consi marylu mcclellan optio n. Not Available [employer] [facility] [address] [place], [address], 12/21/2022 07:04:52 12/21/19 23 12/21/2022 COMPR EHENS KB METAB OLIC PANEL glucose 89 mg/dL 65-99 normal Fasti ng refer ence inter sven Not Available [address], [address], 12/21/2022 07:04:52 12/21/1912/21/2022 COMPR EHENS KB METAB OLIC PANEL urea nitrogen (BUN) 12 mg/dL 7-25 normal Not Available [address], [address], 12/21/2022 07:04:52 12/21/1912/21/2022 COMPR EHENS KB METAB OLIC PANEL creatinine 0.76 mg/dL 0.50-0 .99 normal Not Available [address], [address], 12/21/2022 07:04:52 12/21/1912/21/2022 COMPR EHENS KB METAB OLIC PANEL eGFR 98 mL/mi n/1.7 3m2 > or = 60 normal Not Available [address], [address], 12/21/2022 07:04:52 12/21/1912/21/2022 COMPR EHENS KB METAB OLIC PANEL BUN/creatini ne ratio SEE NOTE: (calc ) 6-22 Not Repor rickey: BUN and Creat inine are withi n refer ence range . Not Available [address], [address], 12/21/2022 07:04:52 12/21/1912/21/2022 COMPR EHENS KB METAB OLIC PANEL sodium 139 mmol/ L 135-14 6 normal Not Available [address], [address], 12/21/2022 07:04:52 12/21/1912/21/2022 COMPR EHENS KB METAB OLIC PANEL potassium 4.3 mmol/ L 3.5-5. 3 normal Not Available [address], [address], 12/21/2022 07:04:52 12/21/1912/21/2022 COMPR EHENS KB METAB OLIC PANEL chloride 105 mmol/ L 98-110 normal Not Available [address], [address], 12/21/2022 07:04:52 12/21/1912/21/2022 COMPR EHENS KB METAB OLIC PANEL carbon dioxide 27 mmol/ L 20-32 normal Not Available [address], [address], 12/21/2022 07:04:52 12/21/1912/21/2022 COMPR EHENS KB METAB OLIC PANEL calcium 9.3 mg/dL 8.6-10 .2 normal Not Available [address], [address], 12/21/2022 07:04:52 12/21/1912/21/2022 COMPR EHENS KB METAB OLIC PANEL protein, total 6.9 g/dL 6.1-8. 1 normal Not Available [address], [address], 12/21/2022 07:04:52 12/21/1912/21/2022 COMPR EHENS KB METAB OLIC PANEL albumin 4.0 g/dL 3.6-5. 1 normal Not Available [address], [address], 12/21/2022 07:04:52 12/21/1912/21/2022 COMPR EHENS KB METAB OLIC PANEL globulin 2.9 g/dL_ (calc ) 1.9-3. 7 normal Not Available [address], [address], 12/21/2022 07:04:52 12/21/1912/21/2022 COMPR EHENS KB METAB OLIC PANEL albumin/glob ulin ratio 1.4 (calc ) 1.0-2. 5 normal Not Available [address], [address], 12/21/2022 07:04:52 12/21/19 23 12/21/2022 COMPR EHENS KB METAB OLIC PANEL bilirubin, total 0.3 mg/dL 0.2-1. 2 normal Not Available [address], [address], 12/21/2022 07:04:52 12/21/1912/21/2022 COMPR EHENS BK METAB OLIC PANEL alkaline phosphatase 55 U/L 31-125 normal Not Available [address], [address], 12/21/2022 07:04:52 12/21/1912/21/2022 COMPR EHENS KB METAB OLIC PANEL AST 35 U/L 10-35 normal Not Available [address], [address], 12/21/2022 07:04:52 12/21/1912/21/2022 COMPR EHENS KB METAB OLIC PANEL ALT 27 U/L 6-29 normal Not Available [address], [address], 12/21/2022 07:04:52 12/21/1912/21/2022 TSH+F REE T4 TSH 2.11 mIU/L normal Refer ence Range > or = 20 Years 0.40- 4.50 Pregn katerina Range s First trime ster 0.26- 2.66 Secon d trime ster 0.55- 2.73 Third trime ster 0.43- 2.91 Not Available [address], [address], 12/21/2022 07:04:53 12/21/1912/21/2022 TSH+F REE T4 T4, free 0.8 NG/dL 0.8-1. 8 normal Not Available [employer] [facility] [address] [place], [address], 12/21/2022 07:04:53 12/21/19 23 12/21/2022 HEMOG LOBIN A1C hemoglobin A1C 8.0 %_of_ total _HGB <5.7 high For someo ne witho ut known diabe linda, a hemog lobin A1c value of 6.5% or great er indic ates that they may have diabe linda and this shoul d be confi rmed with a follo w-up test. For somekeily ne with known diabe linda, a value [...] ntly, no conse nsus exist s regar ding use of hemog lobin A1c for diagn osis of diabe linda for child edgar. Not Available [employer] [facility] [address] [place], [address], 12/21/2022 07:04:53 11/30/19 22 XR, shoul master No observ ation record ed. [id number] [address] [facility] [address], [place], [address], 05/15/2022 18:37:40 11/30/19 22 XR, cervi itzel spine No observ ation record ed. [id number] Not Available 05/15/2022 18:37:40 12/21/19 23 12/20/2022 MAMMO , scree yee, digit al, bilat eral No observ ation record ed. [email or web address] [facility] [address], [place], [address], 12/24/2022 07:40:41 Result Notes None recorded. Problems Name Problem SNOMED Code Status Onset Date Resolution Date Notes Provider Name and Address Organization Details Recorded Time Pain of left shoulder joint 04092827051 354567 Active 2021 Not Available [facility] 3 18:36:33 Pain of left elbow joint 71469949508 995900 Active 2021 Not Available [facility] 3 18:36:33 Malignant tumor of breast 367857025 Active 2021 diagnosed 11/2019, mastectom y 01/2020 Not Available [facility] 3 18:36:33 Depressiv e disorder 73228577 Active 2021 Not Available [facility] 3 18:36:33 Dyslipide brennon 875390266 Active 2021 Not Available [facility] 3 18:36:33 Uncontrol led type 1 diabetes mellitus 923501113 Active 2021 Not Available [facility] 3 18:36:34 Type 1 diabetes mellitus 56040338 Active 2021 Not Available [facility] 3 18:36:34 Anxiety 09332084 Active 2021 Not Available [facility] 3 18:36:34 Hyperlipi demia 86222594 Active 2021 Not Available [facility] 3 18:36:34 Neck pain 21023480 Active 2021 Not Available [facility] 3 18:36:34 Paresthes ia of upper limb 14039482 Active 2021 Not Available [facility] 3 18:36:34 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 074781117 Active 2022 Gloria Crenshaw MD [address], [place], [address] , [facility] [employer] 3 13:07:37 Fracture of foot 99603572 Active 2022 Gloria Crenshaw MD [address], [place], [address] , [facility] [employer] [facility] 3 13:08:25 Conjuncti vitis 2905522 Active 2022 Silvia Leon NP [address] [facility], [address] [address], [place], [address] , [facility] 3 09:40:26 Muscle strain 95752416 Active 2022 Silvia Leon NP [address] [facility], [facility] [address], [place], [address] , [facility] [employer] [facility] 3 11:56:12 Problem Notes Documentation Provider Name and Address Organization Details Recorded Time Endocrinology Consult Note : [facility] [address], [facility] [id number], Lisa A (id #[id number], : 1975) Documents sent via fax will [...] received this fax in error, please visit [email or web address] to notify the sender and confirm that the information will be destroyed. If you do not have internet access, please call to notify the sender and confirm that the information will be destroyed. Thank you for your attention and cooperation. [ID:[id number]][facility] [employer] [address] [place] [address] , Date: 12/24/2022RE: Francie Conti, : 1975, PT ID #[id number] Leon [facility], I would like to thank you for [...] FU ON LABS 12/24/2022 - 01:15PM - [facility] Kaylyn Mon Problems:Reviewed Problems Malignant tumor of [...] 0.5 mL 31 gauge x 07/1610 filled [id number] buPROPion HCL XL 300 mg 24 hr tablet, extended releaseTAKE 1 TABLET BY MOUTH EVERY DAY11/30/22 filled surescripts Dexcom G6 Sensor zodlox14/07/23 filled surescripts Dexcom G6 Transmitter uzyoag09/10/23 filled surescripts Gvoke HypoPen 2-Pack 1 mg/0.2 mL subcutaneous auto-injectorInject 1 mg as needed by subcutaneous route as needed for 1 day.12/24/22 prescribed Gloria Crenshaw MD Nexletol 180 mg tabletTAKE 1 TABLET BY MOUTH EVERY DAY IN THE CVEKQPS04/10/23 prescribed Gloria Crenshaw MD OneTouch Ultra Test stripsUSE TO TEST 4 TIMES A DAY07/09/21 filled [id number].[id number] sertraline 100 mg tabletTake 1 tablet(s) every [...] CodeDo you have a medical power of patent attorney?: NoIs blood transfusion acceptable in an [...] minutes, on average, do you exercise?: (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 Refill dexcom as she is compliant with use and has no issues with accuracy. Send for Gvoke for hypoglycemia rescue if needed.E13.9: Other specified diabetes mellitus without complications DEXCOM G6 SENSOR DEVICE - change sensor every 10 days x 90 days Qty: 9 Units Refills: 8 Supplier: [facility] #[id number] DEXCOM G6 TRANSMITTER DEVICE - change transmitter every 90 days Qty: 1 Unit Refills: 3 Supplier: [facility] [facility] #[id number] Gvoke HypoPen 2-Pack 1 mg/0.2 mL subcutaneous auto-injector - Inject 1 mg as needed by subcutaneous route as needed for 1 day. Qty: (2) 0.2 mL syringe Refills: 2 Pharmacy: [email or web address] #[id number] Admelog U-100 Insulin lispro 100 unit/mL subcutaneous solution - INJECT UP TO 80 UNITS EVERY DAY VIA INSULIN PUMP. Qty: (4) 10 mL vial Refills: 3 GAYATHRI: Y Pharmacy: [facility] #[id number] 2. Dyslipidemia-LDL down from 137 mg/dL to [...] his/her PCP can refer patient to another physical security engineer in the area. All questions /concerns answered and refills necessary at visit today.E78.5: Hyperlipidemia, unspecified Nexletol 180 mg tablet - TAKE 1 TABLET BY MOUTH EVERY DAY IN THE MORNING Qty: (90) tablet Refills: 4 Pharmacy: [facility] #[id number] Return to Office Silvia Leon NP for Follow Up 30 at [facility] on 05/08/2023 at 10:00 AM Silvia Leon NP [address] [place] [address], [address], [facility] [employer] 12/24/2022 19:41:38 Procedures Surgical History Date Name Laterality Status Provider Name and Address Organization Details Recorded Time 10/16/19 22 Date of Last Pap Smear completed Silvia Smith RN [employer] 11/05/2022 11:20:43 03/17/19 21 Date of Last Colonoscopy completed Not Available [facility] 05/15/2022 18:35:39 excision of bilateral breasts completed Not Available [facility] 05/15/2022 18:35:39 Imaging Results None recorded. Procedure [...] completed Not Available Not Available Not Available [employer] Test strips USE TO TEST 4 TIMES A DAY active Not Available Not Available No t Available Kenalog 10 mg/mL suspension for injection In office injection administe red by the provider 02/26 completed [facility]: [id number] [phone] Not Available Not [...] Updated DateTime 3 160.02 cm 28.3 kg/m2 42044.0 6 g 18 /min 97.8 [degF] 94 /min 128/85 mm[Hg] Nasima RiveraMOISES makiCaryn [facility] [employer] [facility] 3 12:49:18 Date Recorded Body height Body mass index (BMI) Body weight Body temperature Heart rate Respiratory rate Oxygen saturation Oxygen saturation in Arterial blood by Pulse oximetry Systolic And Diastolic Provider Name and Address Organization Details Last Updated DateTime 3 160.02 cm 28.2 kg/m2 79871.6 4 g 96.9 [degF] 99 /min 16 /min 99 % 99 % 112/76 mm[Hg] Silvia Smith RN [facility] [employer] [facility] 3 11:17:47 Date Recorded Body mass index (BMI) Body height Body weight Provider Name and Address Organization Details Last Updated DateTime 11/29/2021 27.5 kg/m2 160.02 cm 64171.82 g Not Available [facility] 05/15/2022 18:36:21 Date Recorded Body height Body mass index (BMI) Body weight Body temperature Respiratory rate Heart rate Systolic And Diastolic Provider Name and Address Organization Details Last Updated DateTime 3 160.02 cm 28.9 kg/m2 67410.5 6 g 98.4 [degF] 16 /min 100 /min 117/86 mm[Hg] Vandana Grimes RN [facility] [employer] [facility] 3 14:13:10 Date Recorded Body mass index (BMI) Body height Oxygen saturation Oxygen saturation in Arterial blood by Pulse oximetry Heart rate Respiratory rate Body temperature Body weight Systolic And Diastolic Provider Name and Address Organization Details Last Updated DateTime 2 27.7 kg/m2 160.02 cm 98 % 98 % 100 /min 16 /min 98.4 [degF] 02879.1 1 g 120/74 mm[Hg] Not Available [facility] 3 18:36:20 Social History Question Answer Notes LastModified by Organizat ion Details LastModified Time Tobacco Smoking Status Current Every Day Smoker Silvia Smith RN [facility], [facility] [employer] [facility] 11/05/2022 11:12:58 Do You Have An Advance Directive? No [id number] Information not available 05/15/2022 Is Blood Transfusion Acceptable In An Emergency? Yes Information not available 11/05/2022 What Is Your Level Of Caffeine Consumption? Occasional [id number] Information not available 05/15/2022 What Is Your [...] Type Of Diet Are You Following? REGULAR [id number] Information not available 05/15/2022 Which Illicit Or Recreational Drugs Have You Used? [place] Daily Information not available 11/05/2022 What Is The Highest Grade Or Level Of School You Have Completed Or The Highest Degree You Have Received? [id number] Information not available 11/05/2022 How Many Days [...] Do You Have A Medical Power Of Car Tracer? No Information not available 11/05/2022 Do You Have Any Pets? Yes Information not available 11/05/2022 What Is Your Relationship Status? Domestic Partner [id number] Information not available 05/15/2022 Do You Use [...] Functional Status Question Answer Note LastModified by [employer] ion Details LastModified Time Do you use any illicit or recreational drugs? Yes Information not available 11/05/2022 Do you or have you ever used any other forms of tobacco or nicotine? No Information not available 11/05/2022 What is your level of alcohol consumption? None past history of alcholism, sober since 2014 [id number] Information not available 05/15/2022 Are you currently employed? Yes Information not available 11/05/2022 What is your exercise level? Moderate [id number] Information not available 05/15/2022 Mental Status Question Answer Note LastModified by Organization D etails LastModified Time Do you feel stressed (tense, restless, nervous, or anxious, or unable to sleep at night)? [id number] Information not available 11/05/2022 Family History Relationship Description Onset Age of this Age Resolved Age Notes LastModified by Organization Details LastModified Time Father Alcoholism [id number] Not available 05/15/2022 18:35:41 Father Type 2 diabetes mellitus [id number] Not available 05/15/2022 18:35:41 Medical History Condition Response BLINDNESS N RHEUMATIC FEVER N KIDNEY STONES Y BLADDER PROBLEMS N MRSA N OTHER # 1 N POLIO N LUNG DISEASE/DISORDER N HISTORY OF DRUG ABUSE N RADIATION / CHEMOTHERAPY N COPD N Other # 2 N BLOOD DISEASES N SURGERY N EAR OR HEARING PROBLEMS N MUMPS N SHINGLES N BOWEL PROBLEMS Y FEMALE PROBLEMS / INFECTIONS N DEPRESSION (INCLUDING POST ) Y STROKE/TIA N THYROID DISEASE N ULCERS N BENIGN PROSTATIC HYPERPLASIA N MEASLES N CERVICALGIA N HYPOTENSION N TB SKIN TEST N MYOCARDIAL INFARCTION N PARAPELGIA N OBESITY [...] GLAUCOMA N FOOT PROBLEM N DIVERTICULITIS N CHICKENPOX N SLEEP APNEA N ALLERGIES/HAYFEVER N INFECTIOUS DISEASE N HEART ARRHYTHMIA N PROSTATE N INSOMNIA N HIGH CHOLESTEROL / HYPERLIPIDEMIA N HYPERTHYROIDISM N EYE PROBLEMS N EATING DISORDER N EDEMA N CHRONIC PAIN SYNDROME N CONSTIPATION N CAROTID BLOCKAGE N BACK / NECK PROBLEMS Y HAVE YOU BEEN HOSPITALIZED OR SEEN IN [facility] IN THE PAST YEAR ? N [...] N PAIN N HERPES N DEMENTIA N HEADACHES/MIGRAINES N SEIZURES/EPILEPSY N VASCULAR DISEASE N PACEMAKER N DIZZINESS N HEART DISEASE/HEART PROBLEMS N KIDNEY DISEASE N DEVELOPMENTAL OR BEHAVIORAL DISORDERS N MULTIPLE SCLEROSIS N SCARLET FEVER N MENTAL DISORDER/ILLNESS N CARDIAC ARRHYTHMIA N CANCER: SPECIFY Y PNEUMONIA N ATRIAL FIBRILLATION N Gall Stones N PULMONARY EMBOLISM N AUTOIMMUNE DISEASE N [...] SNOMED-CT Code Diagnosis ICD10 Code Diagnosis Note [id number] Kraig Rutherford MD [address] [address] 07/09/2021 00:00:00 07/09/2021 15:21:07 [id number] S_Histor ic_[facility] Endo [facility] [address] [place] [address] 11/05/2021 00:00:00 11/05/2021 13:11:01 [id number] Silvia Leon NP [address] [address] 11/06/2021 00:00:00 11/06/2021 10:25:52 [id number] Pankaj Wilder MD [facility] Orth[facility] [address] [place] [address] 11/29/2021 00:00:00 11/29/2021 13:40:27 [id number] Kraig Rutherford MD [address] [address] 02/26/2022 00:00:00 02/26/2022 13:55:34 [id number] Gloria Crenshaw MD [facility] Endo M[facility] [address] [place] [address] 07/02/2022 12:38:57 07/02/2022 13:13:38 Latent autoimmune diabetes mellitus in adult 253712014 E13.9 a1c of 8%- struggling with hyperglyce [...] 1:8 target 100 mg/dL Fracture of foot 8525200 5 S92.901A Will send for low dose dexa suppressio n testing to screen for hypercorti solic state. Send for bone density scan as she was told she has osteoporos is based on x rays of feet from recent fracture. Dyslipidemia [id number] E 78.5 LDL over 100 mg/dL- she [...] she chooses to go outside of the [facility] to obtain labwork she was [...] in her case. She voiced understand ing. [id number] Silvia Leon NP [facility] [address] [address] 11/05/2022 11:00:15 11/05/2022 11:47:27 Hyperlipidemia 03578359 E78.5 Nexletol 180 mg po daily in the AM.Statins give leg cramps.Dr. Crenshaw dosing Type 1 cheryl betes mellitus 71563978 E10.[address] Gloria Crenshaw.Admel og U-100 80 units insulin pumpDexcom [id number] e Anxiety 49674294 F41.9 Sertraline 50 mg po daily, increase to 100 mg po daily.Bupr opion HCL XL 300 mg po daily.Holmes al anxiety appt 12/06/22 Tobacco user 011166706 Z 72.0 Cessation encouraged and recommende d. Bupropion not helping. [id number] Gloria Crenshaw MD [facility] Endo Dwight Mon [address] [place] [address] 12/24/2022 14:01:47 12/24/2022 15:19:01 Latent autoimmune diabetes mellitus in adult 380229729 E13.9 a1c of 8%- struggling with hyperglyce brenonn in the early to late evening due [...] for hypoglycem ia rescue if needed. Dyslipidemia 777922212 E 78.5 LDL down from 137 mg/dL [...] Concerns Section Related Observation LastModified by Organization Detai ls LastModified Time None Recorded Concern Status LastModified by Organization Details LastModified Time None Recorded Advance Directives Directive N: Payers Insurance Date Sequence Insurance Name Policy Number Policy Boateng Covered Member ID Boateng Member ID Guarantor Name 02/24/2023 1 [facility] - DOS ON OR AFTER 20 (MEDICAID REPLACEMENT - HMO) Francie Conti [id number] Francie Conti Notes Date Note Type Note Provider Name [...] normalcpeptide 0.17 ng/mL211/83/57/136 Gloria Crenshaw MD [address] [facility], [place] [address], [place], [address], [facility] [employer] [facility] 07/02/2022 13:26:40 11/05/2022 text/html Here for check [...] cause. Tobacco use- not able to stop. Silvia Leon NP [address], [place], [address], [employer] 11/05/2022 11:45:27 12/24/2022 text/html 47 yo female [...] mg/dLCr normalLFT normal Gloria Crenshaw MD [address], [facility] [address], [place], [address], [employer] 12/24/2022 15:25:51 OBGyn Episode No OBEpisode recorded.
--- OUTSIDE RECORDS SUMMARY | 2024-09-20 14:27 | XMS_ITS | Encounter Summary ---
Author Organization [facility] Healthcare Address [address] [place] [address] Care Team Providers Care Cpas Name Role Phone Celestine Monroe PT Unavailable Unavaila Cherie Stephenson PTA Unavailable Unavailab Katherine Delvalle PACKAGE DYEING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 Primary Care Provider [phone] Frida Aburto PACKAGE DYEING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 Unavailable [phone] Halina Treviño MD PhD Unavaila ble Encounter Details Date Type Department Care Team (Late st Contact Info) Description 09/20/2024 Telephone [facility] Medical Group Gastroenterology at [address] [place] [address] Magdalena Leonard MA Social History Tobacco Use Types Packs/Day Years Used Date Smoking Tobacco: Every Day Cigarettes 0.3 42.5 Started: 03/17/1982 Smokeless Tobacco: Never Alcohol Use [...] on file Legal Sex Female 8:58 AM CATEGORY MANAGER Gender Identity Not on file Sexual Orientation Not on file documented as of this encounter Miscellaneous Notes * Telephone Encounter - Magdalena Leonard MA - 09/20/2024 8:50 AM CDT Patient called the office pertaining to her ongoing symptoms of nausea and vomiting. Patient wanteda sooner appointment or a scope. Patient was made aware that Gildardo will be out on maternity leave and is booked for new patient appointments until February. Patient was made aware to have PCP send over a new referral with her current ongoing symptoms for a scope. Patient verbally understood. documented in this encounter Plan of Treatment Not on file documented as of this encounter Visit Diagnoses Not on filedocumented in this encounter Care Teams Cpas Relationship Specialty Start Date End Date Katherine East NP [address] [facility] [address] [place] [address] PCP - General Family Medicine 10/22/23 Celestine Monroe, PT Physical Therapist Physical Therapy 10/20/17 Cherie Parker, MARKET RESEARCH INTERVIEWER Physical Therapist Physical Therapy 11/03/17 Frida Aburto, PACKAGE DYEING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 [address] [place] [address] [address] [place] [address] Nurse Practitioner Nurse Practitioner 10/22/23 Halina Treviño MD PhD [id number] [place] [address] Surgeon Surgical Oncology 10/22/23 documented as of this encounter
--- OUTSIDE RECORDS SUMMARY | 2024-09-20 14:28 | XMS_ITS ---
Author Organization [facility] Address [address] [place] [address] Care Team Providers Care Media Production Manager Name Role Phone Celestine Monroe PT Unavailable Unavaila Cherie Stephenson [employer] Unavailable Unavailab Katherine Delvalle NP Primary Care Provider [phone] Frida Aburto AUDITOR MEDICAL CLAIMS Unavailable [phone] Halina Treviño MD PhD Unavaila ble Active Problems Problem Noted Date Diagnosed Date Type 1 diabetes mellitus with hyperglycemia 03/19 Assessment & Plan (04/22/2024 9:59 AM PIPE FITTER SOFT COPPER): Chronic problem, not at goal. I emailed [facility] to help Francie get upgraded to G7 [...] 02/24/2024 Assessment & Plan (02/24/2024 11:21 AM PIPE FITTER SOFT COPPER): I do not appreciate any clear fascial [...] 02/22/2024 Assessment & Plan (02/22/2024 11:57 PM PIPE FITTER SOFT COPPER): - Differential includes biliary colic, GERD, PUD, DM 1 associated gastroparesis, IBS - On meloxicam, recommend adding daily PPI or famotidine for gastric prophylaxis - Eat smaller frequent meals - Follow labs and abdominal ultrasound - Instructed to go the ED if progression of symptoms Hyperlipidemia due to type 1 diabetes mellitus 1 03/22/2023 Assessment & Plan (04/22/2024 9:57 AM PIPE FITTER SOFT COPPER): Chronic problem. On statin therapy, no changes. Assessment & Plan (01/21/2024 1:49 PM PIPE FITTER SOFT COPPER): Continue statin therapy Insulin pump in place 01/21/2024 Assessment & Plan (04/22/2024 9:57 AM PIPE FITTER SOFT COPPER): No pump setting changes. Assessment & Plan (01/21/2024 1:54 PM PIPE FITTER SOFT COPPER): Have long acting , basal insulin ( [...] 05/20/2023 Assessment & Plan (05/20/2023 5:54 PM PIPE FITTER SOFT COPPER): Refer to plastic surgery for eval Allergic rhinitis 05/20/2023 Assessment & Plan (05/20/2023 5:55 PM PIPE FITTER SOFT COPPER): Consider OTC antihistamine daily. Monitor for improvement Right wrist pain 05/20/2023 Assessment & Plan (05/20/2023 5:54 PM PIPE FITTER SOFT COPPER): Refer to Ortho Muscle strain 11/15/2022 Conjunctivitis [...] (07/20/2020): Added automatically from request for surgery [id number] Malignant neoplasm of female breast 02/03/2020 Overview (02/03/2020): Added automatically from request for surgery [id number] Assessment & Plan (10/22/2023 3:50 PM CDT): 2020 diagnosed, had double mastectomy. 1 more year of surveillance with Oncologist. Ductal carcinoma in situ of left breast 02/03/20 20 Overview (02/03/2020): Added automatically from request for surgery [id number] Ductal carcinoma in situ (DCIS) of left [...] UNCNTRL Assessment & Plan (01/21/2024 1:54 PM PIPE FITTER SOFT COPPER): Chronic, uncontrolled, worsening A1c 8.9% goal A1c [...] ago was 8.2. In need of new Laboratory Sampler. Referral placed and updated labs ordered. Assessment [...]
--- OUTSIDE RECORDS SUMMARY | 2024-09-20 14:28 | XMS_ITS | Clinical Summary ---
Author Organization [facility] Address [address] [place] [address] Care Team Providers Care It Portfolio Manager Name Role Phone Celestine Monroe PT Unavailable Unavaila Cherie Stephenson PRECISION ASSEMBLER BENCH Unavailable Unavailab Katherine Delvalle VENDING MACHINE FILLER Primary Care Provider [phone] Frida Nogueira VENDING MACHINE FILLER Unavailable [phone] Halina Treviño MD PhD Unavaila ble Allergies No known active allergies Medications blood-glucose meter,continuous (Dexcom G6 Powder Cutting Operator) misc Dexcom G6 Powder Cutting Operator misc Active BD Insulin Syringe Ultra-Fine 0.5 [...] daily 40 mL 6 06/30/19 25 Active buPROPion SR (ZYBAN) 150 mg [...] daily 90 tablet 1 07/07/19 25 Active Dexcom G7 Sensor deviceIndications :Type 1 diabetes mellitus with hyperglycemia (HCC),Insulin pump in place,Type 1 diabetes mellitus without complication (HCC) Change sensor every 10 days 3 each 2 09/14/19 25 Active Dexcom G7 Sensor deviceIndications :Type 1 diabetes mellitus with hyperglycemia (HCC),Insulin pump in place,Type 1 diabetes mellitus without complication (HCC) Change sensor every 10 days 3 each 2 07/02/19 25 025 Discontin ued(Reord er) Active Problems Problem Noted Date Diagnosed Date Type 1 diabetes mellitus with hyperglycemia 03/19 Assessment & Plan (04/22/2024 9:59 AM X RAY INSPECTOR): Chronic problem, not at goal. I emailed [employer] to help Francie get upgraded to G7 [...] 02/24/2024 Assessment & Plan (02/24/2024 11:21 AM X RAY INSPECTOR): I do not appreciate any clear fascial [...] 02/22/2024 Assessment & Plan (02/22/2024 11:57 PM X RAY INSPECTOR): - Differential includes biliary colic, GERD, PUD, DM 1 associated gastroparesis, IBS - On meloxicam, recommend adding daily PPI or famotidine for gastric prophylaxis - Eat smaller frequent meals - Follow labs and abdominal ultrasound - Instructed to go the ED if progression of symptoms Hyperlipidemia due to type 1 diabetes mellitus 1 03/22/2023 Assessment & Plan (04/22/2024 9:57 AM X RAY INSPECTOR): Chronic problem. On statin therapy, no changes. Assessment & Plan (01/21/2024 1:49 PM X RAY INSPECTOR): Continue statin therapy Insulin pump in place 01/21/2024 Assessment & Plan (04/22/2024 9:57 AM X RAY INSPECTOR): No pump setting changes. Assessment & Plan (01/21/2024 1:54 PM X RAY INSPECTOR): Have long acting , basal insulin ( [...] 05/20/2023 Assessment & Plan (05/20/2023 5:54 PM X RAY INSPECTOR): Refer to plastic surgery for eval Allergic rhinitis 05/20/2023 Assessment & Plan (05/20/2023 5:55 PM X RAY INSPECTOR): Consider OTC antihistamine daily. Monitor for improvement Right wrist pain 05/20/2023 Assessment & Plan (05/20/2023 5:54 PM X RAY INSPECTOR): Refer to Ortho Muscle strain 11/15/2022 Conjunctivitis [...] (07/20/2020): Added automatically from request for surgery [id number] Malignant neoplasm of female breast 02/03/2020 Overview (02/03/2020): Added automatically from request for surgery [id number] Assessment & Plan (10/22/2023 3:50 PM CDT): 2020 diagnosed, had double mastectomy. 1 more year of surveillance with Oncologist. Ductal carcinoma in situ of left breast 02/03/20 20 Overview (02/03/2020): Added automatically from request for surgery [id number] Ductal carcinoma in situ (DCIS) of left [...] UNCNTRL Assessment & Plan (01/21/2024 1:54 PM X RAY INSPECTOR): Chronic, uncontrolled, worsening A1c 8.9% goal A1c [...] ago was 8.2. In need of new Cookie Mixer Helper. Referral placed and updated labs ordered. Assessment [...] Encounters Date Type Department Care Team Description 09/20/2024 Telephone [facility] at [address] [place] [phone] Magdalena Leonard MA 08/04/2024 Telephone [facility] [address] [facility] [address] [place] [address] Concepcion Balderrama MD Prior Auth (Dexcom G7) 08/03/2024 Telephone [facility] [address] [place] [phone] Concepcion Balderrama MD Prior Auth (Admelog) 07/08/2024 Orders Only [facility] at [address] [phone] Katherine East NP 07/07/2024 Results Follow-Up [facility] at [address] [phone] Katherine East, LYRIC Erythrocyte sedimentation rate, CRP (acute phase), Rheumatoid factor, Additional followed-up results: 3 07/06/2024 Orders Only [facility] at [address] [phone] Katherine East, LYRIC 07/06/2024 Telephone [facility] at [address] [phone] Katherine East NP PA for Nexlizet 180-10MG tablets 07/05/2024 3:30 PM CDT - 07/05/2024 11:59 PM CDT Hospital Encounter [facility] [address] [place] [address] Arthralgia of multiple joints; Vitamin D deficiency; Mixed hyperlipidemia Discharge Disposition: Discharge to home or self care 07/05/2024 3:30 PM CDT Lab [facility] at [address] [phone] 07/05/2024 3:00 PM CDT Office Visit [facility] at [address] [phone] Katherine East NP Annual physical exam (Primary Dx); Mixed hyperlipidemia; Anxiety; Arthralgia of multiple joints; Vitamin D deficiency 07/01/2024 Telephone [facility] of [address] [address] Concepcion Balderrama MD 06/29/2024 Telephone [facility] [address] [address] Concepcion Balderrama MD from Last 3 Months Immunizations Immunization Administration [...] on file Legal Sex Female 8:58 AM X RAY INSPECTOR Gender Identity Not on file Sexual Orientation [...] CDT Respiratory Rate 18 05/20/2024 5:25 PM X RAY INSPECTOR Oxygen Saturation 95% 07/05/2024 3:03 PM CDT Inhaled Oxygen Concentration - - Weight 71.2 kg (157 lb) 07/05/2024 3:03 PM CDT Height 157.5 cm (5' 2.01) 07/05/2024 3:03 PM CD T Body Mass Index 28.71 07/05/2024 3:03 PM CDT Plan of Treatment Health Maintenance Due Date Last Done Comments DTaP/Tdap/Td Vaccine (1 - Tdap) 07/14/1987 Hepatitis B Screening 1994 Covid-19 Vaccine (2023-2 5 season) 2023 10/21/2020, 07/31/2020 Hemoglobin A1C 10/20/2024 04/22/2024, 12/17, 10/22/2023, Additional history exists TSH Level 10/21/2024 10/22/2023, 12/25/2017 Albumin Creatinine Ratio, Urine 10/23/2024 Influenza Vaccine (#1) 2024 , 01/26/2018, 01/13/2017, Additional history exists Foot Exam 01/13/2025 01/14/2024, 10/22/2023 Dilated Eye Exam 01/18/2025 01/19/2024, 01/21/2023 eGFR 02/10/2025 02/11/2024, 10/22/2023 Depression Screening 07/05/2025 07/05/2024, 02/11/2024, 11/24/2023, Additional history exists Lipid Panel 07/05/2025 07/05/2024, 08/0 09/2023, 02/21/2020 Regular Well Visit/Exam 18-64 07/05/2025 07/05/2024 Cervical Cancer Screening 12/14/2025 12/14/2022 Colon Cancer Screening-Colonoscopy 05/09/2026 05/09/2021 Breast Cancer Screening-Mammogram Discontinued 020 Hepatitis C Screening Completed 10/22/2023 Pneumococcal vaccine <65 Completed 10/22/2023 Medical Devices Implanted Type Area Radiological Equipment Specialist Device Identifier Shelf Expiration Date Model / Serial / Lot Carreira Beautyian [id number] Brave Microvascular 3mm Ring Pin Protective Cover Jaw Assembly Latex Free - S0 - [id number] Implanted:Qty: 1 on 02/21/2020 by Jose Herrera MD at [facility] Clip Right: Breast [employer] Zilliant Claudette [id number] 10/13/2024 [id number] / 0 / [id number] Description:3.0 filtration supervisor [employer] Allian 2753 Brave 2.5mm Ring Pin Ultrasonic Doppler 20mhz Double End Tenoner Operator Anastomosis Latex Free - S0 - [id number] Implanted:Qty: 1 on 02/21/2020 by Vandana Bergman MD at [facility] Clip Left: Breast [employer] Claudette [id number] 09/25/2024 [id number] / 0 / [id number] [employer]ol Inc/C R Bard [id number] Phasix 8x6in Monofilament Scaffold Full Resorbable Rectangle Mesh - S0 - [id number] Implanted:Qty: 1 on 02/21/2020 by Vandana Bergman MD at [facility] Mesh Bilateral: Abdomen [employer] Inc/C R Bard [id number] 04/13/2021 [id number] / 0 / [id number] Sientra Inc Allox2-14se Allox 14x11.2cm Smooth Surface Integrate Port Breast P6-7.3cm Mid - [id number] - [id number] Implanted:Qty: 1 on 01/21/2020 by Vandana Bergman MD at [facility] Right: Chest [employer] Inc 08/10/2024 ALLOX2-14S E / [id number] / Sientra Inc Allox2-Fh14se Allox2 14x12.9cm Smooth Surface Integrate Port Breast P6.1-7.3cm - [id number] - [id number] Implanted:Qty: 1 on 01/21/2020 by Vandana Bergman MD at [facility] Left: Chest S[employer]ra Inc 09/20/2024 ALLOX2-FH1 4SE / [id number] / Allergan Usa [employer] [id number] Alloderm Select [id number] Allograft Regenerative Freeze Dried - [id number] Implanted:Qty: 1 on 01/21/2020 by Vandana Bergman MD at [facility] Left: Chest [employer] [id number] 09/13/2021 [id number] / / [id number] Allergan [employer] [id number] Alloderm Select [id number] Allograft Regenerative Freeze Dried - [id number] Implanted:Qty: 1 on 01/21/2020 by Vandana Bergman MD at [facility] Right: Chest Hall [id number] 09/13/2021 [id number] / / [id number] Procedures Procedure Name Priority Date/Time Associated Diagnosis [...] HEMOGLOBIN A1C Routine 04/22/2024 9 :11 AM X RAY INSPECTOR Type 1 diabetes mellitus with hyperglycemia (HCC) EGFR Routine 02/11/2024 12:00 PM X RAY INSPECTOR Colicky RUQ abdominal pain HM DIABETES EYE EXAM Routine 01/19/2024 7:54 AM X RAY INSPECTOR ALBUMIN CREATININE RATIO, URINE Routine 10/24/2023 10:15 AM CDT Type 1 diabetes mellitus without complication (HCC) HEPATITIS C ANTIBODY Routine 10/22/2023 4:00 PM CDT Encounter for hepatitis C screening test for low risk patient THYROID FUNCTION CASCADE Routine 10/22/2023 4:00 PM CDT Type 1 diabetes mellitus without complication (HCC) COLONOSCOPY 05/09/2021 11:16 AM X RAY INSPECTOR SCREENING MAMMOGRAM BILATERAL W MAX Schedule Routine, Read Routine (OP Routine) 09/22/2019 10:12 AM CDT Encounter for screening mammogram for malignant neoplasm of breast from Last 3 Months or Most Recently Relevant to Health Maintenance Results * CARLYN ab ql w/rflx to CARLYN qn (07/05/2024 3:30 PM CDT) CARLYN Negative Comment: Interpretive Data Normal range for CARYLN Qualitative Antibody = Negative. 1. CARLYN is [...] last revised on 2019. Testing performed by: [facility], [address] [facility], [place]., [address] Blood 07/05/2024 3:30 PM CDT 07/06/2024 10:10 AM CDT Katherine East NP LAB BLOOD ORDERABLES Final Resul t Performing Organization Address [facility] Co de Phone Number EDYTA OLIVER [phone] [place] [address] * Vitamin D 25 hydroxy (07/05/2024 3:30 PM CDT) Vitamin D 25-OH 30 30 - 80 ng/mL Blood 07/05/2024 3:30 PM CDT 07/05/2024 9:56 PM CDT Katherine East NP LAB BLOOD ORDERABLES Final Resul t Performing Organization Address City/[facility]/ZIP Co de Phone Number EDYTA OLIVER [address] of [employer] [place], [place] [id number] * (ABNORMAL) Erythrocyte sedimentation rate (07/05/2024 3:30 PM CDT) Erythrocyte sedimentation rate 57(H) 1 - 20 mm/hr Comment:Testing performed by : [facility], [facility], [place], [address] Blood 07/05/2024 3:30 PM CDT 07/05/2024 7:15 PM CDT us Katherine East VENDING MACHINE FILLER LAB BLOOD ORDERABLES Final Resul t Performing Organization Address [facility] de Phone Number EDISONFILI BOYD [address] Department [place] [address] * Rheumatoid factor (07/05/2024 3:30 PM CDT) Rheumatoid factor, quant <10 <=15 IUnits/mL Blood 07/05/2024 3:30 PM CDT 07/05/2024 9:56 PM CDT us Katherine East VENDING MACHINE FILLER LAB BLOOD ORDERABLES Final Resul t Performing Organization Address [facility] de Phone Number EDYTA OLIVER [address] [place] [address] * CRP (acute phase) (07/05/2024 3:30 PM CDT) CRP 3.3 <=10.0 mg/L Blood 07/05/2024 3:30 PM CDT 07/05/2024 9:56 PM CDT us Katherine East VENDING MACHINE FILLER LAB BLOOD ORDERABLES Final Resul t Performing Organization Address [facility] [place] [address] [address] [place] [address] * Lipid panel (07/05/2024 3:30 PM CDT) [...] on 2017. Triglycerides 58 <=149 mg/dL EDYTA Comment: Interpretive Data Ages < or = [...] on 2017. HDL 50 >=40 mg/dL EDYTA Comment: Interpretive Data Ages < or = [...] 2017. LDL, calculated 112 <=129 mg/dL EDYTA Comment: Interpretive Data Ages < or = 19 years Acceptable: <110 mg/dL Borderline high: 110-129 mg/dL High: >or= 130 mg/dL Ages > or = 20 years Optimal: <100 mg/dL Near optimal: 100-129 mg/dL Borderline high: 130-159 mg/dL High: >160 mg/dL Calculated using the Walls LDL-C estimating equation. This equation was implemented on 2023. Prior to this date LDL-C was estimated using the Friedewald equation. Literature References: 1. Expert Panel on Integrated Guidelines for Cardiovascular Health and Risk Reduction in Children and Adolescents. Pediatrics 2011;128:S213 2. NCEP Expert Panel. Circulation 2004;110:227 3. Titi M et al. NING Cardiol. 2020 July [...] LAB BLOOD ORDERABLES Final Resul t EDYTA BOYD [address] Department [place] [address] * (ABNORMAL) POCT hemoglobin A1c (04/22/2024 9:11 AM X RAY INSPECTOR) Hemoglobin A1C, POC 8.4 4.0 - 5.6 % Capillary blood 04/22/2024 9 :11 AM X RAY INSPECTOR Bethany DELACRUZ POINT OF CARE TEST LAXMI RABZELALEM Final Result * eGFR (02/11/2024 12:00 PM X RAY INSPECTOR) eGFR >90 >=60 mL/min/1. 73 m2 Comment: [...] reviewed 2021. Blood 02/11/2024 12:0 0 PM X RAY INSPECTOR 02/11/2024 7:54 PM X RAY INSPECTOR Whitney Matthews NP LAB BLOOD ORDERABLES Final R esult Performing Organization Address City/[facility]/ZIP Co de Phone Number EDYTA BOYD [address] [place] [address] * DIABETES EYE EXAM (01/19/2024 7:54 AM X RAY INSPECTOR) Historical Provider HEALTH MAINTENANCE Final Result * [...] NP LAB URINE ORDERABLES Final Resul t Performing Organization Address City/[facility]/ZIP Co de Phone Number EDYTA BOYD [address] [place] [address] * Thyroid Function Fence (10/22/2023 4:00 PM CDT) TSH 1.97 0.30 - 4.20 mcIUnit/mL Blood 10/22/2023 4:00 PM CDT 10/22/2023 8:26 PM CDT Katherine East NP LAB BLOOD ORDERABLES Final Resul t Performing Organization Address [facility] de Phone Number [facility] [place] [place] [address] [address] [place] [address] * Hepatitis C antibody Blood (10/22/2023 4:00 [...] ORDER EULOGIO Final Result Performing Organization Address [facility] [place] [address] [address] [place] [address] * COLONOSCOPY (05/09/2021 11:16 AM X RAY INSPECTOR) Anatomical Region Laterality Modality Other Narrative Procedure Note Jhonathan Florez MD - 05/09/2021 11:16 AM CST [facility] Patient Name: Francie Conti Procedure Date: 05/09/2021 11:16 AM Date of : 1975 Admit Type: Outpatient Age: 45 Gender: Female Attending MD: Jhonathan Florez M.D. Room: [facility] END[facility]COPY ROOM 1 Note Status: Finalized Patient [...] passed under direct vision.The Pediatric Colonoscope [id number] was introduced through the anus and advanced [...] 11:16 AM Procedure Code(s): --- Professional --- 40286, Colonoscopy, flexible; with biopsy, single or multiple Diagnosis Code(s): --- Professional --- K63.5, Polyp of colon R19.4, Change in bowel habit K59.04, Chronic idiopathic constipation CPT copyright 2019 [employer]. All rights reserved. The codes documented in this report are preliminary and upon rate supervisor reviewmay be revised to meet current compliance requirements. Recognized by the [employer] for promoting quality [...] mass, calcification, or architectural distortion. Frida Nogueira VENDING MACHINE FILLER IMG MAMMO PROCEDURES Final Re sult from Last 3 Months or Most Recently Relevant to Health Maintenance Insurance [facility] Advance Directives For more information, please contact: [phone] * Full Code (Latest Code Status on [...] 9:57 PM 01/23/2020 12:06 AM Care Teams It Portfolio Manager Relationship Specialty Start Date End Date Katherine East NP [address] [address] PCP - General Family Medicine 10/22/23 Celestine Monroe, PT Physical Therapist Physical Therapy 10/20/17 Cherie Parker PTA Physical Therapist Physical Therapy 11/03/17 Frida Nogueira, VENDING MACHINE FILLER [facility] [address] [address] Nurse Practitioner Nurse Practitioner 10/22/23 Halina Treviño MD PhD [phone] [place] [address] Surgeon Surgical Oncology 10/22/23
--- OUTSIDE RECORDS SUMMARY | 2024-09-20 14:28 | XMS_ITS | Referral Summary ---
Author Organization [facility] Address [address] [place] [address] Care Team Providers Care Field Worker Name Role Phone Celestine Monroe PT Unavailable Unavaila ble Cherie Parker BOOKMOBILE CLERK Unavailable Unavailab Katherine Delvalle NP Primary Care Provider Frida Nogueira LIGHTNING ROD INSTALLER Unavailable [phone] Halina Treviño MD PhD Unavaila ble Encounters Date Type Department Care Team Description 09/20/2024 Telephone [facility] Gastroenterology at [address] [place] [address] Magdalena Leonard MA 08/04/2024 Telephone [facility] [id number] [place] [address] [address] [place] [address] Concepcion Balderrama MD Prior Auth (Dexcom G7) 08/03/2024 Telephone [facility] Group Diabetes and Endocrinology [address] [place] [phone] Concepcion Balderrama MD Prior Auth (Admelog) 07/08/2024 Orders Only [facility] Primary Care at [address] [phone] Katherine East NP 07/07/2024 Results Follow-Up [facility] Medical [facility] Primary Care at [address] [phone] Katherine East NP Erythrocyte sedimentation rate, CRP (acute phase), Rheumatoid factor, Additional followed-up results: 3 07/06/2024 Orders Only [facility] Primary Care at [address] [phone] Katherine East NP 07/06/2024 Telephone [facility] Primary Care at [address] [phone] Katherine East NP PA for Nexlizet 180-10MG tablets 07/05/2024 3:30 PM CDT - 07/05/2024 11:59 PM CDT Hospital Encounter [address] [address] Arthralgia of multiple joints; Vitamin D deficiency; Mixed hyperlipidemia Discharge Disposition: Discharge to home or self care 07/05/2024 3:30 PM CDT Lab [facility] Outpatient Lab at [address] [phone] 07/05/2024 3:00 PM CDT Office Visit [facility] Primary Care at [address] [phone] Katherine East NP Annual physical exam (Primary Dx); Mixed hyperlipidemia; Anxiety; Arthralgia of multiple joints; Vitamin D deficiency 07/01/2024 Telephone [facility] Specialists of [address] [address] Concepcion Balderrama MD 06/29/2024 Telephone [facility] Specialists of [address] [address] Concepcion Balderrama MD from Last 3 Months Allergies No known active allergies Medications blood-glucose meter,continuous (Dexcom G6 Crm Analyst) misc Dexcom G6 Crm Analyst [facility] Active BD Insulin Syringe Ultra-Fine 0.5 mL [...] day before meals and nightly 120 capsule 02/11/20 24 025 Active Additional Information Patient [...] 03/19 Assessment & Plan (04/22/2024 9:59 AM QUANTITATIVE SOFTWARE ENGINEER): Chronic problem, not at goal. I emailed [employer] rep to help Francie get upgraded to [...] 02/24/2024 Assessment & Plan (02/24/2024 11:21 AM QUANTITATIVE SOFTWARE ENGINEER): I do not appreciate any clear fascial [...] 02/22/2024 Assessment & Plan (02/22/2024 11:57 PM QUANTITATIVE SOFTWARE ENGINEER): - Differential includes biliary colic, GERD, PUD, DM 1 associated gastroparesis, IBS - On meloxicam, recommend adding daily PPI or famotidine for gastric prophylaxis - Eat smaller frequent meals - Follow labs and abdominal ultrasound - Instructed to go the ED if progression of symptoms Hyperlipidemia due to type 1 diabetes mellitus 1 03/22/2023 Assessment & Plan (04/22/2024 9:57 AM QUANTITATIVE SOFTWARE ENGINEER): Chronic problem. On statin therapy, no changes. Assessment & Plan (01/21/2024 1:49 PM QUANTITATIVE SOFTWARE ENGINEER): Continue statin therapy Insulin pump in place 01/21/2024 Assessment & Plan (04/22/2024 9:57 AM QUANTITATIVE SOFTWARE ENGINEER): No pump setting changes. Assessment & Plan (01/21/2024 1:54 PM QUANTITATIVE SOFTWARE ENGINEER): Have long acting , basal insulin ( [...] 05/20/2023 Assessment & Plan (05/20/2023 5:54 PM QUANTITATIVE SOFTWARE ENGINEER): Refer to plastic surgery for eval Allergic rhinitis 05/20/2023 Assessment & Plan (05/20/2023 5:55 PM QUANTITATIVE SOFTWARE ENGINEER): Consider OTC antihistamine daily. Monitor for improvement Right wrist pain 05/20/2023 Assessment & Plan (05/20/2023 5:54 PM QUANTITATIVE SOFTWARE ENGINEER): Refer to Ortho Muscle strain 11/15/2022 Conjunctivitis [...] (07/20/2020): Added automatically from request for surgery [id number] Malignant neoplasm of female breast 02/03/2020 Overview (02/03/2020): Added automatically from request for surgery [id number] Assessment & Plan (10/22/2023 3:50 PM CDT): 2020 diagnosed, had double mastectomy. 1 more year of surveillance with Oncologist. Ductal carcinoma in situ of left breast 02/03/20 20 Overview (02/03/2020): Added automatically from request for surgery [id number] Ductal carcinoma in situ (DCIS) of left [...] UNCNTRL Assessment & Plan (01/21/2024 1:54 PM QUANTITATIVE SOFTWARE ENGINEER): Chronic, uncontrolled, worsening A1c 8.9% goal A1c [...] ago was 8.2. In need of new Subacute Nurse. Referral placed and updated labs ordered. Assessment [...] on file Legal Sex Female 8:58 AM QUANTITATIVE SOFTWARE ENGINEER Gender Identity Not on file Sexual Orientation Not on file Last Filed Vital Signs Vital Sign Reading Time Taken Comments Blood Pressure 114/72 07/05/2024 3:03 PM CDT Pulse 119 07/05/2024 3:03 PM CDT Temperature 37.1 C (98.7 F) 07/05/2024 3:03 PM CDT Respiratory Rate 18 05/20/2024 5:25 PM QUANTITATIVE SOFTWARE ENGINEER Oxygen Saturation 95% 07/05/2024 3:03 PM CDT Inhaled Oxygen Concentration - - Weight 71.2 kg (157 lb) 07/05/2024 3:03 PM CDT Height 157.5 cm (5' 2.01) 07/05/2024 3:03 PM CD T Body Mass Index 28.71 07/05/2024 3:03 PM CDT Plan of Treatment Not on file Medical Devices Implanted Type Area Stogy Roller Device Identifier Shelf Expiration Date Model / Serial / Lot Synovis Xyo Allian [id number] Lilburn Microvascular 3mm Ring Pin Protective Cover Jaw Assembly Latex Free - S0 - [id number] Implanted:Qty: 1 on 02/21/2020 by Jose Herrera MD at [facility] Clip Right: Breast Synovis Xyo Allian [id number] 10/13/2024 [id number] / 0 / [id number] Description:3.0 coil cleaner Synovis Xyo Allian 2753 Lilburn 2.5mm Ring Pin Ultrasonic Doppler 20mhz Roofing Tile Sorter Anastomosis Latex Free - S0 - [id number] Implanted:Qty: 1 on 02/21/2020 by Vandana Bergman MD at [facility] Clip Left: Breast Synovis Micro Dayima Claudette [id number] 09/25/2024 2753 / 0 / [id number] Davol Inc/C R Bard [id number] Phasix 8x6in Monofilament Scaffold Full Resorbable Rectangle Mesh - S0 - [id number] Implanted:Qty: 1 on 02/21/2020 by Vandana Bergman MD at [facility] Mesh Bilateral: Abdomen [employer]ol Inc/C R Bard [id number] 04/13/2021 [id number] / 0 / [id number] Sientra Inc Allox2-14se Allox 14x11.2cm Smooth Surface Integrate Port Breast P6-7.3cm Mid - [id number] - [id number] Implanted:Qty: 1 on 01/21/2020 by Vandana Bergman MD at [facility] Right: Chest Sientra Inc 08/10/2024 ALLOX2-14S E / [id number] / Sientra Inc Allox2-Fh14se Allox2 14x12.9cm Smooth Surface Integrate Port Breast P6.1-7.3cm - [id number] - [id number] Implanted:Qty: 1 on 01/21/2020 by Vandana Bergman MD at [facility] Left: Chest Sientra Inc 09/20/2024 ALLOX2-FH1 4SE / [id number] / Allergan Usa Inc [id number] Alloderm Select [id number] Allograft Regenerative Freeze Dried - [id number] Implanted:Qty: 1 on 01/21/2020 by Vandana Bergman MD at [facility] Left: Chest [employer]ergan [employer]sa [employer] [id number] 09/13/2021 [id number] / / [id number] Allergan [employer]sa Inc [id number] Alloderm Select [id number] Allograft Regenerative Freeze Dried - [id number] Implanted:Qty: 1 on 01/21/2020 by Vandana Bergman MD at [facility] Right: Chest Allergan Usa Inc [id number] 09/13/2021 [id number] / / [id number] Procedures Procedure Name Priority Date/Time Associated Diagnosis [...] HEMOGLOBIN A1C Routine 04/22/2024 9 :11 AM QUANTITATIVE SOFTWARE ENGINEER Type 1 diabetes mellitus with hyperglycemia (HCC) EGFR Routine 02/11/2024 12:00 PM QUANTITATIVE SOFTWARE ENGINEER Colicky RUQ abdominal pain HM DIABETES EYE EXAM Routine 01/19/2024 7:54 AM QUANTITATIVE SOFTWARE ENGINEER ALBUMIN CREATININE RATIO, URINE Routine 10/24/2023 10:15 AM CDT Type 1 diabetes mellitus without complication (HCC) HEPATITIS C ANTIBODY Routine 10/22/2023 4:00 PM CDT Encounter for hepatitis C screening test for low risk patient THYROID FUNCTION CASCADE Routine 10/22/2023 4:00 PM CDT Type 1 diabetes mellitus without complication (HCC) COLONOSCOPY 05/09/2021 11:16 AM QUANTITATIVE SOFTWARE ENGINEER SCREENING MAMMOGRAM BILATERAL W MAX Schedule Routine, [...] revised on 2019. Testing performed by: [facility], [address] [place]., [address] Blood 07/05/2024 3:30 PM CDT 07/06/2024 10:10 AM CDT us Katherine East LIGHTNING ROD INSTALLER LAB BLOOD ORDERABLES Final Resul t EDISONFILI BOYD [address] Department [address] [employer] [place] [address] * Vitamin D 25 hydroxy (07/05/2024 3:30 PM CDT) Vitamin D 25-OH 30 30 - 80 ng/mL Blood 07/05/2024 3:30 PM CDT 07/05/2024 9:56 PM CDT us Katherine East NP LAB BLOOD ORDERABLES Final Resul t Performing Organization Address [facility] Co de Phone Number EDISONFILI [address] [place] [address] * (ABNORMAL) Erythrocyte sedimentation rate (07/05/2024 3:30 PM CDT) Pathologist [facility] Erythrocyte sedimentation rate 57(H) 1 - 20 mm/hr Comment:Testing performed by : [facility], [address] [facility], [place], [address] Blood 07/05/2024 3:30 PM CDT 07/05/2024 7:15 PM CDT us Katherine East NP LAB BLOOD ORDERABLES Final Resul t Performing Organization Address City/[facility] Co de Phone Number EDYTA [address] [place] [address] * Rheumatoid factor (07/05/2024 3:30 PM CDT) Rheumatoid factor, quant <10 <=15 IUnits/mL Blood 07/05/2024 3:30 PM CDT 07/05/2024 9:56 PM CDT us Katherine East LIGHTNING ROD INSTALLER LAB BLOOD ORDERABLES Final Resul t Performing Organization Address [facility] Co de Phone Number EDYTA BOYD [address] [place] [address] * CRP (acute phase) (07/05/2024 3:30 PM CDT) CRP 3.3 <=10.0 mg/L Blood 07/05/2024 3:30 PM CDT 07/05/2024 9:56 PM CDT us Katherine East LIGHTNING ROD INSTALLER LAB BLOOD ORDERABLES Final Resul t Performing Organization Address [facility] de Phone Number EDYTA BOYD [address] Department [place] [address] * Lipid panel (07/05/2024 3:30 PM CDT) [...] NCEP Expert Panel. Circulation 2004;110:227 3. Titi Dietz. NING Cardiol. 2020 July 15;5(5):540-548. doi: 10.1001/jamacardio.2020.0013 [...] BLOOD ORDERABLES Final Resul t EDYTA BOYD [address] Department [facility] Laboratories [place], [place] [id number] * (ABNORMAL) POCT hemoglobin A1c (04/22/2024 9:11 AM QUANTITATIVE SOFTWARE ENGINEER) Hemoglobin A1C, POC 8.4 4.0 - 5.6 % Capillary blood 04/22/2024 9 :11 AM QUANTITATIVE SOFTWARE ENGINEER Bethany DELACRUZ POINT OF CARE TEST ORDE RABLES Final Result * eGFR (02/11/2024 12:00 PM QUANTITATIVE SOFTWARE ENGINEER) eGFR >90 >=60 mL/min/1. 73 m2 Comment: [...] reviewed 2021. Blood 02/11/2024 12:0 0 PM QUANTITATIVE SOFTWARE ENGINEER 02/11/2024 7:54 PM QUANTITATIVE SOFTWARE ENGINEER Whitney Matthews LIGHTNING ROD INSTALLER LAB BLOOD ORDERABLES Final R esult Performing Organization Address City/[facility] Co de Phone Number EDISONFILI BOYD [address] [place] [employer] [place] [address] * DIABETES EYE EXAM (01/19/2024 7:54 AM QUANTITATIVE SOFTWARE ENGINEER) Historical Provider HEALTH MAINTENANCE Final Result * [...] CDT 10/24/2023 3:48 PM CDT Katherine East LIGHTNING ROD INSTALLER LAB URINE ORDERABLES Final Resul t Performing Organization Address [facility] Co de Phone Number EDYTA BOYD [address] [place] [employer] [place] [address] * Thyroid Function [place] (10/22/2023 4:00 PM CDT) TSH 1.97 0.30 - 4.20 mcIUnit/mL Blood 10/22/2023 4:00 PM CDT 10/22/2023 8:26 PM CDT Katherine East LIGHTNING ROD INSTALLER LAB BLOOD ORDERABLES Final Resul t Performing Organization Address City/[facility] Co de Phone Number EDYTA BOYD [address] [place] [address] * Hepatitis C antibody Blood (10/22/2023 4:00 [...] MICROBIOLOGY - GENERAL ORDER EULOGIO Final Result [facility] [address] Department [place] [address] * COLONOSCOPY (05/09/2021 11:16 AM QUANTITATIVE SOFTWARE ENGINEER) Anatomical Region Laterality Modality Other Narrative Procedure Note Jhonathan Florez MD - 05/09/2021 11:16 AM CST [facility] Patient Name: Francie Conti Procedure Date: 05/09/2021 11:16 AM Date of : 1975 Admit Type: Outpatient Age: 45 Gender: Female Attending MD: Jhonathan Florez M.D. Room: [facility] 1 Note Status: Finalized Patient [...] passed under direct vision.The Pediatric Colonoscope [id number] was introduced through the anus and advanced [...] 11:16 AM Procedure Code(s): --- Professional --- 68845, Colonoscopy, flexible; with biopsy, single or multiple Diagnosis Code(s): --- Professional --- K63.5, Polyp of colon R19.4, Change in bowel habit K59.04, Chronic idiopathic constipation CPT copyright 2019 [employer]. All rights reserved. The codes documented in this report are preliminary and upon supervisor tank storage reviewmay be revised to meet current compliance requirements. Recognized by the [place] [employer] for promoting quality [...] mass, calcification, or architectural distortion. Frida Nogueira LIGHTNING ROD INSTALLER IMG MAMMO PROCEDURES Final Re sult from Last 3 Months or Most Recently Relevant to Health Maintenance Insurance [facility] Advance Directives For more information, please contact: [phone] * Full Code (Latest Code Status on [...] 9:57 PM 01/23/2020 12:06 AM Care Teams Field Worker Relationship Specialty Start Date End Date Katherine East NP [address] [facility] [address] [place] [address] PCP - General Family Medicine 10/22/23 Celestine Monroe, PT Physical Therapist Physical Therapy 10/20/17 Cherie Parker, BOOKMOBILE CLERK Physical Therapist Physical Therapy 11/03/17 Frida Nogueira, LIGHTNING ROD INSTALLER [address] [place] [address] [address] [place] [address] Nurse Practitioner Nurse Practitioner 10/22/23 Halina Treviño MD PhD [address] [id number] [place] [address] Surgeon Surgical Oncology 10/22/23
--- OUTSIDE RECORDS SUMMARY | 2024-09-20 15:04 | XMS_ITS | Clinical Summary ---
Author Organization [facility] Address [address] [place] [address] Care Team Providers Care Furnace Feeder Name Role Phone Kirit Cohen Primary Care Provider Source Comments [facility],non-owned Affiliates and Associated Physician Practices is amultiple site organization consisting of ambulatory clinics and hospital sitesin [place], [place], [place] and [place]. This disclosure is being madepursuant to the Care Everywhere program and may not contain all information available regarding this patient. Last updated 17.[facility] Allergies No known active allergies Medications * Be aware that medications may not be up to date on this document. Alwaysverify current medications with the patient. 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 Contractor Broomcorn Threshing (DEXCOM G6 CRIMINAL INVESTIGATIVE AGENT) RUSTY Dexcom G6 Contractor [employer]room[employer] Threshing misc Active ibuprofen (MOTRIN) 200 MG tablet [...] (09/06/2020): Added automatically from request for surgery [id number] Malignant neoplasm of female breast 02/03/2020 Overview (09/06/2020): Added automatically from request for surgery [id number] Ductal carcinoma in situ (DCIS) of left breast 1 Overview (09/06/2020): Added automatically from request for surgery [id number] Mixed hyperlipidemia 09/19/2017 Overview (09/06/2020): Last Assessment [...] CDT Gender Identity Female 01/30/2021 6:45 PM LABORER PETROLEUM REFINERY Sexual Orientation Not on file Last Filed Vital Signs Vital Sign Reading Time Taken Comments Blood Pressure 132/94 04/17/2021 7:34 AM LABORER PETROLEUM REFINERY Pulse 85 04/17/2021 7:34 AM LABORER PETROLEUM REFINERY Temperature - - Respiratory Rate - - Oxygen Saturation - - Inhaled Oxygen Concentration - - Weight 68.9 kg (152 lb) 04/17/2021 7:34 AM LABORER PETROLEUM REFINERY Height 160 cm (5' 3) 04/17/2021 7:34 AM LABORER PETROLEUM REFINERY Body Mass Index 26.93 04/17/2021 7:34 AM LABORER PETROLEUM REFINERY Plan of Treatment Health Maintenance Due Date [...] to complete this topic Insurance Care Teams Furnace Feeder Relationship Specialty Start Date End Date Kirit Cohen PA [address] [place] [address] PCP - General 11/23/18
--- OUTSIDE RECORDS SUMMARY | 2024-09-20 15:04 | XMS_ITS | Encounter Summary ---
Author Organization [facility] Healthcare Address [address] [place] [address] Care Team Providers Care Interventional Radiologist Name Role Phone Celestine Monroe PT Unavailable Unavaila Cherie Stephenson PTA Unavailable Unavailab Katherine Delvalle REGISTRAR MUSEUM Primary Care Provider [phone] Frida Aburto REGISTRAR MUSEUM Unavailable [phone] Halina Treviño MD PhD Unavaila ble Encounter Details Date Type Department Care Team (Late st Contact Info) Description 09/20/2024 Telephone [facility] Medical Group Gastroenterology at [address] [place] [address] Magdalena Leonard MA Social History [...] on file Legal Sex Female 8:58 AM SPORTS THERAPIST Gender Identity Not on file Sexual Orientation [...] on filedocumented in this encounter Care Teams Interventional Radiologist Relationship Specialty Start Date End Date Katherine East NP [address] [facility] [address] [place] [address] PCP - General Family Medicine 10/22/23 Celestine Monroe, PT Physical Therapist Physical Therapy 10/20/17 Cherie Parker, NATIONAL SALES REPRESENTATIVE Physical Therapist Physical Therapy 11/03/17 Frida Aburto, REGISTRAR MUSEUM [address] [place] [address] [address] [place] [address] Nurse Practitioner Nurse Practitioner 10/22/23 Halina Treviño MD PhD [address] [id number] [place] [address] Surgeon Surgical Oncology 10/22/23 documented as of this encounter
--- OUTSIDE RECORDS SUMMARY | 2024-09-20 15:05 | XMS_ITS ---
Author Organization [facility] Address [address] [place] [address] Care Team Providers Care Clinical Informatics Director Name Role Phone Celestine Monroe PT Unavailable Unavaila Cherie Stephenson SPIRAL RUNNER Unavailable Unavailab Katherine Delvalle NP Primary Care Provider [phone] Frida Aburto KIER PLEATER Unavailable [phone] Halina Treviño MD PhD Unavaila ble Active Problems Problem Noted Date Diagnosed Date Type 1 diabetes mellitus with hyperglycemia 03/19 Assessment & Plan (04/22/2024 9:59 AM SIX COLOR PRESS OPERATOR): Chronic problem, not at goal. I emailed [facility] to help Francie get upgraded to [...] 02/24/2024 Assessment & Plan (02/24/2024 11:21 AM SIX COLOR PRESS OPERATOR): I do not appreciate any clear fascial [...] 02/22/2024 Assessment & Plan (02/22/2024 11:57 PM SIX COLOR PRESS OPERATOR): - Differential includes biliary colic, GERD, PUD, DM 1 associated gastroparesis, IBS - On meloxicam, recommend adding daily PPI or famotidine for gastric prophylaxis - Eat smaller frequent meals - Follow labs and abdominal ultrasound - Instructed to go the ED if progression of symptoms Hyperlipidemia due to type 1 diabetes mellitus 1 03/22/2023 Assessment & Plan (04/22/2024 9:57 AM SIX COLOR PRESS OPERATOR): Chronic problem. On statin therapy, no changes. Assessment & Plan (01/21/2024 1:49 PM SIX COLOR PRESS OPERATOR): Continue statin therapy Insulin pump in place 01/21/2024 Assessment & Plan (04/22/2024 9:57 AM SIX COLOR PRESS OPERATOR): No pump setting changes. Assessment & Plan (01/21/2024 1:54 PM SIX COLOR PRESS OPERATOR): Have long acting , basal insulin ( [...] 05/20/2023 Assessment & Plan (05/20/2023 5:54 PM SIX COLOR PRESS OPERATOR): Refer to plastic surgery for eval Allergic rhinitis 05/20/2023 Assessment & Plan (05/20/2023 5:55 PM SIX COLOR PRESS OPERATOR): Consider OTC antihistamine daily. Monitor for improvement Right wrist pain 05/20/2023 Assessment & Plan (05/20/2023 5:54 PM SIX COLOR PRESS OPERATOR): Refer to Ortho Muscle strain 11/15/2022 Conjunctivitis [...] (07/20/2020): Added automatically from request for surgery [id number] Malignant neoplasm of female breast 02/03/2020 Overview (02/03/2020): Added automatically from request for surgery [id number] Assessment & Plan (10/22/2023 3:50 PM CDT): 2020 diagnosed, had double mastectomy. 1 more year of surveillance with Oncologist. 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 In need of new Bench Tool Maker. Referral placed and updated labs ordered. Assessment [...]
--- OUTSIDE RECORDS SUMMARY | 2024-09-20 15:05 | XMS_ITS | Clinical Summary ---
Author Organization [facility] Address [address] [place] [address] Care Team Providers Care Carrot Grader Inspector Name Role Phone Celestine Monroe PT Unavailable Unavaila Cherie Stephenson HOEING [employer]OW BOSS Unavailable Unavailab Katherine Delvalle FITNESS AND WELLNESS DIRECTOR Primary Care Provider [phone] Frida Nogueira FITNESS AND WELLNESS DIRECTOR Unavailable [phone] Halina Treviño MD PhD Unavaila ble Allergies No known active allergies Medications blood-glucose meter,continuous (Dexcom G6 [employer]) misc Dexcom G6 [employer] misc Active BD Insulin Syringe Ultra-Fine 0.5 [...] 03/19 Assessment & Plan (04/22/2024 9:59 AM TEST OPERATOR): Chronic problem, not at goal. I emailed [employer] to help Francie get upgraded to G7 [...] 02/24/2024 Assessment & Plan (02/24/2024 11:21 AM TEST OPERATOR): I do not appreciate any clear [...] 02/22/2024 Assessment & Plan (02/22/2024 11:57 PM TEST OPERATOR): - Differential includes biliary colic, GERD, PUD, DM 1 associated gastroparesis, IBS - On meloxicam, recommend adding daily PPI or famotidine for gastric prophylaxis - Eat smaller frequent meals - Follow labs and abdominal ultrasound - Instructed to go the ED if progression of symptoms Hyperlipidemia due to type 1 diabetes mellitus 1 03/22/2023 Assessment & Plan (04/22/2024 9:57 AM TEST OPERATOR): Chronic problem. On statin therapy, no changes. Assessment & Plan (01/21/2024 1:49 PM TEST OPERATOR): Continue statin therapy Insulin pump in place 01/21/2024 Assessment & Plan (04/22/2024 9:57 AM TEST OPERATOR): No pump setting changes. Assessment & Plan (01/21/2024 1:54 PM TEST OPERATOR): Have long acting , basal insulin [...] 05/20/2023 Assessment & Plan (05/20/2023 5:54 PM TEST OPERATOR): Refer to plastic surgery for eval Allergic rhinitis 05/20/2023 Assessment & Plan (05/20/2023 5:55 PM TEST OPERATOR): Consider OTC antihistamine daily. Monitor for improvement Right wrist pain 05/20/2023 Assessment & Plan (05/20/2023 5:54 PM TEST OPERATOR): Refer to Ortho Muscle strain 11/15/2022 [...] (07/20/2020): Added automatically from request for surgery [id number] Malignant neoplasm of female breast 02/03/2020 Overview (02/03/2020): Added automatically from request for surgery [id number] Assessment & Plan (10/22/2023 3:50 PM CDT): 2020 diagnosed, had double mastectomy. 1 more year of surveillance with Oncologist. Ductal carcinoma in situ of left breast 02/03/20 20 Overview (02/03/2020): Added automatically from request for surgery [id number] Ductal carcinoma in situ (DCIS) of left [...] UNCNTRL Assessment & Plan (01/21/2024 1:54 PM TEST OPERATOR): Chronic, uncontrolled, worsening A1c 8.9% goal [...] ago was 8.2. In need of new Electronic Systems Technician. Referral placed and updated labs ordered. Assessment [...] 09/20/2024 Telephone [facility] at [address] [place] [phone] Magdalena Leonard MA 08/04/2024 Telephone [facility] [address] [place] [address] Concepcion Balderrama MD Prior Auth (Dexcom G7) 08/03/2024 Telephone [facility] Diabetes and Endocrinology [address] [place] [id number] Concepcion Balderrama MD Prior Auth (Admelog) 07/08/2024 Orders Only [facility] Primary Care at [address] [phone] Katherine East NP 07/07/2024 Results Follow-Up [facility] Care at [address] [phone] Katherine East, LYRIC Erythrocyte sedimentation rate, CRP (acute phase), Rheumatoid factor, Additional followed-up results: 3 07/06/2024 Orders Only [facility] Primary Care at [address] [phone] Katherine East, LYRIC 07/06/2024 Telephone [facility] Primary Care at [address] [phone] Katherine East NP PA for Nexlizet 180-10MG tablets 07/05/2024 3:30 PM CDT - 07/05/2024 11:59 PM CDT Hospital Encounter [facility] [address] [place] [address] Arthralgia of multiple joints; Vitamin D deficiency; Mixed hyperlipidemia Discharge Disposition: Discharge to home or self care 07/05/2024 3:30 PM CDT Lab [facility] Outpatient Lab at [address] [phone] 07/05/2024 3:00 PM CDT Office Visit [facility] Primary Care at [address] [address] Katherine East NP Annual physical exam (Primary Dx); Mixed hyperlipidemia; Anxiety; Arthralgia of multiple joints; Vitamin D deficiency 07/01/2024 Telephone [facility] of [address] [address] Concepcion Balderrama MD 06/29/2024 Telephone [facility] [place] [place] Specialists of [address] [address] Concepcion Balderrama MD from Last [...] on file Legal Sex Female 8:58 AM TEST OPERATOR Gender Identity Not on file Sexual Orientation [...] CDT Respiratory Rate 18 05/20/2024 5:25 PM TEST OPERATOR Oxygen Saturation 95% 07/05/2024 3:03 PM CDT [...] Completed 10/22/2023 Medical Devices Implanted Type Area Concentrator Operator Device Identifier Shelf Expiration Date Model / Serial / Lot TenderTreeian [id number] [place] Microvascular 3mm Ring Pin Protective Cover Jaw Assembly Latex Free - S0 - [id number] Implanted:Qty: 1 on 02/21/2020 by Jose Herrera MD at [facility] Clip Right: Breast [employer] Claudette [id number] 10/13/2024 [id number] / 0 / [id number] Description:3.0 assembler trim Idomoo Allian 2753 [place] 2.5mm Ring Pin Ultrasonic Doppler 20mhz Wood Form Builder Anastomosis Latex Free - S0 - [id number] Implanted:Qty: 1 on 02/21/2020 by Vandana Bergman MD at [facility] Clip Left: Breast [employer] Claudette [id number] 09/25/2024 2753 / 0 / [id number] [employer]ol Inc/C R Bard [id number] Phasix 8x6in Monofilament Scaffold Full Resorbable Rectangle Mesh - S0 - [id number] Implanted:Qty: 1 on 02/21/2020 by Vandana Bergman MD at [facility] Mesh Bilateral: Abdomen [employer] Inc/C R Bard [id number] 04/13/2021 [id number] / 0 / [id number] Sientra Inc Allox2-14se Allox 14x11.2cm Smooth Surface Integrate Port Breast P6-7.3cm Mid - [id number] - [id number] Implanted:Qty: 1 on 01/21/2020 by Vandana Bergman MD at [facility] Right: Chest S[employer] Inc 08/10/2024 ALLOX2-14S E / [id number] / S[employer] Allox2-Fh14se Allox2 14x12.9cm Smooth Surface Integrate Port Breast P6.1-7.3cm - [id number] - [id number] Implanted:Qty: 1 on 01/21/2020 by Vandana Bergman MD at [facility] Left: Chest Sient[employer] Inc 09/20/2024 ALLOX2-FH1 4SE / [id number] / Allergan Usa [employer] [id number] Alloderm Select [id number] Allograft Regenerative Freeze Dried - [id number] Implanted:Qty: 1 on 01/21/2020 by Vandana Bergman MD at [facility] Left: Chest [employer] [id number] 09/13/2021 [id number] / / [id number] [employer] [id number] Alloderm Select [id number] Allograft Regenerative Freeze Dried - [id number] Implanted:Qty: 1 on 01/21/2020 by Vandana Bergman MD at [facility] Right: Chest [employer] [id number] 09/13/2021 [id number] / / [id number] Procedures Procedure Name Priority Date/Time Associated Diagnosis [...] HEMOGLOBIN A1C Routine 04/22/2024 9 :11 AM TEST OPERATOR Type 1 diabetes mellitus with hyperglycemia (HCC) EGFR Routine 02/11/2024 12:00 PM TEST OPERATOR Colicky RUQ abdominal pain HM DIABETES EYE EXAM Routine 01/19/2024 7:54 AM TEST OPERATOR ALBUMIN CREATININE RATIO, URINE Routine 10/24/2023 10:15 AM CDT Type 1 diabetes mellitus without complication (HCC) HEPATITIS C ANTIBODY Routine 10/22/2023 4:00 PM CDT Encounter for hepatitis C screening test for low risk patient THYROID FUNCTION CASCADE Routine 10/22/2023 4:00 PM CDT Type 1 diabetes mellitus without complication (HCC) COLONOSCOPY 05/09/2021 11:16 AM TEST OPERATOR SCREENING MAMMOGRAM BILATERAL W MAX Schedule Routine, [...] last revised on 2019. Testing performed by: [facility], [address] [facility], [place]., [address] Blood 07/05/2024 3:30 PM CDT 07/06/2024 10:10 AM CDT Katherine East NP LAB BLOOD ORDERABLES Final Resul t Performing Organization Address [facility] Co de Phone Number EDYTA OLIVER [address] [place] [address] * Vitamin D 25 hydroxy (07/05/2024 3:30 PM CDT) Vitamin D 25-OH 30 30 - 80 ng/mL Blood 07/05/2024 3:30 PM CDT 07/05/2024 9:56 PM CDT Katherine East NP LAB BLOOD ORDERABLES Final Resul t Performing Organization Address City/[facility]/ZIP Co de Phone Number EDYTA OLIVER [address] [place], [place] [id number] * (ABNORMAL) Erythrocyte sedimentation rate (07/05/2024 3:30 PM CDT) Erythrocyte sedimentation rate 57(H) 1 - 20 mm/hr Comment:Testing performed by : [facility], [facility], [place], [address] Blood 07/05/2024 3:30 PM CDT 07/05/2024 7:15 PM CDT us Katherine East FITNESS AND WELLNESS DIRECTOR LAB BLOOD ORDERABLES Final Resul t Performing Organization Address [facility] de Phone Number EDISONFILI BOYD [address] [place] [address] * Rheumatoid factor (07/05/2024 3:30 PM CDT) Rheumatoid factor, quant <10 <=15 IUnits/mL Blood 07/05/2024 3:30 PM CDT 07/05/2024 9:56 PM CDT us Katherine East FITNESS AND WELLNESS DIRECTOR LAB BLOOD ORDERABLES Final Resul t Performing Organization Address [facility] de Phone Number EDYTA OLIVER [address] [place] [address] * CRP (acute phase) (07/05/2024 3:30 PM CDT) CRP 3.3 <=10.0 mg/L Blood 07/05/2024 3:30 PM CDT 07/05/2024 9:56 PM CDT us Katherine East FITNESS AND WELLNESS DIRECTOR LAB BLOOD ORDERABLES Final Resul t Performing Organization Address [facility] [place] [address] [address] [place] [address] * Lipid panel (07/05/2024 3:30 [...] BLOOD ORDERABLES Final Resul t EDYTA BOYD [address] [place] [address] * (ABNORMAL) POCT hemoglobin A1c (04/22/2024 9:11 AM TEST OPERATOR) Hemoglobin A1C, POC 8.4 4.0 - 5.6 % Capillary blood 04/22/2024 9 :11 AM TEST OPERATOR Bethany DELACRUZ POINT OF CARE TEST LAXMI RABZELALEM Final Result * eGFR (02/11/2024 12:00 PM TEST OPERATOR) eGFR >90 >=60 mL/min/1. 73 m2 Comment: [...] reviewed 2021. Blood 02/11/2024 12:0 0 PM TEST OPERATOR 02/11/2024 7:54 PM TEST OPERATOR Whitney Matthews NP LAB BLOOD ORDERABLES Final R esult Performing Organization Address City/[facility]/ZIP Co de Phone Number EDYTA BOYD [address] [place] [address] * DIABETES EYE EXAM (01/19/2024 7:54 AM TEST OPERATOR) Historical Provider HEALTH MAINTENANCE Final Result * [...] ORDERABLES Final Resul t Performing Organization Address City/[facility]/ZIP Co de Phone Number EDYTA BOYD [address] [place] [address] * Thyroid Function [place] (10/22/2023 4:00 PM CDT) TSH 1.97 0.30 - 4.20 mcIUnit/mL Blood 10/22/2023 4:00 PM CDT 10/22/2023 8:26 PM CDT Katherine East NP LAB BLOOD ORDERABLES Final Resul t Performing Organization Address [facility] [place] [address] [address] [place] [address] * Hepatitis C antibody Blood (10/22/2023 4:00 [...] Address [facility] [place] [address] [address] [place] [address] * COLONOSCOPY (05/09/2021 11:16 AM TEST OPERATOR) Anatomical Region Laterality Modality Other Narrative Procedure Note Jhonathan Florez MD - 05/09/2021 11:16 AM CST [facility] Patient Name: Francie Conti Procedure Date: 05/09/2021 11:16 AM Date of : 1975 Admit Type: Outpatient Age: 45 Gender: Female Attending MD: Jhonathan Florez M.D. Room: [facility] ENDOSCOPY ROOM 1 Note Status: [...] passed under direct vision.The Pediatric Colonoscope [id number] was introduced through the anus and advanced [...] 11:16 AM Procedure Code(s): --- Professional --- 18568, Colonoscopy, flexible; with biopsy, single or multiple Diagnosis Code(s): --- Professional --- K63.5, Polyp of colon R19.4, Change in bowel habit K59.04, Chronic idiopathic constipation CPT copyright 2019 [employer]. All rights reserved. The codes documented in this report are preliminary and upon hide grader reviewmay be revised to meet current compliance requirements. Recognized by the [employer] for promoting quality [...] mass, calcification, or architectural distortion. Frida Nogueira FITNESS AND WELLNESS DIRECTOR IMG MAMMO PROCEDURES Final Re sult from Last 3 Months or Most Recently Relevant to Health Maintenance Insurance [facility] Advance Directives For more information, please contact: [phone] * Full Code (Latest Code Status on [...] 9:57 PM 01/23/2020 12:06 AM Care Teams Carrot Grader Inspector Relationship Specialty Start Date End Date Katherine East NP [address] [address] PCP - General Family Medicine 10/22/23 Celestine Monroe, PT Physical Therapist Physical Therapy 10/20/17 Cherie Parker PTA Physical Therapist Physical Therapy 11/03/17 Frida Nogueira, FITNESS AND WELLNESS DIRECTOR 4 [facility] [address] [address] Nurse Practitioner Nurse Practitioner 10/22/23 Halina Treviño MD PhD [id number] [place] [address] Surgeon Surgical Oncology 10/22/23
--- OUTSIDE RECORDS SUMMARY | 2024-09-20 15:05 | XMS_ITS | Referral Summary ---
Author Organization [facility] Address [address] [place] [address] Care Team Providers Care Micro Lab Analyst Name Role Phone Celestine Monroe PT Unavailable Unavaila ble Cherie Parker FLYER MAKER Unavailable Unavailab Katherine Delvalle NP Primary Care Provider [phone] Frida Nogueira CLOTH BOLT BANDER Unavailable [phone] Halina Treviño MD PhD Unavaila ble Encounters Date Type Department Care Team Description 09/20/2024 Telephone [facility] Gastroenterology at [address] [place] [address] Magdalena Leonard MA 08/04/2024 Telephone [facility] [id number] [place] [address] [address] [place] [address] Concepcion Balderrama MD Prior Auth (Dexcom G7) 08/03/2024 Telephone [facility] Diabetes and Endocrinology [address] [place] [phone] Concepcion Balderrama MD Prior Auth (Admelog) 07/08/2024 Orders Only [facility] Primary Care at [address] [phone] Katherine East NP 07/07/2024 Results Follow-Up [facility] Medical [facility] Primary Care at [address] [phone] Katherine East NP Erythrocyte sedimentation rate, CRP (acute phase), Rheumatoid factor, Additional followed-up results: 3 07/06/2024 Orders Only [facility] Primary Care at [address] [phone] Katherine East NP 07/06/2024 Telephone [facility] Primary Care at [address] [phone] Katherine East NP PA for Nexlizet 180-10MG tablets 07/05/2024 3:30 PM CDT - 07/05/2024 11:59 PM CDT Hospital Encounter [address] [address] Arthralgia of multiple joints; Vitamin D deficiency; Mixed hyperlipidemia Discharge Disposition: Discharge to home or self care 07/05/2024 3:30 PM CDT Lab [facility] Outpatient Lab at [address] [phone] 07/05/2024 3:00 PM CDT Office Visit [facility] Primary Care at [address] [phone] Katherine East NP Annual physical exam (Primary Dx); Mixed hyperlipidemia; Anxiety; Arthralgia of multiple joints; Vitamin D deficiency 07/01/2024 Telephone [facility] [address] [address] Concepcion Balderrama MD 06/29/2024 Telephone [facility] [address] [address] Concepcion Balderrama MD from Last 3 Months Allergies No known active allergies Medications blood-glucose meter,continuous (Dexcom G6 Art Department Head) misc Dexcom G6 Art Department Head muscogee Active BD Insulin Syringe Ultra-Fine 0.5 mL [...] 03/19 Assessment & Plan (04/22/2024 9:59 AM PAINTING DEPARTMENT SUPERVISOR): Chronic problem, not at goal. I emailed [...] 02/24/2024 Assessment & Plan (02/24/2024 11:21 AM PAINTING DEPARTMENT SUPERVISOR): I do not appreciate any clear fascial [...] 02/22/2024 Assessment & Plan (02/22/2024 11:57 PM PAINTING DEPARTMENT SUPERVISOR): - Differential includes biliary colic, GERD, PUD, DM 1 associated gastroparesis, IBS - On meloxicam, recommend adding daily PPI or famotidine for gastric prophylaxis - Eat smaller frequent meals - Follow labs and abdominal ultrasound - Instructed to go the ED if progression of symptoms Hyperlipidemia due to type 1 diabetes mellitus 1 03/22/2023 Assessment & Plan (04/22/2024 9:57 AM PAINTING DEPARTMENT SUPERVISOR): Chronic problem. On statin therapy, no changes. Assessment & Plan (01/21/2024 1:49 PM PAINTING DEPARTMENT SUPERVISOR): Continue statin therapy Insulin pump in place 01/21/2024 Assessment & Plan (04/22/2024 9:57 AM PAINTING DEPARTMENT SUPERVISOR): No pump setting changes. Assessment & Plan (01/21/2024 1:54 PM PAINTING DEPARTMENT SUPERVISOR): Have long acting , basal insulin ( [...] 05/20/2023 Assessment & Plan (05/20/2023 5:54 PM PAINTING DEPARTMENT SUPERVISOR): Refer to plastic surgery for eval Allergic rhinitis 05/20/2023 Assessment & Plan (05/20/2023 5:55 PM PAINTING DEPARTMENT SUPERVISOR): Consider OTC antihistamine daily. Monitor for improvement Right wrist pain 05/20/2023 Assessment & Plan (05/20/2023 5:54 PM PAINTING DEPARTMENT SUPERVISOR): Refer to Ortho Muscle strain 11/15/2022 Conjunctivitis [...] (07/20/2020): Added automatically from request for surgery [id number] Malignant neoplasm of female breast 02/03/2020 Overview (02/03/2020): Added automatically from request for surgery [id number] Assessment & Plan (10/22/2023 3:50 PM CDT): 2020 diagnosed, had double mastectomy. 1 more year of surveillance with Oncologist. Ductal carcinoma in situ of left breast 02/03/20 20 Overview (02/03/2020): Added automatically from request for surgery [id number] Ductal carcinoma in situ (DCIS) of left [...] UNCNTRL Assessment & Plan (01/21/2024 1:54 PM PAINTING DEPARTMENT SUPERVISOR): Chronic, uncontrolled, worsening A1c 8.9% goal A1c [...] ago was 8.2. 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 Referral placed and updated labs ordered. Assessment [...] on file Legal Sex Female 8:58 AM PAINTING DEPARTMENT SUPERVISOR Gender Identity Not on file Sexual Orientation Not on file Last Filed Vital Signs Vital Sign Reading Time Taken Comments Blood Pressure 114/72 07/05/2024 3:03 PM CDT Pulse 119 07/05/2024 3:03 PM CDT Temperature 37.1 C (98.7 F) 07/05/2024 3:03 PM CDT Respiratory Rate 18 05/20/2024 5:25 PM PAINTING DEPARTMENT SUPERVISOR Oxygen Saturation 95% 07/05/2024 3:03 PM CDT Inhaled Oxygen Concentration - - Weight 71.2 kg (157 lb) 07/05/2024 3:03 PM CDT Height 157.5 cm (5' 2.01) 07/05/2024 3:03 PM CD T Body Mass Index 28.71 07/05/2024 3:03 PM CDT Plan of Treatment Not on file Medical Devices Implanted Type Area Ticket Counter Device Identifier Shelf Expiration Date Model / Serial / Lot Synovis Wattblock Allian [id number] [place] Microvascular 3mm Ring Pin Protective Cover Jaw Assembly Latex Free - S0 - [id number] Implanted:Qty: 1 on 02/21/2020 by Jose Herrera MD at [facility] Clip Right: Breast Synovis Wattblock Allian [id number] 10/13/2024 [id number] / 0 / [id number] Description:3.0 rabbit dresser Synovis Wattblock Allian 2753 [place] 2.5mm Ring Pin Ultrasonic Doppler 20mhz Quill Stripper Anastomosis Latex Free - S0 - [id number] Implanted:Qty: 1 on 02/21/2020 by Vandana Bergman MD at [facility] Clip Left: Breast Synovis Micro Stand In Claudette [id number] 09/25/2024 2753 / 0 / [id number] [employer]ol Inc/C R Bard [id number] Phasix 8x6in Monofilament Scaffold Full Resorbable Rectangle Mesh - S0 - [id number] Implanted:Qty: 1 on 02/21/2020 by Vandana Bergman MD at [facility] Mesh Bilateral: Abdomen [employer] Inc/C R Bard [id number] 04/13/2021 [id number] / 0 / [id number] Sientra Inc Allox2-14se Allox 14x11.2cm Smooth Surface Integrate Port Breast P6-7.3cm Mid - [id number] - [id number] Implanted:Qty: 1 on 01/21/2020 by Vandana Bergman MD at [facility] Right: Chest Sientra Inc 08/10/2024 ALLOX2-14S E / [id number] / Sientra Inc Allox2-Fh14se Allox2 14x12.9cm Smooth Surface Integrate Port Breast P6.1-7.3cm - [id number] - [id number] Implanted:Qty: 1 on 01/21/2020 by Vandana Bergman MD at [facility] Left: Chest Sientra Inc 09/20/2024 ALLOX2-FH1 4SE / [id number] / Allergan Usa [employer] [id number] Alloderm Select [id number] Allograft Regenerative Freeze Dried - [id number] Implanted:Qty: 1 on 01/21/2020 by Vandana Bergman MD at [facility] Left: Chest [employer] [id number] 09/13/2021 [id number] / / [id number] Allergan [employer] [id number] Alloderm Select 32i10un Allograft Regenerative Freeze Dried - [id number] Implanted:Qty: 1 on 01/21/2020 by Vandana Bergman MD at [facility] Right: Chest [employer] [id number] 09/13/2021 [id number] / / [id number] Procedures Procedure Name Priority Date/Time Associated Diagnosis [...] HEMOGLOBIN A1C Routine 04/22/2024 9 :11 AM PAINTING DEPARTMENT SUPERVISOR Type 1 diabetes mellitus with hyperglycemia (HCC) EGFR Routine 02/11/2024 12:00 PM PAINTING DEPARTMENT SUPERVISOR Colicky RUQ abdominal pain HM DIABETES EYE EXAM Routine 01/19/2024 7:54 AM PAINTING DEPARTMENT SUPERVISOR ALBUMIN CREATININE RATIO, URINE Routine 10/24/2023 10:15 AM CDT Type 1 diabetes mellitus without complication (HCC) HEPATITIS C ANTIBODY Routine 10/22/2023 4:00 PM CDT Encounter for hepatitis C screening test for low risk patient THYROID FUNCTION CASCADE Routine 10/22/2023 4:00 PM CDT Type 1 diabetes mellitus without complication (HCC) COLONOSCOPY 05/09/2021 11:16 AM PAINTING DEPARTMENT SUPERVISOR SCREENING MAMMOGRAM BILATERAL W MAX Schedule Routine, [...] last revised on 2019. Testing performed by: [facility], [address] [place]., [address] Blood 07/05/2024 3:30 PM CDT 07/06/2024 10:10 AM CDT us Katherine East CLOTH BOLT BANDER LAB BLOOD ORDERABLES Final Resul t EDISONFILI BOYD [address] [place] [email or web address] [place] [address] * Vitamin D 25 hydroxy (07/05/2024 3:30 PM CDT) Vitamin D 25-OH 30 30 - 80 ng/mL Blood 07/05/2024 3:30 PM CDT 07/05/2024 9:56 PM CDT us Katherine East NP LAB BLOOD ORDERABLES Final Resul t Performing Organization Address [facility] Co de Phone Number EDISONFILI [phone] [place] [email or web address] [address] * (ABNORMAL) Erythrocyte sedimentation rate (07/05/2024 3:30 PM CDT) Pathologist [facility] Erythrocyte sedimentation rate 57(H) 1 - 20 mm/hr Comment:Testing performed by : [facility], [facility], [place], [address] Blood 07/05/2024 3:30 PM CDT 07/05/2024 7:15 PM CDT us Katherine East NP LAB BLOOD ORDERABLES Final Resul t Performing Organization Address City/[facility] Co de Phone Number EDYTA [address] [place] [email or web address] [address] * Rheumatoid factor (07/05/2024 3:30 PM CDT) Rheumatoid factor, quant <10 <=15 IUnits/mL Blood 07/05/2024 3:30 PM CDT 07/05/2024 9:56 PM CDT us Katherine East CLOTH BOLT BANDER LAB BLOOD ORDERABLES Final Resul t Performing Organization Address City/[facility] Co de Phone Number EDYTA BOYD [address] [place] [address] * CRP (acute phase) (07/05/2024 3:30 PM CDT) CRP 3.3 <=10.0 mg/L Blood 07/05/2024 3:30 PM CDT 07/05/2024 9:56 PM CDT us Katherine East CLOTH BOLT BANDER LAB BLOOD ORDERABLES Final Resul t Performing Organization Address [facility] de Phone Number EDYTA BOYD [address] Department [place] [address] * Lipid panel (07/05/2024 3:30 PM CDT) [...] BLOOD ORDERABLES Final Resul t EDYTA BOYD [address] Department of Laboratories [place], [place] [id number] * (ABNORMAL) POCT hemoglobin A1c (04/22/2024 9:11 AM PAINTING DEPARTMENT SUPERVISOR) Hemoglobin A1C, POC 8.4 4.0 - 5.6 % Capillary blood 04/22/2024 9 :11 AM PAINTING DEPARTMENT SUPERVISOR Bethany DELACRUZ POINT OF CARE TEST ORDE RABLES Final Result * eGFR (02/11/2024 12:00 PM PAINTING DEPARTMENT SUPERVISOR) eGFR >90 >=60 mL/min/1. 73 m2 Comment: [...] reviewed 2021. Blood 02/11/2024 12:0 0 PM PAINTING DEPARTMENT SUPERVISOR 02/11/2024 7:54 PM PAINTING DEPARTMENT SUPERVISOR Whitney Matthews CLOTH BOLT BANDER LAB BLOOD ORDERABLES Final R esult Performing Organization Address City/[facility] Co de Phone Number EDISONFILI BOYD [address] [place] [email or web address] [address] * DIABETES EYE EXAM (01/19/2024 7:54 AM PAINTING DEPARTMENT SUPERVISOR) Historical Provider HEALTH MAINTENANCE Final Result * [...] CDT 10/24/2023 3:48 PM CDT Katherine East CLOTH BOLT BANDER LAB URINE ORDERABLES Final Resul t Performing Organization Address [facility] Co de Phone Number EDYTA BOYD [phone] [place] [email or web address] [address] * Thyroid Function [place] (10/22/2023 4:00 PM CDT) TSH 1.97 0.30 - 4.20 mcIUnit/mL Blood 10/22/2023 4:00 PM CDT 10/22/2023 8:26 PM CDT Katherine East CLOTH BOLT BANDER LAB BLOOD ORDERABLES Final Resul t Performing Organization Address City/[facility] Co de Phone Number EDYTA BOYD [address] [place] [email or web address] [address] * Hepatitis C antibody Blood [...] MICROBIOLOGY - GENERAL ORDER EULOGIO Final Result [facility] [address] [place] [address] * COLONOSCOPY (05/09/2021 11:16 AM PAINTING DEPARTMENT SUPERVISOR) Anatomical Region Laterality Modality Other Narrative Procedure Note Jhonathan Florez MD - 05/09/2021 11:16 AM CST [facility] Patient Name: Francie Conti Procedure Date: 05/09/2021 11:16 AM Date of : 1975 Admit Type: Outpatient Age: 45 Gender: Female Attending MD: Jhonathan Florez M.D. Room: [facility] ENDOSCOPY ROOM 1 Note Status: Finalized Patient [...] passed under direct vision.The Pediatric Colonoscope [id number] was introduced through the anus and advanced [...] 11:16 AM Procedure Code(s): --- Professional --- 79391, Colonoscopy, flexible; with biopsy, single or multiple Diagnosis Code(s): --- Professional --- K63.5, Polyp of colon R19.4, Change in bowel habit K59.04, Chronic idiopathic constipation CPT copyright 2019 [employer]. All rights reserved. The codes documented in this report are preliminary and upon machine joiner cementer reviewmay be revised to meet current compliance requirements. Recognized by the [employer] for promoting quality [...] mass, calcification, or architectural distortion. Frida Nogueira CLOTH BOLT BANDER IMG MAMMO PROCEDURES Final Re sult from Last 3 Months or Most Recently Relevant to Health Maintenance Insurance [facility] Advance Directives For more information, please contact: [phone] * Full Code (Latest Code Status on [...] 9:57 PM 01/23/2020 12:06 AM Care Teams Micro Lab Analyst Relationship Specialty Start Date End Date Katherine East NP [address] [facility] [address] [place] [address] PCP - General Family Medicine 10/22/23 Celestine Monroe, PT Physical Therapist Physical Therapy 10/20/17 Cherie Parker, FLYER MAKER Physical Therapist Physical Therapy 11/03/17 Frida Nogueira, CLOTH BOLT BANDER [address] [place] [address] [address] [place] [address] Nurse Practitioner Nurse Practitioner 10/22/23 Halina Treviño MD PhD [phone] [place] [address] Surgeon Surgical Oncology 10/22/23
== END 2024-09-20 15:07 | disposition left against medical advice (07) ==
LOC: ANHED 15:02
PROVIDERS: PCP Nurse Practitioner Family
DX: Z53.21 Procedure and treatment not carried out due to patient leaving prior to being seen by health care provider (principal)
CPT/HCPCS: 99199